=== PATIENT | female | born 1995 | race Caucasian/White ===

== ENCOUNTER 2019-11-29 23:48 | Observation (INO) | payer OTHER, SELFPAY ==
--- NOTE | 2019-11-29 23:48 | OBADM ---
This patient, Sierra Cheng, admitted to the OB room Labor/Delivery/Recovery 105 for observation. Patient/family oriented to hospital policies and general routines including ID bracelet, bed and alarms, visiting hours, pain management, procedures, bathroom and other care routines, personal items, smoking policy, room service/diet, and visiting hours. Patient/Family are encouraged to report perceived risks to care and to ask questions if they do not understand what they are told or what they should do.
[2019-11-30 00:07] VITALS: BP 105/71; PULSE 96
[2019-11-30 00:16] VITALS: BP 101/64; PULSE 81
[2019-11-30 00:21] VITALS: BMI 25.0
[2019-11-30 00:31] VITALS: BP 96/37; PULSE 89
[2019-11-30 01:07] LABS: Add Urine Microscopic? YES; Appearance Urine Clear (Clear); Bacteria Urine Trace /hpf; Bilirubin Urine Negative (Negative); Blood Urine Negative (Negative); Color Urine Yellow (Yellow); Glucose Urine UA Negative (Negative); Ketones Urine 1+ mg/dL (Negative); Leukocyte Esterase Ur Negative LEU/UL (Negative); Mucus Urine Moderate /lpf; Nitrate Urine Negative (Negative); Protein Urine Negative (Negative); RBC Urine 0-2 /hpf (0-2); Specific Grav Ur 1.014 (1.001-1.035); Squamous Epithelial Cell Urine Occasional /hpf (Few); Urobilinogen Urine Negative mg/dL (<2.0); WBC Urine 0-3 /hpf
--- NOTE | 2019-11-30 02:29 | PC.NURSE ---
Updated Dr. Gonsalez of unchanged SVE after 2 hours of monitoring. ROM plus results were negative for SROM. VSS. UA results given. Discharge orders received.
--- NOTE | 2019-11-30 02:45 | PC.NURSE ---
Discharge instructions reviewed with patient. Labor precautions reviewed. Patient states understanding of labor precautions and feels comfortable going home. Patient denies questions at present time.
--- NOTE | 2019-11-30 02:54 | PC.NURSE ---
Patient left ambulating from OB unit.
--- NOTE | 2019-12-16 08:30 | P.PNOB_ITS ---
OB - Triage/Final Diagnosis Evaluation Laboratory results: Laboratory Tests 11/30/19 00:55 Urine Color Yellow Urine Appearance Clear Urine pH 6.0 Ur Specific [place] 1.014 Urine Protein Negative Urine Glucose (UA) Negative Urine Ketones 1+ H Ur Blood (Man) Negative Urine Nitrate Negative Urine Bilirubin Negative Urine Urobilinogen Negative Leukocyte Esterase Rfl Negative Urine RBC 0-2 Urine WBC 0-3 Ur Squamous Epith Cells Occasional Urine Bacteria Trace Urine Mucus Moderate H Final Diagnosis (1) False labor: Code(s): O47.9 - False labor, unspecified Status: Acute
== END 2019-11-30 02:54 | disposition home or self-care (01) ==
PROVIDERS: Admitting Provider Obstetrics & Gynecology; Visit Provider Obstetrics & Gynecology
DX: O47.9 False labor, unspecified (principal); Z3A.00 Weeks of gestation of pregnancy not specified
CPT/HCPCS: 81001; G0378; G0379

== ENCOUNTER 2024-05-11 14:17 | Observation (INO) | payer SELFPAY ==
[2024-05-11 13:45] VITALS: BP 109/68; PULSE 82
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
[2024-05-11 14:00] VITALS: BP 110/71; PULSE 67
[2024-05-11 14:15] VITALS: BP 106/66; PULSE 64
[2024-05-11 14:30] VITALS: BP 107/73; PULSE 92
[2024-05-11] MEDS: FAMOTIDINE 20 MG/2 ML VIAL IV PUSH (15:51)
[2024-05-11] MEDS: ONDANSETRON INJ 4 MG/2 ML VIAL IV PUSH (15:51)
[2024-05-11] MEDS: LACTATED RINGERS 1,000 ML 125 ML IV CONT (15:53)
[2024-05-11 16:02] LABS: Basophils Percent Auto 0.5 % (0.2-1.2); Eosinophils Absolute Auto 0.1 K/mm3 (0-0.3); Eosinophils Percent Auto 0.9 % (0-4.4); Hematocrit 30.8 % (37.0-47.0); Hemoglobin 10.3 g/dL (12.0-15.0); Immature Granulocyte Percent A 1.1 % (0-0.5); Lymphocytes Absolute Auto 2.01 K/mm3 (0.9-3.2); Lymphocytes Percent Auto 22.8 % (18.3-44.2); Mean Corpuscular HGB Conc 33.4 g/dl (32-36); Mean Corpuscular Hemoglobin 30.7 pg (26-34); Mean Corpuscular Volume 91.7 fl (80-100); Mean Platelet Volume 10.7 fl (7.4-10.4); Monocytes Absolute Auto 0.5 K/mm3 (0.1-0.6); Monocytes Percent Auto 5.3 % (2.6-8.5); Neutrophils Absolute Auto 6.1 K/mm3 (1.3-6.7); Neutrophils Percent Auto 69.4 % (45.5-73.1); Platelet Count Result 259 k/mm3 (150-375); Red Blood Count 3.36 M/mm3 (4.2-5.4); White Blood Count 8.8 K/mm3 (4.5-10.0)
[2024-05-11 16:13] LABS: Alanine Aminotransferase 13 U/L (6-35); Albumin Level 3.4 g/dL (3.5-5.1); Alkaline Phosphatase 158 U/L (38-126); Anion Gap 2 mmol/L (4-12); Aspartate Amino Transferase 19 U/L (14-36); Bilirubin,Total 0.4 mg/dL (0.2-1.3); Blood Urea Nitrogen 4 mg/dL (7-17); Calcium 8.2 mg/dL (8.4-10.2); Carbon Dioxide 23 mmol/L (22-30); Chloride 107 mmol/L (98-107); Estimated Glomerular Filt Rate > 60; Glucose 79 mg/dL (65-110); Potassium 3.3 mmol/L (3.4-5.0); Sodium 132 mmol/L (137-145)
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
[2024-05-11 19:27] LABS: OBXCEM ROM Plus Negative (Negative)
--- NOTE | 2024-05-11 19:50 | PM.OBTRLD ---
OB - Triage/Final Diagnosis Visit Information Comments/Additional reasons for admission: I have assessed the risk for this patient, Sierra Cheng, and determined that she would benefit from observation care. Evaluation Laboratory results: Laboratory Tests 05/11/24 05/11/24 14:00 15:56 WBC 8.8 RBC 3.36 L Hgb 10.3 L Hct 30.8 L MCV 91.7 MCH 30.7 MCHC 33.4 RDW 13.0 Plt Count 259 MPV 10.7 H Immature Gran % (Auto) 1.1 H Neut % (Auto) 69.4 Lymph % (Auto) 22.8 [place] % (Auto) 5.3 Eos % (Auto) 0.9 Baso % (Auto) 0.5 Lymph # (Auto) 2.01 [place] # (Auto) 0.5 Eos # (Auto) 0.1 Baso # (Auto) 0.0 Abs Immat Gran (auto) 0.10 H Absolute Neuts (auto) 6.1 Absolute Nucleated RBC 0.000 Nucleated RBC % 0.0 Sodium 132 L Potassium 3.3 L Chloride 107 Carbon Dioxide 23 Anion Gap 2 L BUN 4 L Creatinine 0.40 L Estim Creat Clear Calc Not Reportable Estimated GFR > 60 Glucose 79 Calcium 8.2 L Total Bilirubin 0.4 AST 19 ALT 13 Alkaline Phosphatase 158 H Total Protein 7.0 Albumin 3.4 L Membranes Rupture Rom plus negative Vital signs: Vital Signs - 24 hr 05/11/24 13:45 05/11/24 14:00 05/11/24 14:15 Pulse Rate 82 67 64 Blood Pressure 109/68 110/71 106/66 05/11/24 14:30 Pulse Rate 92 Blood Pressure 107/73 Final Diagnosis (1) Abdominal pain affecting : Code(s): O26.899 - Other specified related conditions, unspecified trimester; R10.9 - Unspecified abdominal pain Status: Acute (2) Heartburn during : Code(s): O26.899 - Other specified related conditions, unspecified trimester; R12 - Heartburn Status: Acute
== END 2024-05-11 18:45 | disposition home or self-care (01) ==
PROVIDERS: Admitting Provider Obstetrics & Gynecology; Visit Provider Obstetrics & Gynecology
DX: O26.893 Other specified pregnancy related conditions, third trimester (principal); R10.9 Unspecified abdominal pain; R12 Heartburn; Z3A.32 32 weeks gestation of pregnancy
CPT/HCPCS: 36415; 80053; 84112; 85025; 96374; 96375; G0378; G0379; J2405; J7120

== ENCOUNTER 2024-05-16 12:55 | Observation (INO) | payer OTHER, SELFPAY ==
[2024-05-16 13:46] VITALS: BP 110/62; PULSE 78
--- NOTE | 2024-05-16 14:19 | OBADM ---
This patient, Sierra Cheng, admitted to the OB room OB Post 117 for observation. Patient/family oriented to hospital policies and general routines including ID bracelet, bed and alarms, visiting hours, pain management, procedures, bathroom and other care routines, personal items, smoking policy, room service/diet, and visiting hours. Patient/Family are encouraged to report perceived risks to care and to ask questions if they do not understand what they are told or what they should do.
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
[2024-05-16 14:34] LABS: Add Urine Microscopic? YES; Appearance Urine Turbid (Clear); Bacteria Urine 3+ /hpf; Bilirubin Urine Negative (Negative); Blood Urine Negative (Negative); Color Urine Yellow (Yellow); Glucose Urine UA Negative (Negative); Ketones Urine Trace mg/dL (Negative); Leukocyte Esterase Ur 3+ LEU/UL (Negative); Need Manual Microscopic Reviewed; Nitrate Urine Negative (Negative); Protein Urine Trace mg/dL (Negative); RBC Urine 0-2 /hpf (0-2); Specific Grav Ur 1.013 (1.001-1.035); Squamous Epithelial Cell Urine Many /hpf (Few); Urobilinogen Urine 0.2 mg/dL (<2.0); WBC Urine 21-50 /hpf (0-3); pH Urine 8.5 (5.0-9.0)
[2024-05-16 14:38] LABS: Amorphous Sediment Urine Few
[2024-05-16] MEDS: SODIUM CHLORIDE 0.9% IV 1,000 ML 999 ML IV CONT ×2 (15:28→17:02)
[2024-05-16] MEDS: ONDANSETRON INJ 4 MG/2 ML VIAL IV PUSH (15:28)
[2024-05-16] MEDS: cefTRIAXone 2 GM/NS 100 ML 2 GM/100 ML BAG IVPB (15:29)
[2024-05-16] MEDS: PANTOPRAZOLE 40 MG TABLET PO (15:29)
[2024-05-16 15:52] LABS: Amphetamine Screen Urine Negative (Negative); Barbiturate Screen Urine Negative (Negative); Benzodiazepines Screen Urine Negative (Negative); Cannabinoid Screen Urine Positive (Negative); Cocaine Screen Urine Positive (Negative); Methadone Screen Urine Negative (Negative); Opiate Screen Urine Negative (Negative); Phencyclidine Screen Urine Negative (Negative)
[2024-05-16] MEDS: BISACODYL 10 MG SUPPOSITORY RECTAL (16:03)
[2024-05-16 16:09] LABS: Basophils Percent Auto 0.2 % (0.2-1.2); Eosinophils Absolute Auto 0.1 K/mm3 (0-0.3); Hematocrit 27.9 % (37.0-47.0); Hemoglobin 9.4 g/dL (12.0-15.0); Immature Granulocyte Absolute 0.03 K/mm3 (0.00-0.031); Immature Granulocyte Percent A 0.5 % (0-0.5); Lymphocytes Absolute Auto 1.56 K/mm3 (0.9-3.2); Lymphocytes Percent Auto 25.8 % (18.3-44.2); Mean Corpuscular HGB Conc 33.7 g/dl (32-36); Mean Corpuscular Hemoglobin 30.5 pg (26-34); Mean Corpuscular Volume 90.6 fl (80-100); Mean Platelet Volume 10.2 fl (7.4-10.4); Monocytes Absolute Auto 0.6 K/mm3 (0.1-0.6); Monocytes Percent Auto 9.8 % (2.6-8.5); Neutrophils Absolute Auto 3.8 K/mm3 (1.3-6.7); Neutrophils Percent Auto 62.7 % (45.5-73.1); Platelet Count Result 203 k/mm3 (150-375); Red Blood Count 3.08 M/mm3 (4.2-5.4); Red Cell Distribution Width 12.6 % (11.5-14.5)
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
[2024-05-16 16:19] LABS: Alanine Aminotransferase 12 U/L (6-35); Alkaline Phosphatase 132 U/L (38-126); Anion Gap -5 mmol/L (4-12); Aspartate Amino Transferase 20 U/L (14-36); Bilirubin,Total 0.3 mg/dL (0.2-1.3); Blood Urea Nitrogen 3 mg/dL (7-17); Calcium 8.7 mg/dL (8.4-10.2); Carbon Dioxide 28 mmol/L (22-30); Chloride 104 mmol/L (98-107); Estimated Glomerular Filt Rate > 60; Glucose 84 mg/dL (65-110); Lipase 29 U/L (23-300); Potassium 3.1 mmol/L (3.4-5.0); Sodium 127 mmol/L (137-145)
--- NOTE | 2024-05-16 16:44 | PC.NURSE ---
DCFS notified of pt living situation and positive UDS. Intake number [id number] Yokasta Lopez
[2024-05-16 16:46] LABS: OBXCEM ROM Plus Negative (Negative)
--- NOTE | 2024-05-19 08:49 | P.PNOB_ITS ---
OB - Triage/Final Diagnosis Visit Information Date of evaluation: 05/16/24 Reason for evaluation: other (abdominal pain) Comments/Additional reasons for admission: I have assessed the risk for this patient, Sierra Cheng, and determined that she would benefit from observation care. Evaluation Laboratory results: Laboratory Tests 05/16/24 05/16/24 05/16/24 13:44 14:10 16:04 WBC 6.0 RBC 3.08 L Hgb 9.4 L Hct 27.9 L MCV 90.6 MCH 30.5 MCHC 33.7 RDW 12.6 Plt Count 203 MPV 10.2 Immature Gran % (Auto) 0.5 Neut % (Auto) 62.7 Lymph % (Auto) 25.8 [place] % (Auto) 9.8 H Eos % (Auto) 1.0 Baso % (Auto) 0.2 Lymph # (Auto) 1.56 [place] # (Auto) 0.6 Eos # (Auto) 0.1 Baso # (Auto) 0.0 Abs Immat Gran (auto) 0.03 Absolute Neuts (auto) 3.8 Absolute Nucleated RBC 0.000 Nucleated RBC % 0.0 Sodium 127 L Potassium 3.1 L Chloride 104 Carbon Dioxide 28 Anion Gap -5 L BUN 3 L Creatinine 0.50 L Estim Creat Clear Calc Not Reportable Estimated GFR > 60 Glucose 84 Calcium 8.7 Total Bilirubin 0.3 AST 20 ALT 12 Alkaline Phosphatase 132 H Total Protein 6.0 L Albumin 3.0 L Lipase 29 Urine Color Yellow Urine Appearance Turbid H Urine pH 8.5 Ur Specific [place] 1.013 Urine Protein Trace Urine Glucose (UA) Negative Urine Ketones Trace H Ur Blood (Man) Negative Urine Nitrate Negative Urine Bilirubin Negative Urine Urobilinogen 0.2 Add Ur Microanalysis Reviewed Leukocyte Esterase Rfl 3+ H Urine RBC 0-2 Urine WBC 21-50 H Ur Squamous Epith Cells Many H Amorphous Sediment Few H Urine Bacteria 3+ H Urine Casts 3-5 Membranes Rupture Rom plus negative Urine Opiates Screen Negative Urine Methadone Screen Negative Ur Barbiturates Screen Negative Ur Phencyclidine Scrn Negative Ur Amphetamine Screen Negative U Benzodiazepines Scrn Negative Urine Cocaine Screen Positive A U Cannabinoids Screen Positive A
== END 2024-05-16 18:14 | disposition home or self-care (01) ==
PROVIDERS: Admitting Provider Student in an Organized Health Care Education/Training Program; Visit Provider Student in an Organized Health Care Education/Training Program
DX: O26.893 Other specified pregnancy related conditions, third trimester (principal); R10.9 Unspecified abdominal pain; Z3A.33 33 weeks gestation of pregnancy
CPT/HCPCS: 36415; 80053; 80307; 81001; 83690; 84112; 85025; 87086; 96374; 96375; A9270; G0378; G0379; J0696; J2405; J7030

== ENCOUNTER 2024-11-18 10:21 | Emergency (ER) | payer BC, SELFPAY ==
--- NOTE | 2024-11-18 10:24 | ED_ITS ---
HPI - Dental/Oral General Chief complaint: Dental/Oral Stated complaint: Dental/Oral Time Seen by Provider: 11/18/24 10:25 Source: patient Mode of arrival: ambulatory Limitations: no limitations History of Present Illness HPI Narrative: Sierra is a 29 year old female patient presenting to the clinic today with c/o of chronic dental pain but worsened over the last 3 days. Reporting pain to the right lower jaw. States that when she had children it destroyed her teeth. Denies any fever, chills, or body aches. Is concerned about a dental abscess- had dental abscess 2 years ago. Rates pain 12/20 currently and has been taking Tylenol for pain. Related Data Home Medications ?Medication ?Instructions ?Recorded ?Confirmed ?Last Taken ?Type etonogestrel 68 mg subdermal 1 implant subdermal ONCE 11/18/24 11/18/24 Unknown History implant (Nexplanon) gabapentin 100 mg capsule 100 mg PO DAILY 11/18/24 11/18/24 Unknown History Allergies Allergy/AdvReac Type Severity Reaction Status Date / Time promethazine AdvReac Unknown HIVES/VOMIT Verified 11/18/24 10:30 ING Review of Systems Review of Systems: Pertinent positives per HPI. Patient denies any fever, chills, rash, headache, visual changes, dizziness, cough, shortness of breath, chest pain, palpitations, nausea, vomiting, diarrhea, constipation, abdominal pain, or any urinary issues. PMFSH Comments At the time of my signature, I reviewed and agree with the nursing past medical, surgical, social, and family history. There is no relevant family history pertinent to the patient complaint. Exam Narrative: General: Well-developed, well nourished, in acute pain, tearful Head: Normocephalic, atraumatic Eyes: Pupils equally round and reactive to light bilaterally, EOM intact, sclera and conjunctive clear, no discharge, lids normal Ears: TMs intact and clear, ear canals clear, no drainage, grossly hearing normal. Nose: Nares patent, no discharge, no inflammation, no sinus tenderness. Mouth: Oral pharynx without lesions or masses, poor dentition with multiple cavities and broken teeth, MMM. Dental pain to the right lower jaw with gingival swelling without palpable abscess. Neck: Supple, trachea midline, no enlargement of anterior or posterior cervical nodes, no thyroid masses or goiter palpable. Cardio: Regular rate and rhythm, s1 and s2 normal, no murmur appreciated. Resp: Clear to auscultation bilaterally, no rhonchi, rales, wheezing or rubs Course Course Emergency Course: Portions of this record may have been created with voice recognition software. Level of Care: Express Care Visit Vital Signs Vital signs: Vital Signs Temperature 36.7 C 11/18/24 10:28 Pulse Rate 91 11/18/24 10:28 Respiratory Rate 18 11/18/24 10:28 Blood Pressure 144/101 H 11/18/24 10:28 Pulse Oximetry 98 11/18/24 10:28 Oxygen Delivery Room Air 11/18/24 10:28 Temperature 36.7 C 11/18/24 10:28 Pulse Rate 91 11/18/24 10:28 Respiratory Rate 18 11/18/24 10:28 Blood Pressure 144/101 H 11/18/24 10:28 Pulse Oximetry 98 11/18/24 10:28 Oxygen Delivery Room Air 11/18/24 10:28 Vital signs reviewed MDM - Dental/Oral MDM Narrative Medical decision making narrative: At the time of visit patient is resting comfortably on the exam table. Patient appears to be nontoxic. Patient is tearful in rating pain 8/10. Has been taking Tylenol. Offered 60 mg Toradol injection and patient agrees to this. States she has to have documentation of medication she is taking and she cannot have anything show up on a drug screen as she is regularly tested. Medications: Toradol 60 mg IM given in the clinic today Plan: I suspect patient has dental infection/pain. Prescription for Augmentin and ibuprofen was sent to the pharmacy. Patient continue taking Tylenol. Recommend following up with dentist as soon as possible. Supportive measures were discussed with the patient and they voiced understanding discharge instructions and agrees to treatment plan. Return precautions reviewed Differential Diagnosis Differential diagnosis: Likely gingival abscess, dental caries, toothache, dental abscess, fracture of tooth and aphthous ulcer Discharge Plan Discharge Clinical Impression: Pain, dental, Dental infection Patient Disposition: Home Condition: Stable Instructions: Antibiotic Form, Toothache (ED) Additional Instructions: Toradol 60 mg IM given in the clinic today for pain Take medications as prescribed-Augmentin and ibuprofen Increase fluids and stay well hydrated May take Tylenol additionally as needed for pain or fever-may take 650 mg every 6 hours or you may take a 1000 mg every 8 hours. May apply Orajel to the affected area to help alleviate pain May apply warm or cool compress to the affected area to help alleviate pain Follow-up with your dentist as soon as possible Patient Language: Armenian Prescriptions: New amoxicillin-pot clavulanate 875-125 mg tablet 1 tablet PO Q12H 10 Days Qty: 20 0RF ibuprofen 800 mg tablet 800 mg PO TID 10 Days Qty: 30 0RF No Action Nexplanon 68 mg implant 1 implant subdermal ONCE Rx Instructions: as a single dose gabapentin 100 mg capsule 100 mg PO DAILY Follow-up/Referrals: PHYSICIAN,COUNSELING PROGRAM LEADER [Primary Care Provider] - Time of Disposition: 10:37 Quality NIHSS Nursing Documentation ED NIHSS nursing documentation: reviewed/agree
[2024-11-18 10:28] VITALS: BP 144/101; PULSE 91; RESP 18; TEMP 36.7; O2SAT 98
--- OUTSIDE RECORDS SUMMARY | 2024-11-18 10:30 | XMS_ITS | Data Portability ---
Author Organization [facility] JUAN FRocael [facility] Address [address] [place] [address] Care Team Providers Care Ingredient Scaler Helper Name Role Phone JULIETA JONES Appliance Service Representative Assessment Encounter Date Assessment Date Assessment LastModified by Organization Details LastModified Time 07/06/2024 07/06/2024 Presents today for first PP appointment, delivered vaginally on 06/22/24 [email or web address] Not available 07/06/2024 10:15:43 Plan of Treatment Reminders Order Date Submit Date Provider Last Modified By Organization Details Last Modified Time Details Appointments None recorde d. Lab urinaly sis, dipstic k 2024 025 In-Office Order, Internal Use Only DO Not Attach Compendium DO Not Attach Compendium, Do Not Delete/merge, [id number] 5 10:42:09 urinaly sis, dipstic k 2023 024 [email or web address] In-Office Order, Internal Use Only DO Not Attach Compendium DO Not Attach Compendium, Do Not Delete/merge, [id number] 14:24:07 vaginal pathoge ns panel, LONDON+pro be, vaginal fluid 2023 024 [facility], [address] [place] [address], [address], [place], [address], 4 08:29:18 pregnan cy test, urine 2023 024 [email or web address] In-Office Order, Internal Use Only DO Not Attach Compendium DO Not Attach Compendium, Do Not Delete/merge, [id number] 4 17:13:06 prenata l panel 2023 024 [facility], [address], [address], [place], [address], 4 10:15:00 varicel la zoster virus IgG Ab, QN, IA, serum 2023 024 [facility], [address], [address], [place], [address], 4 10:15:06 drug screen, 14 drugs (detect imed), urine 2023 024 [facility], [address], [address], [place], [address], 4 10:15:03 aneuplo idy risk and X & Y analysi s, chromos ome specifi c circula ting cell free (CCF) DNA, materna l serum 2023 024 [facility], [address], [address], [place], [address], 4 17:05:31 culture , urine 2022 023 [facility], [address], [place], [address], 3 20:09:11 drug screen, urine 2022 023 [facility], [address], [place], [address], 3 20:09:04 hemoglo bin S (hbs), presenc e, blood 2022 023 [facility], [address], [address], [place], [address], 3 20:09:08 varicel la zoster virus IgG Ab, QN, IA, serum 2022 023 [facility], [address], [address], [place], [address], 20:09:12 Hepatit is C IgG Ab, qual, serum 2022 023 [facility], [address], [address], [place], [address], 3 20:09:06 CBC w/ auto diff 2022 023 [facility], [address], [address], [place], [address], 3 03:08:47 RPR (rapid plasma reagin) , serum 2022 023 E[facility]QU[facility]EL [facility], [address], [address], [place], [address], 3 20:09:11 HBsAg (hepati tis B surface Ag), EIA, serum 2022 023 EZEQUIEL [facility], [address], [address], [place], [address], 3 20:09:10 rubella IgG Ab, quant immunoa ssay, serum or plasma 2022 023 E[facility]QU[facility]EL [facility], [address], [address], [place], [address], 3 20:09:09 cf (cystic fibrosi s) profile 2022 023 E[facility], [address], [address], [place], [address], 3 20:09:07 abo group + rh type, blood 2022 023 [facility], [address], [address], [place], [address], 3 20:09:09 antibod y screen, serum or plasma 2022 023 [facility], [address], [address], [place], [address], 3 20:09:08 HIV 1 + 2, meaning ful use set 2022 023 [facility], [address], [place], [address], 3 20:09:12 chlamyd ia trachom atis + neisser ia gonorrh oeae + trichom onas vaginal is DNA panel, LONDON+pro be, unspeci fied specime n 2022 023 [facility], [address], [place], [address], 3 20:09:07 urinaly sis, dipstic k 2022 023 [email or web address] In-Office Order, Internal Use Only DO Not Attach Compendium DO Not Attach Compendium, Do Not Delete/merge, 3 17:07:26 pregnan cy test, urine 2022 023 [email or web address] In-Office Order, Internal Use Only DO Not Attach Compendium DO Not Attach Compendium, Do Not Delete/merge, 3 17:07:26 HBsAg (hepati tis B surface Ag), EIA, serum 2021 022 [facility], [address] [place] [address], [address], [place], [address], 2 10:11:43 hepatit is C Ab, signal- to-cuto ff, serum or plasma 2021 [facility], [address], [address], [place], [address], 10:11:43 RPR (rapid plasma reagin) , serum 2021 [facility], [address] [place] [address] [address], [address], [place], [address], 10:11:44 HIV 1 + 2, meaning ful use set 2021 [facility], [address], [address], [place], [address], 10:11:44 vaginal pathoge ns panel, LONDON+pro be, vaginal fluid 2021 [facility], [address] [place] [address], [address], [place], [address], 10:11:42 pregnan cy test, urine 2021 [email or web address] In-Office Order, Internal Use Only DO Not Attach Compendium DO Not Attach Compendium, Do Not Delete/merge, [id number] 2 12:42:15 Referral pharmac ist referra l 2023 024 [email or web address] So Weinberg MD, [address] [facility] , [address], [place], [address], 4 16:40:26 Procedures None recorde d. Surgeries None recorde d. Imaging US, obstetr ic, materna l evaluat ion + anatomy - Dating/ Anatomy US, LMP September 17, 20232023 024 [facility], [address], [place], [address], 4 18:01:13 Medication Orders albuter ol sulfate HFA 90 mcg/act uation aerosol inhaler 2024 025 [facility], [address], [place], [id number], 5 16:15:40 docusat e sodium 100 mg tablet 2023 024 [facility] #94120, [address], [place], [place], [id number], 4 17:13:05 pyridox ine (vitami n B6) 25 mg tablet 2023 024 [facility] #88103, [address], [place], [place], [id number], 4 17:13:04 Unisom (doxyla mine) 25 mg tablet 2023 024 [facility] #90442, [address], [place], [place], [id number], 4 17:13:05 Prenata l 28 mg iron-80 0 mcg tablet 2023 024 [facility] #19622, [address], [place], [place], [id number], 4 17:13:04 cephale janny 500 mg capsule 2022 023 mmetias [facility] #36405, [address], [place], [place], [id number], 4 16:25:23 sulfame thoxazo le 800 mg-trim ethopri m 160 mg tablet 2021 022 [email or web address] [facility], [address] [facility] [address], [place], [place], [id number], 3 16:25:37 Depo-Pr overa 150 mg/mL intramu scular suspens ion 2021 022 [email or web address] [facility], [address] [facility] [address], [place], [place], [id number], 3 16:24:14 Patient TargetsNo targets recorded. Patient Instructions Encounter Date Encounter Id Patient Instructions Last Modified By Organization Details Last Modified Time 09/06/2022 [id number] NOB ACOG visit w/nurse for education, WOMBSS, and lab work OB Episode initiated & NOB lab work ordered per OB protocol ACOG education discussed & handouts provided as follows: Proof of About Trimesters in Weeks/Months Growth during Body Changes in Common Problems Approved Medications During Immunizations & Routine Testing During Your /When To Contact Us Bleeding During Labor Nutrition & Exercise (BMI: 26.9) & Weight Gain & Physical Activity Benefits Dental Care Dental Consent Given Traveling While Sex During STDS & Marijuana & 40 Reason to Go the Full 40 Weeks Skin to Skin after Safe Sleep/SUID Control Options for Recommended Apps WOMBSS: Care Plan WOMBSS: Screening Tools [employer]/[facility] rosa isela Navigator [place] & [facility] [employer] [place] Patient Incentive Notification Program NOB scheduled w/Provider Micah 09/13/22 @ 7:30 AM Patients questions answered and patient verbalized understanding of education provided this visit. CRYSTAL Whyte Not available 09/06/2022 17:21:58 07/06/2024 [id number] Care at Home With Your Baby: Care Instructions [email or web address] Not available 07/06/2024 10:42:09 learning about asthma [email or web address] Not available 07/06/2024 10:42:09 Attending Physician Attestation I personally saw and examined the patient with the resident. I have reviewed the documentation and agree with the history, physical findings, work-up, and medical decision making as recorded. Kelle Ledesma MD [email or web address] Not available 07/06/2024 10:45:31 Reason for Referral Pharmacist Referral for Rout ine care Referring Physician: Kelle Ledesma, Family Medicine, Encounter Date: 12/23/2023 Results Created Date Observation Date Name Description Value Unit Range Abnormal Flag Note LastModifiedBy Organization Detail LastModifiedTime 06/29/19 22 07/01/2021 CT, NG, TRICH VAG BY LONDON chlamydia by LONDON Negati ve negati ve Not Available [facility] ([facility]) [address] [place], [address], 07/01/2021 10:11:42 06/29/19 22 07/01/2021 CT, NG, TRICH VAG BY LONDON gonococcus by [place]ONDON Negati ve negati ve Not Available [facility] ([facility]) [address] [place], [address], 07/01/2021 10:11:42 06/29/19 22 07/01/2021 CT, NG, TRICH VAG BY LONDON trich vag by LONDON Negati ve negati ve Not Available [facility] ([facility]) [address] [place], [address], 07/01/2021 10:11:42 06/29/19 22 06/30/2021 HCV ANTIB LEONORA RFX TO QUANT PCR HCV Ab <0.1 s/co_ ratio 0.0-0. 9 Not Available [facility] ([facility]) [address] [place], [address], 07/01/2021 10:11:43 06/29/19 22 06/30/2021 HCV ANTIB LEONORA RFX TO QUANT PCR interpretati on: Commen t Negat yulia Not infec arun with HCV, unles s recen t infec tion is suspe cted or other evide nce exist s to indic ate HCV infec tion. Not Available [facility] ([facility]) [address], [place], [address], 07/01/2021 10:11:43 06/29/19 22 07/01/2021 HEP B SURFA CE AG HBsAg screen Confir m. indica arun negati ve Not Available [facility] ([facility]) [address] [place], [address], 07/01/2021 10:11:43 06/29/19 22 07/01/2021 HEP B SURFA CE AG HBsAg Perfor med Not Available [facility] ([facility]) [address], [place], [address], 07/01/2021 10:11:43 06/29/19 22 06/30/2021 HIV AB/P2 4 AG WITH REFLE X HIV Ab/P24 Ag screen Non Reacti ve non reacti ve HIV Negat yulia HIV-1 /HIV- 2 antib odies and HIV-1 p24 antig en were NOT detec arun. There is no labor atory evide nce of HIV infec tion. Not Available [facility] ([facility]) [address], [place], [address], 07/01/2021 10:11:44 06/29/19 22 06/30/2021 RPR RPR Non Reacti ve non reacti ve Not Available [facility] ([facility]) [address] [place], [address], 07/01/2021 10:11:44 06/29/19 22 06/29/2021 pregn angel test, urine HCG negati ve Not Available In-Office Order Internal Use Only DO Not Attach Compendium DO Not Attach Compendium, Do Not Delete/merge, [id number] 06/29/2021 12:31:12 08/11/19 23 08/11/2022 HCG,B ETA SUBUN IT, QNT HCG,beta subunit,qnt, serum 47276 mIU/m L Femal e (Non- pregn ant) 0 - 5 (Post menop ausal ) 0 - 8 Femal e (Preg nant) Weeks of Gesta tion 3 6 - 71 4 10 - 750 5 951 - 6444 6 737 - 29032 7 4276 -1684 63 8 40911 -9976 71 9 00302 -5492 10 10 78946 -3573 77 12 10963 -3279 12 14 94401 - 02821 15 73769 - 17160 16 4822 - 60455 17 8639 - 87767 18 6853 - 29253 Resul ts confi rmed on dilut ion. Alphonso ECLIA metho dolog y Not Available [facility] ([facility]) [address], [place], [address], 08/11/2022 09:37:42 09/07/1909/06/2022 CBC WITH DIFFE RENTI AL/PL ATELE T WBC 9.0 K/uL 3.4-10 .8 Not Available [facility] [address] [place], [address], 09/07/2022 03:08:47 09/07/1909/06/2022 CBC WITH DIFFE RENTI AL/PL ATELE T RBC 4.0 M/uL 4.2-5. 4 below low normal Not Available [facility] [address] [place], [address], 09/07/2022 03:08:47 09/07/19 23 09/06/2022 CBC WITH DIFFE RENTI AL/PL ATELE T hemoglobin 12.0 g/dL 11.5-1 5.5 Not Available [facility] [address] [place], [address], 09/07/2022 03:08:47 09/07/1909/06/2022 CBC WITH DIFFE RENTI AL/PL ATELE T hematocrit 35.7 % 36.0-4 8.0 below low normal Not Available [facility] [address] [place], [address], 09/07/2022 03:08:47 09/07/19 23 09/06/2022 CBC WITH DIFFE RENTI AL/PL ATELE T MCV 90 fL 80-95 Not Available [facility] [address] [place], [address], 09/07/2022 03:08:47 09/07/19 23 09/06/2022 CBC WITH DIFFE RENTI AL/PL ATELE T MCH 30 pg 27-32 Not Available [facility] [address] [place], [address], 09/07/2022 03:08:47 09/07/19 23 09/06/2022 CBC WITH DIFFE RENTI AL/PL ATELE T MCHC 34 g/dL 32-36 Not Available [facility] [address] [place], [address], 09/07/2022 03:08:47 09/07/19 23 09/06/2022 CBC WITH DIFFE RENTI AL/PL ATELE T RDW 11.9 % 11.5-1 4.5 Not Available [facility] [address] [place], [address], 09/07/2022 03:08:47 09/07/1909/06/2022 CBC WITH DIFFE RENTI AL/PL ATELE T platelets 282 K/uL 155-37 9 MPV 10.5 FL 8.9-1 2.7 N Not Available [facility] [address] [place], [address], 09/07/2022 03:08:47 09/07/19 23 09/06/2022 CBC WITH DIFFE RENTI AL/PL ATELE T neutrophils 61.7 % 40.0-7 4.0 Not Available [facility] [address] [place], [address], 09/07/2022 03:08:47 09/07/19 23 09/06/2022 CBC WITH DIFFE RENTI AL/PL ATELE T lymphs 25.3 % 14.0-4 6.0 Not Available [facility] [address] [place], [address], 09/07/2022 03:08:47 09/07/19 23 09/06/2022 CBC WITH DIFFE RENTI AL/PL ATELE T monocytes 7.2 % 4.0-12 .0 Not Available [facility] [address] [place], [address], 09/07/2022 03:08:47 09/07/19 23 09/06/2022 CBC WITH DIFFE RENTI AL/PL ATELE T eos 4 % 0-5 Not Available [facility] [address] [place], [address], 09/07/2022 03:08:47 09/07/19 23 09/06/2022 CBC WITH DIFFE RENTI AL/PL ATELE T basos 0.6 % 0.0-1. 0 Not Available [facility] [address] [place], [address], 09/07/2022 03:08:47 09/07/19 23 09/06/2022 CBC WITH DIFFE RENTI AL/PL ATELE T neutrophils (absolute) 5.5 K/uL 1.4-7. 0 Not Available [facility] [address] [place], [address], 09/07/2022 03:08:47 09/07/19 23 09/06/2022 CBC WITH DIFFE RENTI AL/PL ATELE T lymphs (absolute) 2.3 K/uL 0.7-3. 1 Not Available [facility] [address] [place], [address], 09/07/2022 03:08:47 09/07/19 23 09/06/2022 CBC WITH DIFFE RENTI AL/PL ATELE T monocytes(ab solute) 0.6 K/uL 0.1-0. 9 Not Available [facility] [address] [place], [address], 09/07/2022 03:08:47 09/07/19 23 09/06/2022 CBC WITH DIFFE RENTI AL/PL ATELE T eos (absolute) 0.3 K/uL 0.0-0. 4 Not Available [facility] [address] [place], [address], 09/07/2022 03:08:47 09/07/19 23 09/06/2022 CBC WITH DIFFE RENTI AL/PL ATELE T baso (absolute) 0.1 K/uL 0.0-0. 3 Not Available [facility] [address] [place], [address], 09/07/2022 03:08:47 09/07/19 23 09/06/2022 CBC WITH DIFFE RENTI AL/PL ATELE T immature granulocytes 1.7 % Not Available [facility] Department [address] [place], [address], 09/07/2022 03:08:47 09/07/19 23 09/06/2022 CBC WITH DIFFE RENTI AL/PL ATELE T immature grans (abs) 0.2 K/uL Not Available [facility] [address] [place], [address], 09/07/2022 03:08:47 09/07/19 23 09/06/2022 CBC WITH DIFFE RENTI AL/PL ATELE T NRBC 0 % Not Available [facility] [address] [place], [address], 09/07/2022 03:08:47 09/07/19 23 09/13/2022 TOXAS SURE SELEC T 13 (MW) summary report (summary) FINAL ===== ===== ===== ===== ===== ===== ===== ===== ===== ===== ===== ===== ===== === TOXAS SURE SELEC T 13 (MW) ===== ===== ===== ===== ===== ===== ===== ===== ===== ===== ===== ===== ===== === Test Resul t Flag Units Drug Prese nt Benzo ylecg onine 33 ng/mg creat Benzo ylecg onine is a metab olite of cocai ne; its prese nce indic ates use of this drug. Sourc e is most commo nly illic it, but cocai ne is prese nt in some topic al anest hetic solut ions. Carbo xy-TH C >282 ng/mg creat Carbo xy-TH C is a metab olite of tetra hydro canna binol (THC) . Sourc e of THC is most commo nly herba l marij uana or marij uana- based produ cts, but THC is also prese nt in a sched uled presc ripti on medic ation . Trace amoun ts of THC can be prese nt in hemp and canna bidio l (CBD) produ cts. This test is not inten ded to disti nguis h betwe en delta -9-te trahy droca nnabi nol, the predo minan t form of THC in most herba l or marij uana- based produ cts, and delta -8-te trahy droca nnabi nol. Victoria codon e 693 ng/mg creat Victoria morph one 78 ng/mg creat Dihyd rocod eine 61 ng/mg creat Norhy droco done >1408 ng/mg creat Sourc es of hydro codon e inclu de sched uled presc ripti on medic ation s. Victoria morph one, dihyd rocod eine and norhy droco done are expec arun metab olite s of hydro codon e. Victoria morph one and dihyd rocod eine are also avail able as sched uled presc ripti on medic ation s. ===== ===== ===== ===== ===== ===== ===== ===== ===== ===== ===== ===== ===== === Test Resul t Flag Units Ref Range Creat inine 355 mg/dL >=20 ===== ===== ===== ===== ===== ===== ===== ===== ===== ===== ===== ===== ===== === Decla red Medic ation s: Medic ation list was not provi ded. ===== ===== ===== ===== ===== ===== ===== ===== ===== ===== ===== ===== ===== === For clini francis consu ltati on, pleas e call [phone]. ===== ===== ===== ===== ===== ===== ===== ===== ===== ===== ===== ===== ===== === Not Available [facility] ([facility]) [address] [place], [address], 09/13/2022 20:09:04 09/07/19 23 09/13/2022 TOXAS SURE SELEC T 13 (MW) pdf . Not Available [facility] ([facility]) [address] [place], [address], 09/13/2022 20:09:04 09/07/19 23 09/07/2022 HCV ANTIB LEONORA RFX TO QUANT PCR HCV Ab Non Reacti ve nonrea ctive Not Available [facility] ([facility]) [address] [place], [address], 09/13/2022 20:09:06 09/07/19 23 09/08/2022 CT, NG, TRICH VAG BY LONDON chlamydia by LONDON Negati ve negati ve Not Available [facility] ([facility]) [address] [place], [address], 09/13/2022 20:09:07 09/07/19 23 09/08/2022 CT, NG, TRICH VAG BY LONDON gonococcus by LONDON Negati ve negati ve Not Available [facility] ([facility]) [address], [place], [address], 09/13/2022 20:09:07 09/07/19 23 09/08/2022 CT, NG, TRICH VAG BY LONDON trich vag by LONDON Negati ve negati ve Not Available [facility] ([facility]) [address] [place], [address], 09/13/2022 20:09:07 09/07/19 23 09/06/2022 CYSTI C FIBRO SIS PROFI LE comment: Commen t The assay provi tiki infor matio n inten ded to be used for mary er scree deonna in adult s of repro ducti ve age, as an aid in [facility] scree deonna, and as a confi rmato ry test for anoth er medic ally estab lishe d diagn osis in [facility] and child catherine. The test is not indic ated for use in diagn ostic testi ng, pre-i mplan tatio n scree deonna, or for any stand -ton e diagn ostic purpo ses witho ut confi rmati on by ano er medic ally estab lishe d diagn ostic produ ct or proce dure. Not Available [facility] ([facility]) [address] [place], [address], 09/13/2022 20:09:07 09/07/19 23 09/13/2022 CYSTI C FIBRO SIS PROFI LE CF, screen Commen t: RESUL TS: Negat yulia for 32 mutat ions yousuf zed INTER PRETA TION: This indiv idual is negat yulia for the mutat ions yousuf zed. This negat yulia resul t may need furth er inter preta tion depen ding on the clini francis indic ation . This resul t reduc es but does not elimi rui the risk to be a CF mary er. COMME NTS: The detec tion rate varie s with [place] and is liste d below . The prese nce of an undet ected mutat ion in the CF gene canno t be ruled out. In the absen ce of famil y histo ry, the remai deonna risk that a perso n with a negat yulia resul t could have at least one CF mutat ion is liste d in the table . If there is a famil y histo ry of CF, these risk figur es do not apply . As detai led infor cheryl morales reghoang morel this indiv idual 's famil y histo ry would permi t a more accur ate asses sment of this indiv idual 's risk to be a mary er of cysti c fibro sis, pleas e conta ct [facility] [place] [facility] Servi susan at for a andreas ed repor t. Mutat ion Detec tion Detec tion rates are based on mutat ion Rates among Ethni c frequ encie s in patie nts affec arun with Group s cysti c fibro sis. Among indiv idual s with an atypi francis or mild prese ntati on (e.g. conge nital absen ce of the vas defer ens, pancr eatit is) detec tion rates may vary from those provi ded here: Mary er risk reduc tion when no famil y histo ry Detec tion [place]ni city Rate Ashke nazi 06/07 to 97% Jewis h Cauca alejandro 06/06 to 90% (non- [place]) Afric an-Am jovan n to 69% [place] to 73% to 55% This inter preta tion is based on the clini francis and famil y relat ionsh ip infor cheryl n provi ded and the curre nt under stand ing of the molec ulhoang casper ics of this condi tion. MUTAT IONS YOUSUF ZED: G85E V520F W1282 X 2183A A to G R117H G542X N1303 K 2184d Amos R334W S549N 394de lTT 2789+ 5G to A R347H S549R 621+1 G to T 3120+ 1G to A R347P G551D 711+1 G to T 3659d elC A455E R553X 1078d elT 3849+ 10kbC to T Delta I507 R560T 1717- 1G to A 3876d Amos Delta F508 R1162 X 1898+ 1G to A 3905i nsT METHO DS/LI MITAT IONS: DNA is isola arun from the sampl e and teste d for the 32 CF mutat ions on the [employer] orm (Saima nex). Regio ns of the CFTR gene are ampli fied enzym atica lly and subje cted to a solut ion-p hase multi plex allel e-spe cific prime r exten pravin with subse quent hybri dizat ion to a bead array and fluor escen ce detec tion. Polym orphi sms F508C , I506V and I507V are inclu ded in this panel to rule out false posit yulia delta F508 homoz ygote s. Refle x testi ng of 5T is inclu ded in the panel for R117H inter preta tion. False posit yulia or negat yulia resul ts may occur for reaso ns that inclu de casper ic varia nts, blood trans fusio ns, bone marro w trans plant ation , antonino eous repre senta tion of famil y relat ionsh ips or conta minat ion of a sampl e with mater nal cells . REFER ENCES : 1. Updat es on Mary er Scree deonna for Cysti c Fibro sis. (2011 ) Am J Ob Gynec ol 117(4 ):102 8-103 1 2. Willie n, et al. (2004 ) [facility] [facility] 6:387 -91 3. Adriana hillman, et al. (2002 ) [facility] [facility] 4:379 -391 4. Preco ncept ion and prena gary mary er scree deonna for cysti c fibro sis: (2000 )ACOG .ACMG publi catio n Resul ts Relea sed By: Raleigh darby, PhD, FAC Repor t Relea sed By: Dr.Bi fiordaliza Joya h,PhD ,FAC G Not Available [facility] ([facility]) [address] [place], [address], 09/13/2022 20:09:07 09/07/19 23 09/13/2022 CYSTI C FIBRO SIS PROFI LE pdf . Not Available [facility] ([facility]) [address] [place], [address], 09/13/2022 20:09:07 09/07/19 23 09/07/2022 HB SOLU + RFLX FRAC hemoglobin (HGB) solubility Negati ve negati ve Not Available [facility] ([facility]) [address] [place], [address], 09/13/2022 20:09:08 09/07/19 23 09/07/2022 ANTIB LEONORA SCREE N antibody screen Negati ve negati ve Not Available [facility] ([facility]) [address] [place], [address], 09/13/2022 20:09:08 09/07/19 23 09/07/2022 ABO GROUP ING AND RHO(D ) TYPIN G ABO grouping O Not Available [facility] ([facility]) [address] [place], [address], 09/13/2022 20:09:09 09/07/19 23 09/07/2022 ABO GROUP ING AND RHO(D ) TYPIN G Rh factor Positi ve Pleas e note: Prior recor ds for this patie nt's ABO / Rh type are not avail able for addit ional verif icati on. Not Available [facility] ([facility]) [address] [place], [address], 09/13/2022 20:09:09 09/07/19 23 09/07/2022 RUBEL LA ANTIB ODIES , IGG rubella antibodies, IgG 1.62 index immune >0.99 Non-i mmune <0.90 Equiv ocal 0.90 - 0.99 Immun e >0.99 Not Available [facility] ([facility]) [address], [place], [address], 09/13/2022 20:09:09 09/07/19 23 09/07/2022 HBSAG SCREE N HBsAg screen Negati ve negati ve Not Available [facility] ([facility]) [address] [place], [address], 09/13/2022 20:09:10 09/07/19 23 09/08/2022 URINE CULTU RE, ROUTI NE urine culture, routine Final report Not Available [facility] ([facility]) [address], [place], [address], 09/13/2022 20:09:11 09/07/19 23 09/08/2022 URINE CULTU RE, ROUTI NE result 1 No growth Not Available [facility] ([facility]) [address], [place], [address], 09/13/2022 20:09:11 09/07/19 23 09/07/2022 RPR, RFX QN RPR/C ONFIR M TP RPR Non Reacti ve nonrea ctive Not Available [facility] ([facility]) [address] [place], [address], 09/13/2022 20:09:11 09/07/19 23 09/07/2022 HIV AB/P2 4 AG WITH REFLE X HIV Ab/P24 Ag screen Non Reacti ve nonrea ctive HIV Negat yulia HIV-1 /HIV- 2 antib odies and HIV-1 p24 antig en were NOT detec arun. There is no labor atory evide nce of HIV infec tion. Not Available [facility] ([facility]) [address], [place], [address], 09/13/2022 20:09:12 09/07/19 23 09/07/2022 VARIC MIROSLAVA- ZOSTE R V AB, IGG varicella zoster IgG <135 index immune >165 below low normal Negat yulia <135 Equiv ocal 135 - 165 Posit yulia >165 A posit yulia resul t gener ally indic ates expos ure to the patho gen or admin istra tion of speci fic immun oglob ulins , but it is not indic ation of activ e infec tion or stage of disea se. Not Available [facility] ([facility]) [address], [place], [address], 09/13/2022 20:09:12 09/07/19 23 09/06/2022 pregn angel test, urine HCG positi ve Not Available In-Office Order Internal Use Only DO Not Attach Compendium DO Not Attach Compendium, Do Not Delete/merge, 09/06/2022 16:44:04 09/07/19 23 09/06/2022 urina lysis , dipst ick Leukocytes Small Not Available In-Offi ce Order Internal Use Only DO Not Attach Compendium DO Not Attach Compendium, Do Not Delete/merge, 09/06/2022 16:43:58 09/07/19 23 09/06/2022 urina lysis , dipst ick Nitrite negati ve Not Available In-Office Order Internal Use Only DO Not Attach Compendium DO Not Attach Compendium, Do Not Delete/merge, 09/06/2022 16:43:58 09/07/19 23 09/06/2022 urina lysis , dipst ick Urobilinogen 1 Not Available In-Of fice Order Internal Use Only DO Not Attach Compendium DO Not Attach Compendium, Do Not Delete/merge, [id number] 09/06/2022 16:43:58 09/07/19 23 09/06/2022 urina lysis , dipst ick Protein 100 Not Available In-Office Order Internal Use Only DO Not Attach Compendium DO Not Attach Compendium, Do Not Delete/merge, 09/06/2022 16:43:58 09/07/19 23 09/06/2022 urina lysis , dipst ick pH 7.0 Not Available In-Office Order Internal Use Only DO Not Attach Compendium DO Not Attach Compendium, Do Not Delete/merge, 09/06/2022 16:43:58 09/07/19 23 09/06/2022 urina lysis , dipst ick Blood Modera te Not Available In-Office Order Internal Use Only DO Not Attach Compendium DO Not Attach Compendium, Do Not Delete/merge, 09/06/2022 16:43:58 09/07/19 23 09/06/2022 urina lysis , dipst ick Specific Oriska 1.020 Not Available In-Off ice Order Internal Use Only DO Not Attach Compendium DO Not Attach Compendium, Do Not Delete/merge, 09/06/2022 16:43:58 09/07/1909/06/2022 urina lysis , dipst ick Ketone Large (80) Not Available In-Office Order Internal Use Only DO Not Attach Compendium DO Not Attach Compendium, Do Not Delete/merge, 09/06/2022 16:43:58 09/07/19 23 09/06/2022 urina lysis , dipst ick Bilirubin Small Not Available In-Offic e Order Internal Use Only DO Not Attach Compendium DO Not Attach Compendium, Do Not Delete/merge, 09/06/2022 16:43:58 09/07/19 23 09/06/2022 urina lysis , dipst ick Glucose Negati ve Not Available In-Office Order Internal Use Only DO Not Attach Compendium DO Not Attach Compendium, Do Not Delete/merge, 09/06/2022 16:43:58 09/07/19 23 09/06/2022 urina lysis , dipst ick Appearance Turbid Not Available In-Offi ce Order Internal Use Only DO Not Attach Compendium DO Not Attach Compendium, Do Not Delete/merge, 09/06/2022 16:43:58 09/07/19 23 09/06/2022 urina lysis , dipst ick Color Helm Not Available In-Office Order Internal Use Only DO Not Attach Compendium DO Not Attach Compendium, Do Not Delete/merge, [id number] 09/06/2022 16:43:58 09/07/19 23 09/07/2022 INTER PRETA TION: interpretati on: Commen t Not infec arun with HCV unles s early or acute infec tion is suspe cted (whic h may be delay ed in an immun ocomp romis ed indiv idual ), or other evide nce exist s to indic ate HCV infec tion. Not Available [facility] ([facility]) [address], [place], [address], 09/13/2022 20:09:06 12/23/19 24 12/25/2023 NUSWA B VAGIN ITIS PLUS (VG+) atopobium vaginae LOW - 0 score Not Available [facility] ([facility]) [address], [place], [address], 12/25/2023 08:29:18 12/23/19 24 12/25/2023 NUSWA B VAGIN ITIS PLUS (VG+) bvab 2 LOW - 0 score Not Available [facility] ([facility]) [address], [place], [address], 12/25/2023 08:29:18 12/23/19 24 12/25/2023 NUSWA B VAGIN ITIS PLUS (VG+) megasphaera 1 LOW - 0 score Calcu late total score by sagrario ontiveros the 3 indiv idual bacte rial vagin osis (BV) marke r score s toget her. Total score is inter prete d as follo ws: Total score 0-1: Indic ates the absen ce of BV. Total score 2: Indet ermin ate for BV. Addit ional clini francis data shoul d be evalu ated to estab azalia a diagn osis. Total score 3-6: Indic ates the prese nce of BV. Not Available [facility] ([facility]) [address], [place], [address], 12/25/2023 08:29:18 12/23/19 24 12/25/2023 NUA B VAGIN ITIS PLUS (VG+) chanell albicans, [place] NEGATI VE negati ve Not Available [facility] ([facility]) [address], [place], [address], 12/25/2023 08:29:18 12/23/19 24 12/25/2023 NUA B VAGIN ITIS PLUS (VG+) chanell glabrata, [place] NEGATI VE negati ve Not Available [facility] ([facility]) [address], [place], [address], 12/25/2023 08:29:18 12/23/19 24 12/25/2023 NUA B VAGIN ITIS PLUS (VG+) trich vag by [place] NEGATI VE negati ve Not Available [facility] ([facility]) [address], [place], [address], 12/25/2023 08:29:18 12/23/19 24 12/25/2023 NUA B VAGIN ITIS PLUS (VG+) chlamydia trachomatis, [place] NEGATI VE negati ve Not Available [facility] ([facility]) [address], [place], [address], 12/25/2023 08:29:18 12/23/19 24 12/25/2023 NUA B VAGIN ITIS PLUS (VG+) neisseria gonorrhoeae, [place] NEGATI VE negati ve Not Available [facility] ([facility]) [address], [place], [address], 12/25/2023 08:29:18 12/23/19 24 12/23/2023 pregn angel test, urine HCG positi ve Not Available In-Office Order Internal Use Only DO Not Attach Compendium DO Not Attach Compendium, Do Not Delete/merge, [id number] 12/23/2023 16:24:14 02/20/2002/21/2024 INTER PRETA TION: interpretati on: Commen t Not infec arun with HCV unles s early or acute infec tion is suspe cted (whic h may be delay ed in an immun ocomp romis ed indiv idual ), or other evide nce exist s to indic ate HCV infec tion. Not Available [facility] ([facility]) [address], [place], [address], 02/26/2024 10:14:59 02/20/2002/21/2024 PREGN ANGEL, INITI AL SCREE N HBsAg screen NEGATI VE negati ve Not Available [facility] ([facility]) [address], [place], [address], 02/26/2024 10:14:59 02/20/2002/21/2024 PREGN ANGEL, INITI AL SCREE N HCV Ab NON REACTI VE nonrea ctive Not Available [facility] ([facility]) [address], [place], [address], 02/26/2024 10:14:59 02/20/2002/21/2024 PREGN ANGEL, INITI AL SCREE N RPR NON REACTI VE nonrea ctive Not Available [facility] ([facility]) [address] [place], [address], 02/26/2024 10:14:59 02/20/2002/21/2024 PREGN ANGEL, INITI AL SCREE N rubella antibodies, IgG 1.49 index immune >0.99 Non-i mmune <0.90 Equiv ocal 0.90 - 0.99 Immun e >0.99 Not Available [facility] ([facility]) [address], [place], [address], 02/26/2024 10:14:59 02/20/2002/21/2024 PREGN ANGEL, INITI AL SCREE N ABO grouping O Not Available [facility] ([facility]) [address], [place], [address], 02/26/2024 10:14:59 02/20/2002/21/2024 PREGN ANGEL, INITI AL SCREE N Rh factor POSITI VE Pleas e note: Prior recor ds for this patie nt's ABO / Rh type are not avail able for addit ional verif icati on. Not Available [facility] ([facility]) [address] [place], [address], 02/26/2024 10:14:59 02/20/2002/21/2024 PREGN ANGEL, INITI AL SCREE N antibody screen NEGATI VE negati ve Not Available [facility] ([facility]) [address], [place], [address], 02/26/2024 10:14:59 02/20/2002/21/2024 PREGN ANGEL, INITI AL SCREE N HIV Ab/P24 Ag screen NON REACTI VE nonrea ctive HIV-1 /HIV- 2 antib odies and HIV-1 p24 antig en were NOT detec arun. There is no labor atory evide nce of HIV infec tion. HIV Negat yulia Not Available [facility] ([facility]) [address], [place], [address], 02/26/2024 10:14:59 02/20/2002/21/2024 PREGN ANGEL, INITI AL SCREE N WBC 9.6 x10e3 /uL 3.4-10 .8 Not Available [facility] ([facility]) [address] [place], [address], 02/26/2024 10:14:59 02/20/2002/21/2024 PREGN ANGEL, INITI AL SCREE N RBC 3.34 x10e6 /uL 3.77-5 .28 below low normal Not Available [facility] ([facility]) [address] [place], [address], 02/26/2024 10:14:59 02/20/2002/21/2024 PREGN ANGEL, INITI AL SCREE N hemoglobin 10.2 g/dL 11.1-1 5.9 below low normal Not Available [facility] ([facility]) [address] [place], [address], 02/26/2024 10:14:59 02/20/2002/21/2024 PREGN ANGEL, INITI AL SCREE N hematocrit 31.2 % 34.0-4 6.6 below low normal Not Available [facility] ([facility]) [address] [place], [address], 02/26/2024 10:14:59 02/20/2002/21/2024 PREGN ANGEL, INITI AL SCREE N MCV 93 fL 79-97 Not Available [facility] ([facility]) [address] [place], [address], 02/26/2024 10:14:59 02/20/2002/21/2024 PREGN ANGEL, INITI AL SCREE N MCH 30.5 pg 26.6-3 3.0 Not Available [facility] ([facility]) [address] [place], [address], 02/26/2024 10:14:59 02/20/2002/21/2024 PREGN ANGEL, INITI AL SCREE N MCHC 32.7 g/dL 31.5-3 5.7 Not Available [facility] ([facility]) [address] [place], [address], 02/26/2024 10:14:59 02/20/2002/21/2024 PREGN ANGEL, INITI AL SCREE N RDW 12.5 % 11.7-1 5.4 Not Available [facility] ([facility]) [address] [place], [address], 02/26/2024 10:14:59 02/20/2002/21/2024 PREGN ANGEL, INITI AL SCREE N platelets 207 x10e3 /uL 150-45 0 Not Available [facility] ([facility]) [address], [place], [address], 02/26/2024 10:14:59 02/20/2002/21/2024 PREGN ANGEL, INITI AL SCREE N neutrophils 72 % notest ab. Not Available [facility] ([facility]) [address], [place], [address], 02/26/2024 10:14:59 02/20/2002/21/2024 PREGN ANGEL, INITI AL SCREE N lymphs 21 % notest ab. Not Available [facility] ([facility]) [address], [place], [address], 02/26/2024 10:14:59 02/20/2002/21/2024 PREGN ANGEL, INITI AL SCREE N monocytes 4 % notest ab. Not Available [facility] ([facility]) [address], [place], [address], 02/26/2024 10:14:59 02/20/2002/21/2024 PREGN ANGEL, INITI AL SCREE N eos 2 % notest ab. Not Available [facility] ([facility]) [address], [place], [address], 02/26/2024 10:14:59 02/20/2002/21/2024 PREGN ANGEL, INITI AL SCREE N basos 0 % notest ab. Not Available [facility] ([facility]) [address], [place], [address], 02/26/2024 10:14:59 02/20/20 24 02/21/2024 PREGN ANGEL, INITI AL SCREE N neutrophils (absolute) 7.0 x10e3 /uL 1.4-7. 0 Not Available [facility] ([facility]) [address] [place], [address], 02/26/2024 10:14:59 02/20/2002/21/2024 PREGN ANGEL, INITI AL SCREE N lymphs (absolute) 2.0 x10e3 /uL 0.7-3. 1 Not Available [facility] ([facility]) [address], [place], [address], 02/26/2024 10:14:59 02/20/2002/21/2024 PREGN ANGEL, INITI AL SCREE N monocytes(ab solute) 0.4 x10e3 /uL 0.1-0. 9 Not Available [facility] ([facility]) [address], [place], [address], 02/26/2024 10:14:59 02/20/2002/21/2024 PREGN AGNEL, INITI AL SCREE N eos (absolute) 0.2 x10e3 /uL 0.0-0. 4 Not Available [facility] ([facility]) [address] [place], [address], 02/26/2024 10:14:59 02/20/2002/21/2024 PREGN ANGEL, INITI AL SCREE N baso (absolute) 0.0 x10e3 /uL 0.0-0. 2 Not Available [facility] ([facility]) [address] [place], [address], 02/26/2024 10:14:59 02/20/2002/21/2024 PREGN ANGEL, INITI AL SCREE N immature granulocytes 1 % notest ab. Not Available [facility] ([facility]) [address] [place], [address], 02/26/2024 10:14:59 02/20/2002/21/2024 PREGN ANGEL, INITI AL SCREE N immature grans (abs) 0.1 x10e3 /uL 0.0-0. 1 Not Available [facility] ([facility]) [address], [place], [address], 02/26/2024 10:14:59 02/20/2002/21/2024 PREGN ANGEL, INITI AL SCREE N specific gravity 1.010 1.005- 1.030 Not Available [facility] ([facility]) [address], [place], [address], 02/26/2024 10:14:59 02/20/2002/21/2024 PREGN ANGEL, INITI AL SCREE N pH 8.0 5.0-7. 5 above high normal Not Available [facility] ([facility]) [address], [place], [address], 02/26/2024 10:14:59 02/20/2002/21/2024 PREGN ANGEL, INITI AL SCREE N urine-color YELLOW yellow Not Available [facility] ([facility]) [address], [place], [address], 02/26/2024 10:14:59 02/20/2002/21/2024 PREGN ANGEL, INITI AL SCREE N appearance CLEAR clear Not Available [facility] ([facility]) [address], [place], [address], 02/26/2024 10:14:59 02/20/2002/21/2024 PREGN ANGEL, INITI AL SCREE N WBC esterase NEGATI VE negati ve Not Available [facility] ([facility]) [address] [place], [address], 02/26/2024 10:14:59 02/20/2002/21/2024 PREGN ANGEL, INITI AL SCREE N protein NEGATI VE negati ve/tra ce Not Available [facility] ([facility]) [address] [place], [address], 02/26/2024 10:14:59 02/20/2002/21/2024 PREGN ANGEL, INITI AL SCREE N glucose NEGATI VE negati ve Not Available [facility] ([facility]) [address] [place], [address], 02/26/2024 10:14:59 02/20/2002/21/2024 PREGN ANGEL, INITI AL SCREE N ketones NEGATI VE negati ve Not Available [facility] ([facility]) [address] [place], [address], 02/26/2024 10:14:59 02/20/2002/21/2024 PREGN ANGEL, INITI AL SCREE N occult blood NEGATI VE negati ve Not Available [facility] ([facility]) [address] [place] [address], [address], 02/26/2024 10:14:59 02/20/2002/21/2024 PREGN ANGEL, INITI AL SCREE N bilirubin NEGATI VE negati ve Not Available [facility] ([facility]) [address] [place], [address], 02/26/2024 10:14:59 02/20/2002/21/2024 PREGN ANGEL, INITI AL SCREE N urobilinogen ,semi-qn 0.2 mg/dL 0.2-1. 0 Not Available [facility] ([facility]) [address] [place], [address], 02/26/2024 10:14:59 02/20/2002/21/2024 PREGN ANGEL, INITI AL SCREE N nitrite, urine NEGATI VE negati ve Not Available [facility] ([facility]) [address] [place], [address], 02/26/2024 10:14:59 02/20/2002/21/2024 PREGN ANGEL, INITI AL SCREE N microscopic examination COMMEN T Micro scopi c follo ws if indic ated. Not Available [facility] ([facility]) [address], [place], [address], 02/26/2024 10:14:59 02/20/2002/21/2024 PREGN ANGEL, INITI AL SCREE N microscopic examination SEE BELOW: Micro scopi c was indic ated and was perfo rmed. Not Available [facility] ([facility]) [address], [place], [address], 02/26/2024 10:14:59 02/20/2002/22/2024 PREGN ANGEL, INITI AL SCREE N urine culture,pren atal, w/gbs FINAL REPORT Not Available [facility] ([facility]) [address], [place], [address], 02/26/2024 10:14:59 02/20/2002/23/2024 PREGN ANGEL, INITI AL SCREE N chlamydia trachomatis, [place] NEGATI VE negati ve Not Available [facility] ([facility]) [address], [place], [address], 02/26/2024 10:14:59 02/20/2002/23/2024 PREGN ANGEL, INITI AL SCREE N neisseria gonorrhoeae, [place] NEGATI VE negati ve Not Available [facility] ([facility]) [address], [place], [address], 02/26/2024 10:14:59 02/20/2002/21/2024 MICRO SCOPI C EXAMI NATIO N WBC None seen /hpf 0-5 Not Available [facility] ([facility]) [address] [place], [address], 02/26/2024 10:15:02 02/20/2002/21/2024 MICRO SCOPI C EXAMI NATIO N RBC None seen /hpf 0-2 Not Available [facility] ([facility]) [address], [place], [address], 02/26/2024 10:15:02 02/20/2002/21/2024 MICRO SCOPI C EXAMI NATIO N epithelial cells (non renal) 0-10 /hpf 0-10 Not Available [facility] ([facility]) [address], [place], [address], 02/26/2024 10:15:02 02/20/2002/21/2024 MICRO SCOPI C EXAMI NATIO N casts None seen /lpf nonese en Not Available [facility] ([facility]) [address], [place], [address], 02/26/2024 10:15:02 02/20/2002/21/2024 MICRO SCOPI C EXAMI NATIO N bacteria None seen nonese en/few Not Available [facility] ([facility]) [address], [place], [address], 02/26/2024 10:15:02 02/20/2002/26/2024 DRUG SCREE N 17 W/CON F, UR creatinine 57 mg/dL REFER ENCE RANGE : Ref Range >=20 Not Available [facility] ([facility]) [address], [place], [address], 02/26/2024 10:15:03 02/20/2002/26/2024 DRUG SCREE N 17 W/CON F, UR ethanol biomarkers ia NEGATI VE NG/mL cutoff :500 Not Available [facility] ([facility]) [address], [place], [address], 02/26/2024 10:15:03 02/20/2002/26/2024 DRUG SCREE N 17 W/CON F, UR amphetamines ia NEGATI VE NG/mL cutoff :300 Not Available [facility] ([facility]) [address] [place], [address], 02/26/2024 10:15:03 02/20/2002/26/2024 DRUG SCREE N 17 W/CON F, UR barbiturates ia NEGATI VE NG/mL cutoff :200 Not Available [facility] ([facility]) [address] [place], [address], 02/26/2024 10:15:03 02/20/2002/26/2024 DRUG SCREE N 17 W/CON F, UR benzodiazepi [place] ia NEGATI VE NG/mL cutoff :50 Not Available [facility] ([facility]) [address] [place], [address], 02/26/2024 10:15:03 02/20/2002/26/2024 DRUG SCREE N 17 W/CON F, UR cocaine metabolite ia NEGATI VE NG/mL cutoff :150 Not Available [facility] ([facility]) [address] [place], [address], 02/26/2024 10:15:03 02/20/2002/26/2024 DRUG SCREE N 17 W/CON F, UR phencyclidin e ia NEGATI VE NG/mL cutoff :25 Not Available [facility] ([facility]) [address] [place], [address], 02/26/2024 10:15:03 02/20/2002/26/2024 DRUG SCREE N 17 W/CON F, UR cannabinoids ia COMMEN T NG/mL cutoff :20 Furth er testi ng indic ated Not Available [facility] ([facility]) [address] [place], [address], 02/26/2024 10:15:03 02/20/2002/26/2024 DRUG SCREE N 17 W/CON F, UR 6-acetylmorp emelia ia NEGATI VE NG/mL cutoff :10 Not Available [facility] ([facility]) [address] [place], [address], 02/26/2024 10:15:03 02/20/20 24 02/26/2024 DRUG SCREE N 17 W/CON F, UR opiate class ia NEGATI VE NG/mL cutoff :100 Not Available [facility] ([facility]) [address] [place], [address], 02/26/2024 10:15:03 02/20/2002/26/2024 DRUG SCREE N 17 W/CON F, UR oxycodone class ia NEGATI VE NG/mL cutoff :100 Not Available [facility] ([facility]) [address] [place], [address], 02/26/2024 10:15:03 02/20/2002/26/2024 DRUG SCREE N 17 W/CON F, UR methadone ia NEGATI VE NG/mL cutoff :100 Not Available [facility] ([facility]) [address] [place], [address], 02/26/2024 10:15:03 02/20/2002/26/2024 DRUG SCREE N 17 W/CON F, UR fentanyl ia NEGATI VE NG/mL cutoff :2.0 Not Available [facility] ([facility]) [address] [place], [address], 02/26/2024 10:15:03 02/20/2002/26/2024 DRUG SCREE N 17 W/CON F, UR buprenorphin e ia NEGATI VE NG/mL cutoff :5.0 Not Available [facility] ([facility]) [address] [place], [address], 02/26/2024 10:15:03 02/20/2002/26/2024 DRUG SCREE N 17 W/CON F, UR tramadol ia NEGATI VE NG/mL cutoff :200 Not Available [facility] ([facility]) [address] [place], [address], 02/26/2024 10:15:03 02/20/2002/26/2024 DRUG SCREE N 17 W/CON F, UR propoxyphene ia NEGATI VE NG/mL cutoff :300 Not Available [facility] ([facility]) [address] [place], [address], 02/26/2024 10:15:03 02/20/2002/26/2024 DRUG SCREE N 17 W/CON F, UR tapentadol ia NEGATI VE NG/mL cutoff :200 Not Available [facility] ([facility]) [address] [place], [address], 02/26/2024 10:15:03 02/20/2002/26/2024 DRUG SCREE N 17 W/CON F, UR nicotine metabolite ++POSI TIVE++ abnormal Not Available [facility] ([facility]) [address] [place], [address], 02/26/2024 10:15:03 02/20/2002/26/2024 DRUG SCREE N 17 W/CON F, UR cotinine >200 NG/mL Not Available [facility] ([facility]) [address] [place], [address], 02/26/2024 10:15:03 02/20/2002/26/2024 BRITTANY MURILLO DS, MS, UR RFX cannabinoids ++POSI TIVE++ abnormal Not Available [facility] ([facility]) [address] [place], [address], 02/26/2024 10:15:04 02/20/2002/26/2024 BRITTANY MURILLO DS, MS, UR RFX carboxy-THC 418 NG/mg _crea t This test is not inten ded to disti nguis h betwe en the metab olite s of delta -9-te trahy droca nnabi nol, the predo minan t form of THC in most herba l or marij uana- based produ cts, and delta -8-te trahy droca nnabi nol, a psych oacti ve compo und gener ally synth esize d from other canna binoi ds. Not Available [facility] ([facility]) [address], [place], [address], 02/26/2024 10:15:04 02/20/20 24 02/22/2024 RESUL T result 1 Commen t Mixed uroge nital shagufta 10,00 0-25, 000 colon y formi ng units per mL Not Available [facility] ([facility]) [address], [place], [address], 02/26/2024 10:15:05 02/20/2002/21/2024 VARIC MIROSLAVA- ZOSTE R V AB, IGG varicella zoster IgG NON REACTI VE nonrea ctive Ple ase note refer ence inter shante montiel e A React yulia resul t is consi dered evide nce of immun ity to VZV. React yulia indic ates that VZV IgG was detec arun consi stent with previ ous infec tion and/o r vacci natio n. A Non React yulia resul t indic ates that VZV IgG was not detec arun sugge sting that immun ity has not been acqui red. Not Available [facility] ([facility]) [address], [place], [address], 02/26/2024 10:15:06 02/20/2002/26/2024 MATER NIT21 PLUS CORE gestation SINGLE TON Not Available [facility] ([facility]) [address], [place], [address], 02/26/2024 17:10:33 02/20/2002/26/2024 MATER NIT21 PLUS CORE fraction 20% Not Available [facility] ([facility]) [address], [place], [address], 02/26/2024 17:10:33 02/20/2002/26/2024 MATER NIT21 PLUS CORE gestational age > or = 9W: YES Not Available [facility] ([facility]) [address] [place], [address], 02/26/2024 17:10:33 02/20/20 24 02/26/2024 MATER NIT21 PLUS CORE test result NEGATI VE Not Available [facility] ([facility]) [address] [place], [address], 02/26/2024 17:10:33 02/20/20 24 02/26/2024 MATER NIT21 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 Clini francis corre latio n is buster cueto. Not Available [facility] ([facility]) [address] [place], [address], 02/26/2024 17:10:33 02/20/20 24 02/26/2024 MATER NIT21 PLUS CORE approved by FEI ocampo MD, PhD, [facility] tor, [place] [facility] Labor atori es Not Available [facility] ([facility]) [address] [place], [address], 02/26/2024 17:10:33 02/20/20 24 02/26/2024 MATER NIT21 PLUS CORE trisomy 21 (down syndrome) NEGATI VE Not Available [facility] ([facility]) [address] [place], [address], 02/26/2024 17:10:33 02/20/20 24 02/26/2024 MATER NIT21 PLUS CORE trisomy 18 (calderon syndrome) NEGATI VE Not Available [facility] ([facility]) [address] [place], [address], 02/26/2024 17:10:33 02/20/20 24 02/26/2024 MATER NIT21 PLUS CORE trisomy 13 (patau syndrome) NEGATI VE Not Available [facility] ([facility]) [address], [place], [address], 02/26/2024 17:10:33 02/20/20 24 02/26/2024 MATER NIT21 PLUS CORE sex COMMEN T Consi stent with Male Not Available [facility] ([facility]) [address], [place], [address], 02/26/2024 17:10:33 02/20/20 24 02/26/2024 MATER NIT21 PLUS CORE negative predictive value NOTE The Negat yulia Predi ctive Value (NPV) for triso my 21, 18, and 13 is great er than 99%. The NPV for SCA and ESS canno t be calcu lated as SCA and ESS are only repor arun when an abnor malit y is detec arun. Not Available [facility] ([facility]) [address], [place], [address], 02/26/2024 17:10:33 02/20/20 24 02/26/2024 MATER NIT21 PLUS CORE positive predictive value N/A Not Available [facility] ([facility]) [address], [place], [address], 02/26/2024 17:10:33 02/20/20 24 02/26/2024 MATER NIT21 PLUS CORE about the test COMMEN T The Mater niT(R ) 21 PLUS labor atory -deve loped test (LDT) yousuf zes circu latin g cell- free DNA from a mater nal blood sampl e. This test is used for scree deonna purpo ses and not diagn ostic . Clini francis corre latio n is recom laisha d. Valid ation data on twin pregn ancie s is limit ed and the abili ty of this test to detec t aneup loidy in highe r multi ple gesta tions has not yet been valid ated. Not Available [facility] ([facility]) [address], [place], [address], 02/26/2024 17:10:33 02/20/20 24 02/26/2024 MATER NIT21 PLUS CORE test method COMMEN T See Notes Circu latin g cell- free DNA was purif ied from the plasm a compo nent of mater nal blood . The extra cted DNA was then conve rted into a genom ic DNA birgit ry for aneup loidy yousuf sis of chrom osome s 21, 18, and 13 via next gener ation seque ncing .[1] Optio nal findi ngs based on the test order inclu de sex chrom osome aneup loidy (SCA) [2], and enhan diogenes seque ncing serie s (ESS) [3], which will only be repor arun on as an addit ional findi ng when an abnor malit y is detec arun. SCA testi ng inclu tiki infor matio n on X and Y repre senta tion, while ESS testi ng inclu tiki delet ions in selec arun regio ns (22q, 15q, 11q, 8q, 5p, 4p, 1p) and triso my of chrom osome s 16 and 22. Not Available [facility] ([facility]) [address], [place], [address], 02/26/2024 17:10:33 02/20/20 24 02/26/2024 MATER NIT21 PLUS CORE performance COMMEN T The perfo rmanc e tru cteri stics of the Mater niT(R ) 21 PLUS labor atory -deve loped test (LDT) have been deter mined in a clini francis valid ation study with pregn ant women at incre ased risk for chrom osoma l aneup loidy .[1-4 ] Not Available [facility] ([facility]) [address], [place], [address], 02/26/2024 17:10:33 02/20/20 24 02/26/2024 MATER NIT21 PLUS CORE performance characterist ics NOTE ----- ----- ----- ----- ----- ----- ----- ----- ----- ----- ----- ---- ! Sex ! Marcin chambers: 99.4% ! !---- ----- ----- ----- ----- ----- ----- ----- ----- ----- ----- ---! ! Monica n (jolene washington syndr ome) ! Est. Sens# ! Est. Spec ! !---- ----- ----- ----- ----- ----- ----- ----- ----- ----- ----- ---! ! Julissa my 21 (Down Syndr ome) ! 99.1% ! 99.9% ! !---- ----- ----- ----- ----- ----- ----- ----- ----- ----- ----- ---! ! Julissa my 18 (Jeffrey hillman Syndr ome) ! >99.9 % ! 99.6% ! !---- ----- ----- ----- ----- ----- ----- ----- ----- ----- ----- ---! ! Julissa my 13 (Patmikal u Syndr ome) ! 91.7% ! 99.7% ! !---- ----- ----- ----- ----- ----- ----- ----- ----- ----- ----- ---! ! Sex Chrom jerod stafford es## ! 96.2% ! 99.7% ! !---- ----- ----- ----- ----- ----- ----- ----- ----- ----- ----- ---! * As repor arun in ISCA datab ase nstd3 7 [http [email or web address] rola.nc [email or web address] .gov/ dbvar /stud ies/n std37 / ] # Estim ated Sensi tivit y. Sensi tivit y estim ated acros s the obser yusuf size distr ibuti on of each syndr ome [per ISCA datab ase nstd3 7] and acros s the range of fract ions obser yusuf in routi ne clini francis NIPT. Actua l sensi tivit y can also be influ enced by other facto rs such as the size of the event , total seque nce count s, ampli ficat ion bias, or seque nce bias. ## Singl eton gesta tion only. Not Available [facility] ([facility]) [address], [place], [address], 02/26/2024 17:10:33 02/20/20 24 02/26/2024 MATER NIT21 PLUS CORE limitations of the test COMMEN T While the resul ts of these tests are highl y relia ble, disco rdant resul ts, inclu ding inacc urate sex predi ction , may occur due to place ntal, mater nal, or mosai cism or neopl asm; vanis rufino twin; prior mater nal organ trans plant ; or other cause s. These tests are scree deonna tests and not diagn ostic ; they do not repla ce the accur acy and preci pravin of prena gary diagn osis with [facility] or amnio cente sis. A patie nt with a posit yulia test resul t shoul d be refer red for [facility] coun[facility] eling and offer ed invas yulia prena gary diagn osis for confi rmati on of test resul ts.[5 ] The resul ts of this testi ng, inclu ding the benef its and limit ation s, shoul d be discu ssed with a quali fied healt hcare provi dina. Pregn angel manag ement decis ions, inclu ding termi natio n of the pregn angel, shoul d not be based on the resul ts of these tests alone . The healt hcare provi dina is respo nsibl e for the use of this infor matio n in the manag ement of their patie nt. Sex chrom osoma l aneup loidi es are not repor table for known multi ple gesta tions . A negat yulia resul t does not ensur e an unaff ected pregn angel nor does it exclu de the possi bilit y of other chrom osoma l abnor malit ies or defec ts which are not a part of these tests . An uninf ormat yulia resul t may be repor arun, the cause s of which may inclu de, but are not limit ed to, insuf ficie nt seque ncing cover age, noise or artif acts in the regio n, ampli ficat ion or seque ncing bias, or insuf ficie nt fract ion. These tests are not inten ded to ident puja pregn ancie s at risk for neura l tube defec ts or ventr al wall defec ts. Testi ng for whole chrom osome abnor malit ies (incl uding sex chrom osome s) and for subch romos omal abnor malit ies could lead to the poten tial disco very of both and mater nal genom ic abnor malit ies that could have major , minor , or no, clini francis signi fican ce. Evalu ating the signi fican ce of a posit yulia or a non-r eport able resul t may invol ve both invas yulia testi ng and addit ional studi es on the mothe r. Such inves tigat ions may lead to a diagn osis of mater nal chrom osoma l or subch romos omal abnor malit ies, which on occas ion may be assoc iated with benig n or malig nant mater nal neopl asms. These tests may not accur ately ident puja tripl oidy, alfa diogenes rearr angem ents, or the preci se locat ion of subch romos omal dupli catio ns or delet ions; these may be detec arun by prena gary diagn osis with [facility] or amnio cente sis. The abili ty to repor t resul ts may be impac arun by mater nal BMI, mater nal weigh t, mater nal syste martin lupus eryth emato linda (SLE) and/o r by certa in pharm aceut ical agent s such as low molec ular weigh t hepar in (for examp le: Loven ox(R) , Xapar in(R) , Clexa ne(R) and Fragm in(R) ). Not Available [facility] ([facility]) [address], [place], [address], 02/26/2024 17:10:33 02/20/2002/26/2024 MATER NIT21 PLUS CORE note COMMEN T See Notes [employer] is a subsi diary of Labor atory Corpo ratio n of Judith mott [employer] n[employer], using the brand [employer]. This test was devel oped and its perfo rmanc e tru cteri stics deter mined by [employer]. It has not been clear ed or appro yusuf by the Food and Drug Admin istra tion. This labor atory is certi fied under the Clini francis Labor atory Impro vemen t Amend ments (CLIA ) as quali fied to perfo rm high compl exity clini francis labor atory testi ng and accre dited by the Chemo yanes of Ameri can Patho logis ts (CAP) . If there is futur e clini francis need for addin g Mater niT GENOM E testi ng, this speci men will be avail able until term. [facility] sampl es will not be retai tarsha beyon d 60 days. [facility] patie nts will have to send a new sampl e for re-se quenc ing ([facility] Test Code: 73841 4). Not Available [facility] ([facility]) [address], [place], [address], 02/26/2024 17:10:33 02/20/2002/26/2024 MATER NIT21 PLUS CORE references COMMEN T 1. Crystal YANES, et al. [facility]. 2012; 14(3) :296- 305. 2. Sarah GAGE, et al. Prena t Diag. 2013; 33(6) :591- 597. 3. Camacho C, et al. Clin Chem. 2015 Apr;6 1(4): 608-6 16. 4. Crystal YANES, et al. [facility]. 2011; 13(11 ):913 -920. 5. ACOG/ SMFM Pract ice Bulle tin No. 226, Feb 2020. Not Available [facility] ([facility]) [address], [place], [address], 02/26/2024 17:10:33 02/20/20 24 02/26/2024 MATER NIT21 PLUS CORE pdf . Not Available [facility] ([facility]) [address], [place], [address], 02/26/2024 17:10:33 03/11/20 24 03/11/2024 urina lysis , dipst ick Leukocytes Small Not Available In-Offi ce Order Internal Use Only DO Not Attach Compendium DO Not Attach Compendium, Do Not Delete/merge, 03/11/2024 14:58:52 03/11/2003/11/2024 urina lysis , dipst ick Nitrite negati ve Not Available In-Office Order Internal Use Only DO Not Attach Compendium DO Not Attach Compendium, Do Not Delete/merge, 03/11/2024 14:58:52 03/11/2003/11/2024 urina lysis , dipst ick Urobilinogen .2 Not Available In-Of fice Order Internal Use Only DO Not Attach Compendium DO Not Attach Compendium, Do Not Delete/merge, 03/11/2024 14:58:52 03/11/2003/11/2024 urina lysis , dipst ick Protein 30 Not Available In-Office Order Internal Use Only DO Not Attach Compendium DO Not Attach Compendium, Do Not Delete/merge, 03/11/2024 14:58:52 03/11/2003/11/2024 urina lysis , dipst ick pH 6.5 Not Available In-Office Order Internal Use Only DO Not Attach Compendium DO Not Attach Compendium, Do Not Delete/merge, 03/11/2024 14:58:52 03/11/2003/11/2024 urina lysis , dipst ick Blood Non-He molyze d: Trace Not Available In-Office Order Internal Use Only DO Not Attach Compendium DO Not Attach Compendium, Do Not Delete/merge, 03/11/2024 14:58:52 03/11/2003/11/2024 urina lysis , dipst ick Specific Oriska 1.025 Not Available In-Off ice Order Internal Use Only DO Not Attach Compendium DO Not Attach Compendium, Do Not Delete/merge, 03/11/2024 14:58:52 03/11/2003/11/2024 urina lysis , dipst ick Ketone Trace Not Available In-Office Order Internal Use Only DO Not Attach Compendium DO Not Attach Compendium, Do Not Delete/merge, 03/11/2024 14:58:52 03/11/2003/11/2024 urina lysis , dipst ick Bilirubin Negati ve Not Available In-Office Order Internal Use Only DO Not Attach Compendium DO Not Attach Compendium, Do Not Delete/merge, 03/11/2024 14:58:52 03/11/2003/11/2024 urina lysis , dipst ick Glucose Negati ve Not Available In-Office Order Internal Use Only DO Not Attach Compendium DO Not Attach Compendium, Do Not Delete/merge, 03/11/2024 14:58:52 03/11/2003/11/2024 urina lysis , dipst ick Appearance Slight ly Cloudy Not Available In-Office Order Internal Use Only DO Not Attach Compendium DO Not Attach Compendium, Do Not Delete/merge, 03/11/2024 14:58:52 03/11/2003/11/2024 urina lysis , dipst ick Color Dark Yellow Not Available In-Office Order Internal Use Only DO Not Attach Compendium DO Not Attach Compendium, Do Not Delete/merge, 03/11/2024 14:58:52 05/04/20 24 05/04/2024 cultu re, urine urine culture negati ve Less than 100,0 00 colon ies/m L (clin icall y insig nific ant growt h based on curre nt clini francis [facility]) Not Available [address] [place], [address], 05/06/2024 08:52:45 05/04/20 24 05/04/2024 cultu re, urine RPR non-re active normal Not Available [address] [place], [address], 05/06/2024 08:52:45 05/04/20 24 05/04/2024 RPR (rapi d plasm a reagi n), quant itati ve, serum urine culture negati ve Less than 100,0 00 colon ies/m L (clin icall y insig nific ant growt h based on curre nt clini francis [facility]) Not Available [address] [place], [address], 05/07/2024 17:02:50 05/04/20 24 05/04/2024 RPR (rapi d plasm a reagi n), quant itati ve, serum RPR non-re active normal Not Available [address] [place], [address], 05/07/2024 17:02:50 06/22/19 25 06/22/2024 patho logy, place nta placenta pathology see commen t - Place ntal weigh t appro priat e for gesta jaimie l age (~5th perce ntile ) - 3VC, negat yulia for funis itis - membr anes negat yulia for chori oamni oniti s - 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 Not Available [address] [place], [address], 06/25/2024 14:46:41 07/06/19 25 07/06/2024 urina lysis , dipst ick Leukocytes Negati ve Not Available In-Office Order Internal Use Only DO Not Attach Compendium DO Not Attach Compendium, Do Not Delete/merge, [facility] 07/06/2024 10:08:01 07/06/19 25 07/06/2024 urina lysis , dipst ick Nitrite negati ve Not Available In-Office Order Internal Use Only DO Not Attach Compendium DO Not Attach Compendium, Do Not Delete/merge, [facility] 07/06/2024 10:08:01 07/06/19 25 07/06/2024 urina lysis , dipst ick Urobilinogen .2 Not Available In-Of fice Order Internal Use Only DO Not Attach Compendium DO Not Attach Compendium, Do Not Delete/merge, [facility] 07/06/2024 10:08:01 07/06/19 25 07/06/2024 urina lysis , dipst ick Protein Negati ve Not Available In-Office Order Internal Use Only DO Not Attach Compendium DO Not Attach Compendium, Do Not Delete/merge, [facility], [facility] 07/06/2024 10:08:01 07/06/19 25 07/06/2024 urina lysis , dipst ick pH 7.0 Not Available In-Office Order Internal Use Only DO Not Attach Compendium DO Not Attach Compendium, Do Not Delete/merge, [facility] 07/06/2024 10:08:01 07/06/19 25 07/06/2024 urina lysis , dipst ick Blood Modera te Not Available In-Office Order Internal Use Only DO Not Attach Compendium DO Not Attach Compendium, Do Not Delete/merge, [facility] 07/06/2024 10:08:01 07/06/19 25 07/06/2024 urina lysis , dipst ick Specific Oriska 1.020 Not Available In-Off ice Order Internal Use Only DO Not Attach Compendium DO Not Attach Compendium, Do Not Delete/merge, [facility] 07/06/2024 10:08:01 07/06/19 25 07/06/2024 urina lysis , dipst ick Ketone Negati ve Not Available In-Office Order Internal Use Only DO Not Attach Compendium DO Not Attach Compendium, Do Not Delete/merge, [id number] 07/06/2024 10:08:01 07/06/19 25 07/06/2024 urina lysis , dipst ick Bilirubin Negati ve Not Available In-Office Order Internal Use Only DO Not Attach Compendium DO Not Attach Compendium, Do Not Delete/merge, [id number] 07/06/2024 10:08:01 07/06/19 25 07/06/2024 urina lysis , dipst ick Glucose Negati ve Not Available In-Office Order Internal Use Only DO Not Attach Compendium DO Not Attach Compendium, Do Not Delete/merge, [id number] 07/06/2024 10:08:01 01/21/20 24 01/21/2024 US, obste tric, mater nal evalu ation + anato my No observ [facility]ion [facility] ed. [facility] [address], [place], [address], 05/07/2024 17:14:19 05/04/20 24 05/04/2024 US, obste tric, mater nal evalu ation + anato my No observ ation record ed. [facility] [address] [place], [address], 05/07/2024 17:15:27 Result Notes None recorded. Problems Name Problem SNOMED Code Status Onset Date Resolution Date Notes Provider Name and Address Organization Details Recorded Time Bipolar disorder 93403631 Active 2020 KELLE LEDESMA MD Attn: Accounting ,[address] [place], [address] , [place] [facility] 1 21:06:09 Infectio n of tooth 337324371 Active 2022 Romi Cazares LPN [place], [place] [facility] 3 16:26:08 Pregnanc y 93117404 Completed 202204/30/2023 Heike Vega [place], [place] [facility] 5 10:05:25 Substanc e abuse 15242999 Completed 2022 [place] Nida ite [place] [facility] 3 13:14:16 Substanc e abuse 28594333 Active 2022 Juana Hebbgretchenhwa ite [place] [facility] 3 13:14:17 Varicell a non-immu ne 924056076 Active 2023 will need PP Varicell a vaccine KELLE LEDESMA MD Attn: Accounting ,[address] [facility], [place], [address] , [place] - [facility] 4 18:18:35 Varicell a non-immu ne 419206855 Completed 2022 Juana Hetrentonwa ite [place] [facility] 13:14:16 Pregnanc y 19604402 Completed 202307/06/2024 Heike Vega [place] [facility] 10:05:25 Late entry into care 036834787 Completed 2023 KELLE LEDESMA MD Attn: Accounting ,[address] [facility], [place], [address] , [place] [facility] 4 16:42:17 Harmful pattern of use of cannabis 79303425 Completed 2023 Recommen ded quitting KELLE LEDESMA MD Attn: Accounting ,[address] [facility], [place], [address] , [place] [facility] 4 18:19:36 Harmful pattern of use of cannabis 96015168 Active 2023 Recommen ded quitting KELLE LEDESMA MD Attn: Accounting ,[address] [facility], [place], [address] , [place] [facility] 4 18:19:36 Nausea and vomiting in pregnanc y Completed 2023 Recommen ded B6 and Doxylami ne KELLE LEDESMA MD Attn: Accounting ,[address] [facility], [place], [address] , [place] [facility] 4 16:43:08 Tobacco smoking in mother complica ting pregnanc y 39549571639 4109 Completed 2023 KELLE LEDESMA MD Attn: Accounting ,[address] [place], [place], [address] [place] [address] , [place] [facility] 4 18:18:13 Tobacco smoking in mother complica ting pregnanc y 26914128218 4109 Active 2023 KELLE LEDESMA MD Attn: Accounting ,[address] [facility], [place], [place], [address] [place] [address] , [place] [facility] 4 18:18:13 Varicell a non-immu ne 636863750 Completed 2023 will need PP Varicell a vaccine KELLE LEDESMA MD Attn: Accounting ,[address] [facility], [place], [place], [address] [place] [address] , [place] [facility] 4 18:18:35 Anemia of pregnanc y 29195313 Completed 2023 Hgb 10.2, normocyt ic FeS recommen ded. KELLE LEDESMA MD Attn: Accounting ,[address] [place], [place], [address] [place] [address] , [place] [facility] 4 18:19:03 Asthma 428172362 Active 2024 LEROY MACHADO MD Attn: Accounting ,[address] [place], [place], [address] [place] [address] , [place] [facility] 5 10:31:25 Postpart um care Active 2024 LEROY MACHADO MD Attn: Accounting ,[address] [place], [address] , [place] [facility] 5 10:40:22 Problem Notes None recorded. Medical Equipment None Reported. Allergies Allergen ID Allergen Name Allergen Category Reaction Reaction Severity Criticality Documentation Date Start Date Code Code System Note Provider Name and Address Organization Details Recorded Time 521351 Phenergan medicatio n hives Not available Not available 03/16/2021 30862 8 RxNorm heada analy Fried MA null, [place] [facility] 12:46:15 Medications Name Sig Start Date Stop Date Status Note LastModified by Organization Details LastModified Time amoxicillin 500 mg capsule 09/06 completed Not Available Not Available Not Available Vitamin B-6 25 mg tablet TAKE 1 TABLET BY MOUTH DAILY IN THE MORNING FOR NAUSEA/VO MITING IN . active Not Available Not Available No t Available clindamycin HCl 300 mg capsule 12/22 completed Not Available Not Available Not Available cetirizine 10 mg tablet TAKE 1 TABLET BY MOUTH ONCE DAILY 12/22 completed Not Available Not Available Not Available hydrocodone 5 mg-acetamin ophen 325 mg tablet 12/22 completed Not Available Not Available Not Available prednisone 20 mg tablet 05/23 completed Not Available Not Available Not Available sulfamethox azole 800 mg-trimetho prim 160 mg tablet Take 1 tablet every 12 hours by oral route for 7 days. 09/06 completed Not Available Not Available Not Available famotidine 20 mg tablet TAKE 1 TABLET BY MOUTH ONCE DAILY 01/06 completed Not Available Not Available Not Available metoclopram donald 5 mg tablet 09/06 completed Not Available Not Available Not Available cephalexin 500 mg capsule Take 1 capsule every 6 hours by oral route as directed for 7 days. 12/22 completed Not Available Not Available Not Available ferrous sulfate 325 mg (65 mg iron) tablet Take 1 tablet every day by oral route for 30 days, for Anemia. 2023 active Not Available Not Available Not Avai lable buspirone 10 mg tablet Take 1 tablet twice a day by oral route for 30 days. 09/06 completed Not Available Not Available Not Available gabapentin 300 mg capsule Take 1 capsule every day by oral route at bedtime for 30 days. 2024 active Not Available Not Available Not Avai lable hydroxyzine HCl 25 mg tablet Take 1 tablet by mouth three times daily as needed 09/06 completed Not Available Not Available Not Available ibuprofen 600 mg tablet 09/06 completed Not Available Not Available Not Available albuterol sulfate HFA 90 mcg/actuati on aerosol inhaler Inhale 2 puffs every 4 hours by inhalatio n route as directed for 30 days, for asthma. 2024 active Not Available Not Available Not Avai lable ondansetron 4 mg disintegrat ing tablet 01/06 completed Not Available Not Available Not Available sertraline 50 mg tablet Take 1 tablet by mouth once daily 09/06 completed Not Available Not Available Not Available Unisom (doxylamine ) 25 mg tablet Take 1 tablet every day by oral route at bedtime for 30 days, for Nausea and vomiting in . 2023 active Not Available Not Available Not Avai lable medroxyprog esterone 150 mg/mL intramuscul ar suspension Inject 1 mL every 3 months by intramusc ular route for 90 days. 09/06 completed Not Available Not Available Not Available docusate sodium 100 mg tablet Take 1 tablet twice a day by oral route for 30 days, for Constipat ion. 2023 active Not Available Not Available Not Avai lable metoclopram donald 10 mg tablet 01/06 completed Not Available Not Available Not Available amoxicillin 875 mg-potassiu m clavulanate 125 mg tablet 05/23 completed Not Available Not Available Not Available Sprintec (28) 0.25 mg-0.035 mg tablet Take 1 tablet by mouth once daily 09/06 completed Not Available Not Available Not Available aripiprazol e 10 mg tablet Take 1 tablet every day by oral route for 30 days. 2024 active Not Available Not Available Not Avai lable aripiprazol e 5 mg tablet Take 1 tablet by mouth once daily 09/06 completed Not Available Not Available Not Available 28 mg iron-800 mcg tablet Take 1 tablet every day by oral route for 90 days, for . 2023 active Not Available Not Available Not Avai lable OneTouch Verio test strips USE 1 STRIP TO CHECK GLUCOSE ONCE DAILY 09/06 completed Not Available Not Available Not Available Classic 28 mg iron-800 mcg tablet TAKE 1 TABLET BY MOUTH DAILY. active Not Available Not Available No t Available OneTouch Verio Flex Meter 09/06 completed Not Available Not Available Not Available OneTouch Delica Plus Lancet 30 gauge 09/06 completed Not Available Not Available Not Available Vitals Date Recorded Body height Body mass index (BMI) Body weight Body temperature Respiratory rate Oxygen saturation Oxygen saturation in Arterial blood by Pulse oximetry Heart rate Systolic And Diastolic Provider Name and Address Organization Details Last Updated DateTime 2 157.48 cm 27 kg/m2 86097.2 7 g 98.2 [degF] 16 /min 99 % 99 % 90 /min 122/90 mm[Hg] Yokasta Fried MA [facility] 2 11:44:57 Date Recorded Body height Body mass index (BMI) Body weight Heart rate Oxygen saturation Oxygen saturation in Arterial blood by Pulse oximetry Systolic And Diastolic Provider Name and Address Organization Details Last Updated DateTime 5 157.48 cm 23.6 kg/m2 13829.4 2 g 88 /min 97 % 97 % 118/64 mm[Hg] Heike Vega MA [facility] 5 10:10:15 Date Recorded Body height Body mass index (BMI) Body weight Body temperature Respiratory rate Oxygen saturation Oxygen saturation in Arterial blood by Pulse oximetry Heart rate Systolic And Diastolic Provider Name and Address Organization Details Last Updated DateTime 3 157.48 cm 26.9 kg/m2 95806.6 33461 g 98.1 [degF] 18 /min 97 % 97 % 84 /min 110/70 mm[Hg] Romi Cazares LPN [facility] 3 16:22:13 Date Recorded Body mass index (BMI) Body height Provider Name and Address Organization Details Last Updated DateTime 12/23/2023 26.2 kg/m2 157.48 cm KELLE LEDESMA MD Attn: [facility],[address] [place], [address], [place] - [facility] 01/07/2024 16:41:59 Date Recorded Body weight Respiratory rate Heart rate Body temperature Systolic And Diastolic Provider Name and Address Organization Details Last Updated DateTime 4 41226.1 6 g 20 /min 102 /min 98.5 [degF] 112/72 mm[Hg] Julia Knott MA [facility] 4 16:17:38 Date Recorded Body height Body mass index (BMI) Body weight Provider Name and Address Organization Details Last Updated DateTime 03/11/2024 157.48 cm 26.6 kg/m2 47577.29 g Patricia rFost [facility] 03/11/2024 14:58:13 Social History Question Answer Notes LastModified by Organizat ion Details LastModified Time Tobacco Smoking Status Current Every Day Smoker DAHLIA [place], [place] - [facility] 03/16/2021 12:49:13 Do You Have An Advance Directive? No sebyrma Information not available 05/23/2021 Are You Blind Or Do You Have Difficulty Seeing? No Information not available 03/16/2021 What Is Your Level Of Caffeine Consumption? Heavy Information not available 03/16/2021 In The 14 Days Before Symptom Onset, Have You Had Close Contact With A Laboratory-confir med COVID-19 While That Case Was Ill? No Information not available 03/16/2021 In The 14 Days Before Symptom Onset, Have You Had Close Contact With A Person Who Is Under Investigation For COVID-19 While That Person Was Ill? No Information not available 03/16/2021 Have You Been To An Area Known To Be High Risk For COVID-19? No Information not available 03/16/2021 Are You Deaf Or Do You Have Serious Difficulty Hearing? No Information not available 03/16/2021 What Type Of Diet Are You Following? REGULAR Information not available 03/16/2021 What Was The Date Of Your Most Recent Tobacco Screening? 07/06/2024 Information not available 07/06/2024 How Many Children Do You Have? 2 Information not available 03/16/2021 What Is Your Current Pack Years? 10-19packyea rs Information not available 03/16/2021 What Is Your Relationship Status? Domestic Partner Engaged To FOB But Still Not Information not available 09/06/2022 Are You Sexually Active? Yes Information not available 09/06/2022 Do You Have Smoke And Carbon Monoxide Detectors In Your Home? Yes Information not available 09/06/2022 At What Age Did You Start Smoking Tobacco? 13 Information not available 03/16/2021 Are You Passively Exposed To Smoke? Yes Information no t available 09/06/2022 How Much Tobacco Do You Smoke? 1 PPD Information not available 03/16/2021 Has Tobacco Cessation Counseling Been Provided? Yes Information not available 09/06/2022 On What Date Was Tobacco Cessation Counseling Provided? 07/06/2024 Information not available 07/06/2024 How Many Years Have You Smoked Tobacco? 14 Information not available 09/06/2022 How Many Years Have You Used E-cigarettes Or Vape? 6 Information not available 09/06/2022 Sex: Female Functional Status Question Answer Note LastModified by Organizat ion Details LastModified Time Do you use any illicit or recreational drugs? Yes MJ apiercema Information not available 12/23/2023 Do you or have you ever used any other forms of tobacco or nicotine? Yes Information not available 09/06/2022 What is your level of alcohol consumption? None Information not available 03/16/2021 Do you or have you ever used smokeless tobacco? Never used smokeless tobacco Information not available 09/06/2022 Are you currently employed? No Information not available 03/16/2021 Are you able to care for yourself? Yes Information not available 03/16/2021 Do you or have you ever used e-cigarettes or vape? Former user of electronic cigarettes Information not available 07/06/2024 Mental Status None recorded. Family History Nothing Reported Notes:no connection to famil y Medical History Condition Response Coronary Artery Disease N Other N High Blood Pressure Y Atrial Fibrillation N Thyroid Problems N Kidney or Bladder Problems N GI Problems N Depression Y COPD N Blood Clots N Skin Problems N Eating Disorder N Anemia N Heart Attack ([place]) N Anxiety Disorder Y Diabetes N Muscle, Joint, or Bone Problems N Seizures/Epilepsy N Acid Reflux (GERD) Y Cancer N Stroke N Asthma N Allergies N ADHD Y Substance Abuse N High Cholesterol N Hepatitis N Liver Disease N Schizophrenia N Headaches N Heart Failure N Osteoporosis N Gynecological History Statement/Question Response Date of LMP 09/16/2022 On BCP's at Conception? N Menses Monthly N STIs/STDs Y Age at Menarche 11 Current Control Method None Age at First Child 21 LMP Definite Obstetrics History GPAL:G 6 P 4 0 2 4 Type Value Multiple Births 0 Full Term 4 Induced 0 Spontaneous 2 Premature 0 Living 4 Ectopics 0 Total 6 Immunizations Vaccine Type Date Status Note Provider Xavier ford and Address Organization Details Recorded Time COVID-19, mRNA, LNP-S, PF, 30 mcg/0.3 mL dose 2 completed KELLE LEDESMA MD Attn: [facility],[address] [place], [place], [address] [place] [address], [place] - [facility] 01/07/2024 17:08:27 COVID-19, mRNA, LNP-S, PF, 30 mcg/0.3 mL dose, phillip-sucrose 2 completed KELLE LEDESMA MD Attn: [facility] [place], [place], [address] [place] [address], [facility] - [facility] 01/07/2024 17:08:27 pneumococcal polysaccharide PPV23 0 completed KELLE LEDESMA MD Attn: [facility] [place], [place], [address] [place] [address], [place] - [facility] 01/07/2024 17:08:27 Tdap 0 completed KELLE LEDESMA MD Attn: [facility] [place], [place], [address] [place] [address], [place] - [facility] 01/07/2024 17:08:27 Past Encounters Encounter ID Performer Location Encounter Start Date Encounter Closed Date Diagnosis/Indication Diagnosis SNOMED-CT Code Diagnosis ICD10 Code Diagnosis Note [id number] MD Luis Miguel MALONYE [address] [facility] [address] [place] [address] 03/16/2021 11:57:58 03/17/2021 10:15:37 History of anemia 610918668 Z86.2 denies symptoms currently but was on iron in the past Bipolar disorder 4974753 4 F31.9 03/16/21 - PHQ9 20, GAD7 21, denies SI/HIHisto ry of bipolar disorder, will start Abilify 5mg and Zoloft 50mg, with PRN hydroxyzin e 25mg TID PRN for anxiety, worked on her beforenot interested in counsellin g at this timeRTC in 2-4 weeks for follow up Seasonal a llergic rhinitis 834102222 J30.2 Uses oral contraception 6007138 Z30.41 discussed control options, patient would like to start with OCP and transtion to [facility] ring in the future. [id number] MD Luis Miguel MALONEY [address] [facility] [place] [address] 03/30/2021 11:14:19 03/30/2021 22:40:01 Bipolar disorder 04112120 F31.9 03/16/21 - PHQ9 20, GAD7 21, denies SI/HIHisto ry of bipolar disorder,- will increase Abilify to 10mg, continue zoloft 50mg daily- stop hydroxyzin e, start buspar 10mg BID- Referral to psychiatry for assistance in med management , not interested in conselling at this time- RTC in 2-4 weeks for a phone visit. [id number] MD Luis Miguel MALONEY [address] [facility] [place] [address] 05/23/2021 11:38:41 06/01/2021 22:51:28 Syncope 204346658 R55 DDx includes vagal episode vs hypoglycem ia vs orthostati c hypotensio n vs other- in office orthostati c BP wnl- Will obtain some blood work- Provided education on warning signs to monitor- Low suspicion for seizure- Advised patient to continue to monitor and note some precipitat ing effects, consider tilt-table test in the future [id number] MD Luis Miguel MALONEY [address] [facility] [place] [address] 06/29/2021 11:18:51 06/30/2021 12:23:49 Cellulitis of skin 693470618 L03.90 induration on back concerning for cellulitis will treat with bactrim DS BID x7 daysDiscus sed return precaution s and warning signs to present to the ED, patient voiced understand ing Elevated blood-pressure reading without diagnosis of hypertension 065958629 R03.0 DBP 90, from pain, [facility] 350763553 Z30.9 Risks of hormonal control reviewed, menstrual bleeding or no bleeding, weight changes, and mood changes. Risks of bone loss with Depo Provera also reviewed. All questions answered. Pt understand s & accepts risks. Instructio ns/warning signs given. Safe sex counseling done.- in office UPT negative- Patient conselled on considerin g Nexplanon, will think about it and follow up Venereal d isease screening 423654468 Z11.3 STI testing done per patient's request [id number] RACHEL RON (CHEMICAL PLANT OPERATOR) [address] [place] [address] 09/06/2022 15:29:51 09/07/2022 15:38:10 Routine care 659310558 Z34.91 Acute urin anita tract infection 177179050 N39.0 [id number] MD Luis Miguel MALONEY [address] [place] [address] Dr Ar[address]elles [address] [place] [address] 12/23/2023 15:48:36 01/08/2024 09:19:02 Urine test positive 770329990 Z32.01 in office UPT positive Routine an tenatal care 156954373 Z34.81 -FH measuring large -FHR reassuring - vitals wnl - urine dip abnormal for proteinuri a, blood, and leuks - anticipato ry guidance provided - initiate PNV - follow-up pending results or in 4 weeks- Initial labs and dating US ordered today Vaginal discharge 864161 006 N89.8 obtain nuswab as patient is complainin g of DC on exam Nausea and vomiting in 1761589121 O21.9 Constipati on during 9642014374 2200401 K59.00 Late entry into care 421877216 O09.32 [id number] MD Luis Miguel Willis 14 OB [address] [facility] [address] [place] [address] 03/11/2024 14:41:05 03/13/2024 09:28:50 Routine care 646930672 Z34.82 [id number] MD Rohit MALONEY (CHEMICAL PLANT OPERATOR) [address] [place] [address] 07/06/2024 09:29:04 07/21/2024 13:25:12 care 639772740 Z39.2 - Bonding: Hard to haley due to baby living with foster mom, sees him once a week- Breast: No tenderness - Belly: Occasional cramping- Bowels: No concerns- Bladder: No concerns- Bleeding: Still having some vaginal bleeding but it is letting up- Boinking 'sex': Has had vaginal sex, instructed not to engage in vaginal sex for 6 weeks - Blues (EDPS): Started back at [facility], tearful in room due to baby not living at home with her, lives at home with zohra, has good support system, does not want to see a therapist/ counselor, has 4y/o boy with autism, has two kids from previous marriage and current fiance has 2 kids- Control: Nexplanon Plan:-Foll ow up in 4 weeks Asthma 773737217 J45.90 9 -Reports SOB daily, worse with movement/e xertion-Valero s diagnosis of asthma, has previously used an albuterol inhaler, requests inhaler to help with symptoms-P E negative for decreased air movement or wheezing Health Concerns Section Related Observation LastModified by Organization Detai ls LastModified Time None Recorded Concern Status LastModified by Organization Details LastModified Time None Recorded Advance Directives Directive N: Payers Insurance Date Sequence Insurance Name Policy Number Policy Person Covered Member ID Person Member ID Guarantor Name 02/26/2024 1 [facility] ON OR AFTER 11/10/20 (MEDICAID REPLACEMENT - HMO) Sierra Cheng [id number] Sierra Cheng 02/26/2024 1 [facility] ON OR AFTER 11/10/20 (MEDICAID REPLACEMENT - HMO) Sierra Cheng [id number] Sierra Cheng 12/20/2023 1 *SELF PAY* Carol Cheng 07/06/2024 SLIDING FEE SCHEDULE - DISCOUNT Sierra Cheng 12/23/2023 2 *SELF PAY* Carol Chneg Notes Date Note Type Note Provider Name and Address Organization Details Recorded Time 06/29/2021 text/html 25 yo F with PMh x of bipolar disorder, here to discuss erythma on back and changing control. Got bitten by something yesterday on her back, was viewing houses and concerned something may have crawled on herfelt nauseous and warm, but denies fevers/chillsNo chest pain, SOB, or throat swellingDenies bleeding, or discharge but endorses induration, itching, and pain Contraception carecurrently on sprintec, wants to go to depo,LMP 2/, currently on her period, likely last dayHas been on depo before many years ago, and tolerated it wellFeels sprintec is too many pills and is worried she may forget itCurrently occasionally sexually active, no condom usewould like STI testing Yokasta Fried MA null, [place] - [facility] 06/29/2021 14:12:08 12/23/2023 text/html OB plan: 28 y/o ; MICHAEL 06/23/2024 based on LMPonly, unconfirmed Pre- Weight: 143 lbs, BMI: within normal limits Pre-Eclampsia Risk: Risk Level: Continuity Resident: Problem List:late entry to care, cannabis use in previous preg, Bipolar disorder (not on meds currently) Anticipate [facility] Delivery INITIAL LABS Date:Ordered on 12/23/2023 Blood Type: Rh Type: Antibody Screen: CBC: Hgb Hct WBC Plts VDRL/RPR: Hep B: HepC: HIV: Vaginal Cultures: GC:; Chlamydia:;Trich: Pap: Rubella: Varicella: CF: SS: consistent with Urine Dip Culture: UDS: HozvatkS85:; consistent with Dating US: LMP: GA MICHAEL: Patient is of dating. DUS: Date AUA: MICHAEL: Discrepancy MICHAEL: Based on Anatomy Scan: 26 weeks: Date GTT: ; 3HR GTT CBC: Hgb Hct WBC Plts HIV: RPR Tdap: COVID: Flu RSV Rhogam: Date: 36 weeks: Date: Vaginal Cultures: GC:; Chlamydia:;Trich: GBS Limited US: Situational Awareness: Patient living with boyfriend, at his parent's home in [place], would like to stay at [facility] Patient did not have time to complete OB packets today. Support Person/Partner/Othe r Parent(s): Siblings: Possible Baby Name(s): Willing to participate in group visits: Home visits ok: Established Dentist: Dental Visit in the last year: Regular Exercise Routine: Taking vitamin prior to : Open to vaccination: Tdap: COVID: Flu: RSV: Consent for urine drug screen: [address]: PHQ9: GAD7: ACES: Resilience: Trauma/PTSD screen SDOH: Planning to breastfeed: Circumcision Epidural Post- contraception KELLE LEDESMA MD Attn: [facility] [place], [address], [facility] 01/07/2024 17:05:48 07/06/2024 text/html 28y/o F presenti ng for PP visit -Delivered on 06/22/24 at 38.2 via vaginal delivery of a full term SGA male- complicated by inadequate care, tobacco use in 3rd trimester, cocaine abuse in 1st trimester, MJ use during , BRUCE, and BP disorder-No epidural, progressed to complete without complications-PostH gb of 10.5-No Rhogam given-APGARs 7/9- weight: 4lb 14.1oz (2.214kg) (<1%-ile), no resuscitation needed-Discharge meds: Abilify and Gabapentin- control: Nexplanon (received prior to hospital discharge)-Extra: [place] under custody of [employer], [facility] of with [employer] - Bonding: Hard to haley due to baby living with foster mom, sees him once a week- Breast: No tenderness- Belly: Occasional cramping- Bowels: No concerns- Bladder: No concerns- Bleeding: Still having some vaginal bleeding but it is letting up- Boinking 'sex': Has had vaginal sex- Blues (EDPS): Started back at [facility], tearful in room due to baby not living at home with her, lives at home with fiduy, has good support system, does not want to see a therapist/counselor , has 4y/o boy with autism, has two kids from previous marriage and current fiance has 2 kids- Control: Nexplanon KELLE LEDESMA MD Attn: [facility] [place], [address], [facility] 07/16/2024 15:55:21 OBGyn Episode Ob Episode Information Episode Created Date Number of Fetuses Patient Bloodtype Patient rh Status Prepregnancy Weight lbs Domestic Partner Domestic Partner Phone Father Name Woodworking Machine Feeder Status 12/23/19 24 1 O Positive CLOSED Fetus Data First Name Last Name Admitted to NICU Weight (g) Sex Living Outcome Pediatric Complications Fetus ID Race Codes Race Delivery Type quinton Nieves tt false 2214.11 [id number] M true Full Term 70108 2106-3 White Vaginal Problems Problem Notes Problem Name Start Date End Date Resolution Snomed Code Not e Anemia of 02/20/2024 30278478 Hgb 10.2, normocyticFeS recommended. Tobacco smoking in mother complicating 12/23/2023 [id number] Late entry into care 12/23/2023 983258740 Varicella non-immune 02/20/2024 222344146 will need PP Varicella vaccine Harmful pattern of use of cannabis 12/23/2023 84282172 Recommended quitting Nausea and vomiting in 12/23/2023 6202997272 Recommended B6 and Doxylamine Michael Calculation Initial Michael Date Initial Exam Date Initial Exam Provider Initial Ultrasound Date Last Menstrual Period Date Ultra Sound Weeks Gestation 07/04/2024 12/23/2023 mmetias 01/21/2024 09/17/2023 16 Eighteen To Twenty Week Michael Update Ultra Sound Date Fundal Height At Umbil Quickening Date Ultra Sound Latest Weeks Gestation Final Michael Confirmed By Final Michael Confirmed Date Final Michael Date Ultra Sound Latest Days Gestation 0 mmetias 02/26/2024 07/04/19 25 0 Pre- Flowsheet Flowsheet Date 12/23/2023 Marcum Score Blood Edema Fundus Height Fundus Units Glucose Ketones Leukocytes Nitrite Labor Signs Protein Cervic Dilation Cervic Effacement Cervic Station 2+ none none large none 2+ Type Weight in lbs Pre/Post Dialysis Refused With clothes 143.469112857307 BP Diastolic BP Location Tested BP Systolic BP Type 72 R arm 112 sitting Fetus Heart Rate Present A 155 Present Fetus Movement A Yes Comments 28 yo @ 13.6wks by L MP only (09/17/2023, unsure) here for New OB. (MICHAEL 06/23/2024, unconfirmed). Preg complicated by late entry to care, cannabis use in previous preg, Bipolar disorder (not on meds currently). unplanned, but keeping it. Currently living with boyfriend at his parents, with her 3 children. Complaining of nausea and vomiting. not taking PNV. Also has pain with penetration. Endorses occasional FM, and some thicker than normal vaginal DC. Denies VB, no LOF, no contractions. Also quite constipatedOn exam, patient measuring at umbilicus, much larger than EGA by LMP, suspect closer 20 wks. Will obtain initial labs, and order Dating US. PNV and B6 25mg + Doxylamine 25mg daily prescribed for nausea. Check Nuswab for vaginal DC. Docusate-senna for Constipation. Anticipatory guidance provided. RTC in 3-4 weeks for SAPNA. Flowsheet Date 03/11/2024 Marcum Score Blood Edema Fundus Height Fundus Units Glucose Ketones Leukocytes Nitrite Labor Signs Protein Cervic Dilation Cervic Effacement Cervic Station none 22 cm none none Type Weight in lbs Pre/Post Dialysis Refused With clothes 145.00303121272 BP Diastolic BP Location Tested BP Systolic BP Type Fetus Heart Rate Present A 150 Fetus Movement A Yes Comments Pt doing well. Missed this m gregorying appt w/ Tres due to being on the bus for over 4 hours. Pt teary due to long morning, not eating and having 1 yo son with her. Pt fed at this office, money given to her for expenses and ride given by this provider after this visit to take her and son home. Regarding - pt doing well. starting to feel movement. feeling overwhelmed with living arrangements and issues with 4 yo autistic son. Will get pt set up with [facility] here at [facility] and have our health insurance adjuster get in touch. Pt given [facility] Legal help info to help pt obtain a divorce from the father of first two children who is now in detention. Pt to follow up in 2 weeks with T[facility], sooner if needed. This provider will keep in touch to make sure pt is able to get to appts. Pt v/u. Flowsheet Date 07/06/2024 Marcum Score Blood Edema Fundus Height Fundus Units Glucose Ketones Leukocytes Nitrite Labor Signs Protein Cervic Dilation Cervic Effacement Cervic Station Type Weight in lbs Pre/Post Dialysis Refused With clothes 129.48691314178 BP Diastolic BP Location Tested BP Systolic BP Type 64 R arm 118 sitting Fetus Heart Rate Present Fetus Movement Comments Menstrual History Last Menstrual Date Menses Monthly On Bcp Conception Prior Menses Frequency Hcg Plus Date Menarche Onset Age 0509/17/2023 true false 28 4 Delivery Information Delivery Date Delivery Type Labor Anesthesia Weeks Gestation Incision Type Labor Labor Length Hrs Delivered By Post Complications Tubal Sterilization Discharge Date Comments 5 Sponta neous None 38.2 false 6 false 06/25/2024 Discharge Information Feeding Method Contraceptive Method Maternal HG B and HCT Levels Bottle nexplanon placed in hospital Ob Episode Information Episode Created Date Number of Fetuses Patient Bloodtype Patient rh Status Prepregnancy Weight lbs Domestic Partner Domestic Partner Phone Father Name Woodworking Machine Feeder Status 09/07/19 23 1 CLOSED Fetus Data First Name Last Name Admitted to NICU Weight (g) Sex Living Outcome Pediatric Complications Fetus ID Race Codes Race Delivery Type 2778.25 1 F Full Term [id number] Vaginal Michael Calculation Initial Michael Date Initial Exam Date Initial Exam Provider Initial Ultrasound Date Last Menstrual Period Date Ultra Sound Weeks Gestation 0 Eighteen To Twenty Week Michael Update Ultra Sound Date Fundal Height At Umbil Quickening Date Ultra Sound Latest Weeks Gestation Final Michael Confirmed By Final Michael Confirmed Date Final Michael Date Ultra Sound Latest Days Gestation 0 0 Menstrual History Last Menstrual Date Menses Monthly On Bcp Conception Prior Menses Frequency Hcg Plus Date Menarche Onset Age Delivery Information Delivery Date Delivery Type Labor Anesthesia Weeks Gestation Incision Type Labor Labor Length Hrs Delivered By Post Complications Tubal Sterilization Discharge Date Comments [address] Discharge Information Feeding Method Contraceptive Method Maternal HG B and HCT Levels Ob Episode Information Episode Created Date Number of Fetuses Patient Bloodtype Patient rh Status Prepregnancy Weight lbs Domestic Partner Domestic Partner Phone Father Name Woodworking Machine Feeder Status 09/07/19 23 1 O Positive CLOSED Fetus Data First Name Last Name Admitted to NICU Weight (g) Sex Living Outcome Pediatric Complications Fetus ID Race Codes Race Delivery Type [id number] Problems Problem Notes 09/06/22: Hospital: Undecided Breast Feed: Yes Circumcision: Yes PPBC: Undecided Woodworking Machine Feeder: Undecided Problem Name Start Date End Date Resolution Snomed Code Not e Varicella non-immune 09/14/2022 [id number] Substance abuse 09/14/2022 [id number] Michael Calculation Initial Michael Date Initial Exam Date Initial Exam Provider Initial Ultrasound Date Last Menstrual Period Date Ultra Sound Weeks Gestation 03/25/2023 09/06/2022 [email or web address] 06/18/2022 0 Eighteen To Twenty Week Michael Update Ultra Sound Date Fundal Height At Umbil Quickening Date Ultra Sound Latest Weeks Gestation Final Michael Confirmed By Final Michael Confirmed Date Final Michael Date Ultra Sound Latest Days Gestation 0 03/25/20 23 0 Pre- Flowsheet Flowsheet Date 09/06/2022 Marcum Score Blood Edema Fundus Height Fundus Units Glucose Ketones Leukocytes Nitrite Labor Signs Protein Cervic Dilation Cervic Effacement Cervic Station 2+ none none large 1+ Type Weight in lbs Pre/Post Dialysis Refused With clothes [id number] BP Diastolic BP Location Tested BP Systolic BP Type 70 110 sitting Fetus Heart Rate Present Fetus Movement Comments 09/06/22: NOB ACOG visit w/nu rse for education, WOMBSS, and lab work OB Episode initiated & NOB lab work ordered per Provider Micah's OB protocol. Patient IS NOT interested in WOMBSS group sessions, Pharmacist Referral or home visit by provider Menstrual History Last Menstrual Date Menses Monthly On Bcp Conception Prior Menses Frequency Hcg Plus Date Menarche Onset Age 0206/18/2022 true false 30 9 Genetic Screening And Infection History Question Response Note Patient's Age Will Be 35 Yea rs Or Older At Estimated Date of Delivery false Thalassemia (Serbian, Japanese, Mediterranean, Or Background): MCV < 80 false Neural Tube Defect (Meningomyelocele, Spina Bifida, Or Anencephaly) false Congenital Heart Defect false Down Syndrome false Kvng-Sachs (eg, Anabaptist, Cajun , Ukrainian-Coats) false Freddie Disease false Sickle Cell Disease Or Trait () false Hemophilia Or Other Blood Disorders false Muscular Dystrophy false Cystic Fibrosis false [place]'s Chorea false Mental Retardation/Autism false If Yes, Was Person Tested Fo r Fragile X? false Other Inherited Genetic Or Chromosomal Disorder false Maternal Metabolic Disorder (eg, Type 1 Diabetes, PKU) false Patient Or Baby's Father Had A Child With Defects Not Listed Above false Recurrent Loss, Or A Stillbirth false Medications (including Suppl ements, Vitamins, Herbs, OTC Drugs), Illicit/Recreational Drugs, Alcohol true Albuterol InhalerC lindamycin (Tooth Abscess)FamotidineNorco 5/325 (Tooth Abscess)Reglan, THC If Yes, Agent(s) And Strength/Dosage true Any Other Genetic History false Live With Someone With TB Or Exposed To TB false Patient Or Partner Has Histo ry Of Genital Herpes false Rash Or Viral Illness Since Last Menstrual Period false History Of STD, Gonorrhea, Chlamydia, HPV, Syphilis true CT 2016 Other Infection History false History of HIV false History of Hepatitis false Prior GBS-infected child false Plans and Education First Trimester Discussed Date Discussion Item Discussion Note Discuss ed By 09/06/2022 Anticipated course o f care 09/06/22: Care Plan Discussed: pantera ferreira 09/06/2022 Alcohol 09/06/22: ACOG Ed ucation: pantera ferreira 09/06/2022 Intimate partner violence 3: ACOG Education: pantera ferreira 09/06/2022 Environmental/work hazards : ACOG Education: pantera ferreira 09/06/2022 Screening for aneuploidy 09/06/22 : ACOG Education: pantera ferreira 09/06/2022 Nutrition counseling ; special diet; dietary precautions (mercury, listeriosis) 09/06/22: ACOG Education: pantera ferreira 09/06/2022 Childbirth classes/h ospital facilities 09/06/22: ACOG Education: pantera ferreira 09/06/2022 HIV and other routin e tests 09/06/22: ACOG Education: pantera ferreira 09/06/2022 Risk factors identif ied by history 09/06/22: ACOG Education: pantera ferreira 09/06/2022 Weight gain counseling 09/06/22: ACOG Education: pantera ferreira 09/06/2022 Exercise 09/06/22: ACOG Ed ucation: pantera ferreira 09/06/2022 Teratogens 09/06/22: ACOG Ed ucation: pantera ferreira 09/06/2022 Use of any medicatio ns (including supplements, vitamins, herbs, or OTC drugs) 09/06/22: ACOG Education: pantera ferreira 09/06/2022 09/06/22: ACOG Ed ucation: pantera ferreira 09/06/2022 Sexual activity 09/06/22: ACOG Ed ucation: pantera ferreira 09/06/2022 Tobacco/smoking cess ation counseling (ask, advise, assess, assist, and arrange) 09/06/22: ACOG Education: pantera orellanalpandrew 09/06/2022 Illicit/recreational drugs : ACOG Education: pantera ferreira 09/06/2022 Dental care 09/06/22: ACOG Ed ucation: pantera [email or web address] 09/06/2022 Travel 09/06/22: ACOG Ed ucation: pantera nashauercrystal 09/06/2022 Seat belt use 09/06/22: ACOG Ed ucation: pantera [email or web address] 09/06/2022 Indications for ultrasonography 09/06/22: ACOG Education: pantera nashauercrystal 09/06/2022 Avoidance of saunas or hot tubs 09/06/22: ACOG Education: pantera ferreira 09/06/2022 Toxoplasmosis precau tions (cats/raw meat) 09/06/22: ACOG Education: pantera ferreira Second Trimester Discussed Date Discussion Item Discussion Note Discuss ed By Third Trimester Discussed Date Discussion Item Discussion Note Discuss ed By Delivery Information Delivery Date Delivery Type Labor Anesthesia Weeks Gestation Incision Type Labor Labor Length Hrs Delivered By Post Complications Tubal Sterilization Discharge Date Comments Discharge Information Feeding Method Contraceptive Method Maternal HG B and HCT Levels Ob Episode Information Episode Created Date Number of Fetuses Patient Bloodtype Patient rh Status Prepregnancy Weight lbs Domestic Partner Domestic Partner Phone Father Name Woodworking Machine Feeder Status 09/07/19 1 CLOSED Fetus Data First Name Last Name Admitted to NICU Weight (g) Sex Living Outcome Pediatric Complications Fetus ID Race Codes Race Delivery Type , [place] [id number] Michael Calculation Initial Michael Date Initial Exam Date Initial Exam Provider Initial Ultrasound Date Last Menstrual Period Date Ultra Sound Weeks Gestation 0 Eighteen To Twenty Week Michael Update Ultra Sound Date Fundal Height At Umbil Quickening Date Ultra Sound Latest Weeks Gestation Final Michael Confirmed By Final Michael Confirmed Date Final Michael Date Ultra Sound Latest Days Gestation 0 0 Menstrual History Last Menstrual Date Menses Monthly On Bcp Conception Prior Menses Frequency Hcg Plus Date Menarche Onset Age Delivery Information Delivery Date Delivery Type Labor Anesthesia Weeks Gestation Incision Type Labor Labor Length Hrs Delivered By Post Complications Tubal Sterilization Discharge Date Comments 5 8 Miscarri e d POC at home Discharge Information Feeding Method Contraceptive Method Maternal HG B and HCT Levels Ob Episode Information Episode Created Date Number of Fetuses Patient Bloodtype Patient rh Status Prepregnancy Weight lbs Domestic Partner Domestic Partner Phone Father Name Woodworking Machine Feeder Status 09/07/19 23 1 CLOSED Fetus Data First Name Last Name Admitted to NICU Weight (g) Sex Living Outcome Pediatric Complications Fetus ID Race Codes Race Delivery Type 2579.57 [id number] M Full Term [id number] Vaginal Michael Calculation Initial Michael Date Initial Exam Date Initial Exam Provider Initial Ultrasound Date Last Menstrual Period Date Ultra Sound Weeks Gestation 0 Eighteen To Twenty Week Michael Update Ultra Sound Date Fundal Height At Umbil Quickening Date Ultra Sound Latest Weeks Gestation Final Michael Confirmed By Final Michael Confirmed Date Final Michael Date Ultra Sound Latest Days Gestation 0 0 Menstrual History Last Menstrual Date Menses Monthly On Bcp Conception Prior Menses Frequency Hcg Plus Date Menarche Onset Age Delivery Information Delivery Date Delivery Type Labor Anesthesia Weeks Gestation Incision Type Labor Labor Length Hrs Delivered By Post Complications Tubal Sterilization Discharge Date Comments 0 [facility]- in[facility] 40 Discharge Information Feeding Method Contraceptive Method Maternal HG B and HCT Levels Ob Episode Information Episode Created Date Number of Fetuses Patient Bloodtype Patient rh Status Prepregnancy Weight lbs Domestic Partner Domestic Partner Phone Father Name Woodworking Machine Feeder Status 09/07/19 23 1 CLOSED Fetus Data First Name Last Name Admitted to NICU Weight (g) Sex Living Outcome Pediatric Complications Fetus ID Race Codes Race Delivery Type , [place] [id number] Michael Calculation Initial Michael Date Initial Exam Date Initial Exam Provider Initial Ultrasound Date Last Menstrual Period Date Ultra Sound Weeks Gestation 0 Eighteen To Twenty Week Michael Update Ultra Sound Date Fundal Height At Umbil Quickening Date Ultra Sound Latest Weeks Gestation Final Michael Confirmed By Final Michael Confirmed Date Final Michael Date Ultra Sound Latest Days Gestation 0 0 Menstrual History Last Menstrual Date Menses Monthly On Bcp Conception Prior Menses Frequency Hcg Plus Date Menarche Onset Age Delivery Information Delivery Date Delivery Type Labor Anesthesia Weeks Gestation Incision Type Labor Labor Length Hrs Delivered By Post Complications Tubal Sterilization Discharge Date Comments 9 Delivere d POC w/sac and fetus at home Discharge Information Feeding Method Contraceptive Method Maternal HG B and HCT Levels Ob Episode Information Episode Created Date Number of Fetuses Patient Bloodtype Patient rh Status Prepregnancy Weight lbs Domestic Partner Domestic Partner Phone Father Name Woodworking Machine Feeder Status 03/16/20 21 1 DELETED Michael Calculation Initial Michael Date Initial Exam Date Initial Exam Provider Initial Ultrasound Date Last Menstrual Period Date Ultra Sound Weeks Gestation 0 Eighteen To Twenty Week Michael Update Ultra Sound Date Fundal Height At Umbil Quickening Date Ultra Sound Latest Weeks Gestation Final Michael Confirmed By Final Michael Confirmed Date Final Michael Date Ultra Sound Latest Days Gestation 0 0 Menstrual History Last Menstrual Date Menses Monthly On Bcp Conception Prior Menses Frequency Hcg Plus Date Menarche Onset Age Delivery Information Delivery Date Delivery Type Labor Anesthesia Weeks Gestation Incision Type Labor Labor Length Hrs Delivered By Post Complications Tubal Sterilization Discharge Date Comments 0 false Discharge Information Feeding Method Contraceptive Method Maternal HG B and HCT Levels Ob Episode Information Episode Created Date Number of Fetuses Patient Bloodtype Patient rh Status Prepregnancy Weight lbs Domestic Partner Domestic Partner Phone Father Name Woodworking Machine Feeder Status 03/16/20 21 1 DELETED Michael Calculation Initial Michael Date Initial Exam Date Initial Exam Provider Initial Ultrasound Date Last Menstrual Period Date Ultra Sound Weeks Gestation 0 Eighteen To Twenty Week Michael Update Ultra Sound Date Fundal Height At Umbil Quickening Date Ultra Sound Latest Weeks Gestation Final Michael Confirmed By Final Michael Confirmed Date Final Michael Date Ultra Sound Latest Days Gestation 0 0 Menstrual History Last Menstrual Date Menses Monthly On Bcp Conception Prior Menses Frequency Hcg Plus Date Menarche Onset Age Delivery Information Delivery Date Delivery Type Labor Anesthesia Weeks Gestation Incision Type Labor Labor Length Hrs Delivered By Post Complications Tubal Sterilization Discharge Date Comments 7 true Discharge Information Feeding Method Contraceptive Method Maternal HG B and HCT Levels
--- OUTSIDE RECORDS SUMMARY | 2024-11-18 10:31 | XMS_ITS | Clinical Summary ---
Author Organization [facility] Address [address] [place] [address] Phone Care Team Providers Care Engineering Mathematician Name Role Phone Unavailable Primary Care Provider Unavailabl e Allergies Active Allergy Reactions Criticality Noted Date Comments Onion Swelling Low 04/23/2018 Phenergan Dm Hives High 04/22/2018 Medications mirtazapine (REMERON) 15 mg tabletIndicatio ns:depression Take 1 Tablet (15 mg) by mouth daily at bedtime. 30 Tablet 04/25/2018 Active hydrOXYzine HCl (ATARAX) 50 mg tablet Take 1 Tablet (50 mg) by mouth every 4 hours as needed for Anxiety. 30 Tablet 04/25/2018 Active traZODone (DESYREL) 100 mg tablet Take 1 Tablet (100 mg) by mouth nightly as needed for Insomnia. 30 Tablet 04/25/2018 Active Active Problems Problem Noted Date Diagnosed Date Severe episode of recurrent major depressive disorder, without psychotic features 04/23/2018 Nicotine abuse Routine general medical examination at [facility] facility Family History Relation Name Status Comments Father Alive Mother Alive Social History Tobacco Use Types Packs/Day Years Used Date Smoking Tobacco: Every Day Cigarettes Smokeless Tobacco: Never Alcohol Use Standard Drinks/Week Comments Yes 0 (1 standard drink = 0.6 oz pur e alcohol) tequila nightly Comments No Sex and Gender Information Value Date Recorded Sex Assigned at Not on file 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 Gender Identity Not on file Sexual Orientation Not on file Last Filed Vital Signs Vital Sign Reading Time Taken Comments Blood Pressure 116/70 04/25/2018 8:49 AM BICYCLE I ASSEMBLER Pulse 76 04/25/2018 8:49 AM BICYCLE I ASSEMBLER Temperature 36.1 C (97 F) 04/25/2018 8:49 AM BICYCLE I ASSEMBLER Respiratory Rate 18 04/25/2018 8:49 AM BICYCLE I ASSEMBLER Oxygen Saturation 97% 04/25/2018 8:49 AM BICYCLE I ASSEMBLER Inhaled Oxygen Concentration - - Weight 48.1 kg (106 lb) 04/23/2018 11:33 AM BICYCLE I ASSEMBLER Height 157.5 cm (5' 2) 04/23/2018 11:33 AM BICYCLE I ASSEMBLER Body Mass Index 19.39 04/23/2018 11:33 AM BICYCLE I ASSEMBLER Plan of Treatment Health Maintenance Due Date Last Done Comments DTAP/TDAP/TD VACCINES (1 - Tdap) 2016 HEPATITIS B VACCINES (1 of 3 - 19+ 3-dose series) 2016 CERVICAL CANCER SCREENING 2018 HPV/Cotest (21-29) 2018 PAP SMEAR 2018 INFLUENZA VACCINE (#1) 2024 HPV VACCINES Aged Out No longer eligi ble based on patient's age to complete this topic Advance Directives For more information, please contact: [phone] * Full Code (Latest Code Status on File) Date Activated Date Inactivated Comments 04/23/2018 12:49 PM 04/25/2018 2:47 PM
[2024-11-18] MEDS: KETOROLAC (*BKC) 60 MG/2 ML VIAL IM (10:44)
[2024-11-18 10:53] VITALS: BP 134/98
== END 2024-11-18 10:53 | disposition home or self-care (01) ==
PROVIDERS: Emergency Provider Nurse Practitioner Family
DX: K08.89 Other specified disorders of teeth and supporting structures (principal); K04.7 Periapical abscess without sinus
CPT/HCPCS: 96372; 99213; G0463; J1885

== ENCOUNTER 2025-01-18 10:50 | Emergency (ER) | payer BC, SELFPAY ==
--- OUTSIDE RECORDS SUMMARY | 2025-01-15 07:51 | XMS_ITS | Encounter Summary ---
Author Organization [facility] Address [address] [place] [address] Care Team Providers Care Customer Retention Representative Name Role Phone No, Physician Primary Care Provider [phone] Salome Urena MD Unavailable [phone] Encounter Details Date Type Department Care Team (Late st Contact Info) Description 01/15/2025 7:51 AM CDT Hospital Encounter [facility] Social History Tobacco Use Types Packs/Day Years Used Date Smoking Tobacco: Every Day Cigarettes 0.5 16.7 Started: 2008 Passive Smoke Exposure: Current Smokeless Tobacco: Never Comments:10 cigarettes per d ay Alcohol Use Standard Drinks/Week Comments Not Currently 0 (1 standard drink = 0.6 oz pur e alcohol) [facility] Utilities Answer Date Recorded In the past 12 months has e [place], gas, oil, or water [employer] threatened to shut off services in your home? Yes 06/22/2024 Humiliation, Afraid, Rape, and Kick questionnair e Answer Date Recorded Within the last year, have y ou been afraid of your partner or ex-partner? No 06/22/2024 Within the last year, have y ou been humiliated or emotionally abused in other ways by your partner or ex-partner? No Within the last year, have y ou been kicked, hit, slapped, or otherwise physically hurt by your partner or ex-partner? No 06/22/2024 Within the last year, have y ou been raped or forced to have any kind of sexual activity by your partner or ex-partner? No 06/22/2024 Social Connection and Isolation Panel Answer Date Recorded In a typical week, how many times do you talk on the phone with family, friends, or neighbors? More than three times a week 06/22/2024 How often do you get togethe r with friends or relatives? Once a week 06/22/2024 How often do you attend chur ch or gnosticist services? Never 06/22/2024 Do you belong to any clubs o r organizations such as rastafarian groups, unions, fraternal or athletic groups, or school groups? No 06/22/2024 How often do you attend meet ings of the clubs or organizations you belong to? Never 06/22/2024 Are you , , di vorced, , never , or living with a partner? Living with partner 06/22/2024 AUDIT-C Answer Date Recorded Q1: How often do you have a drink containing alc ohol? Monthly or less 06/22/2024 Q2: How many drinks containi ng alcohol do you have on a typical day when you are drinking? 1 or 2 06/22/2024 Q3: How often do you have si x or more drinks on one occasion? Never 06/22/2024 Overall Financial Resource Strain (CARDIA) Answe r Date Recorded How hard is it for you to pa y for the very basics like food, housing, medical care, and heating? Hard 06/22/2024 PHQ-2 Answer Date Recorded PHQ-2 Total Score 0 06/22/2024 [facility] - Occupational Stress Questionnaire Answer Date Recorded Do you feel stress - tense, restless, nervous, or anxious, or unable to sleep at night because your mind is troubled all the time - these days? Rather much 06/22/2024 Exercise Vital Sign Answer Date Recorde d On average, how many days pe r week do you engage in moderate to strenuous exercise (like a brisk walk)? 7 days 06/22/2024 On average, how many minutes do you engage in exercise at this level? 30 min 06/22/2024 Hunger Vital Sign Answer Date Recorded Within the past 12 months, y ou worried that your food would run out before you got the money to buy more. Never true 06/22/19 25 Within the past 12 months, t he food you bought just didn't last and you didn't have money to get more. Never true 06/22/2024 PRAPARE - Transportation Answer Date Re corded In the past 12 months, has l ack of transportation kept you from medical appointments or from getting medications? Yes 06/13 In the past 12 months, has l ack of transportation kept you from meetings, work, or from getting things needed for daily living? Yes 06/22/2024 Housing Stability Vital Sign Answer Alfredo e Recorded In the last 12 months, was t here a time when you were not able to pay the mortgage or rent on time? No 03/25/2023 In the last 12 months, how many places have you lived? 1 03/25/2023 In the last 12 months, was t here a time when you did not have a steady place to sleep or slept in a skilled nursing (including now)? No 03/25/2023 [place] Depression Scale Answer Date Recorded [place] Depression Scale Total 3 06/22/2024 The thought of harming myself has occurred to me . Never 06/22/2024 PHQ-9 Answer Date Recorded PHQ-9 Total Score 12 05/04/2024 Housing Stability Vital Sign Answer Alfredo e Recorded In the last 12 months, was t here a time when you were not able to pay the mortgage or rent on time? Yes 06/22/2024 In the past 12 months, how m any times have you moved where you were living? 1 06/22/2024 At any time in the past 12 m [facility], were you homeless or living in a skilled nursing (including now)? Yes 06/22/2024 Personal Safety Answer Date Recorded Have you ever been in or are you currently in a harmful physical or emotional relationship or is someone making you feel afraid or unsafe? 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
--- NOTE | ~2025-01-18 | CT_ITS ---
EXAMINATION: CT abdomen pelvis w con DATE: 01/18/2025 11:59 INDICATION: Abdominal pain TECHNIQUE: Computed tomography (CT) of the abdomen and pelvis was performed with 100 mL Omnipaque-350 intravenous contrast. Automated exposure control and iterative reconstruction technique were employed. The dose-length product was 299.70 mGy-cm. COMPARISON: None FINDINGS: Lung bases are clear. Heart size is normal. No pericardial or pleural effusion. Small sliding-type hiatal hernia. 4 mm low-attenuation cyst in the right hepatic lobe. Gallbladder, spleen, pancreas, bilateral adrenal glands and kidneys are normal. Bowels including the appendix are normal. Bilateral adnexal cysts/follicles the largest on the right measuring 3.4 cm. Decompressed bladder and anteverted uterus are unremarkable. No free intraperitoneal gas or fluid. No pathologically enlarged abdominal or pelvic lymphadenopathy. Mild to moderate lower thoracic spondylosis. Unilateral chronic left sacroiliitis with a few small erosions and subarticular sclerosis. No suggestion of associated joint effusion or inflammatory changes to suggest an acute infectious sacroiliitis. IMPRESSION: 1. Bilateral ovarian cysts/follicles the largest on the right measuring 3.4 cm. No acute intra-abdominal/pelvic process. 2. Small sliding-type hiatal hernia. 3. Chronic appearing mild unilateral left sacroiliitis which could be related to osteoarthritis, gout, reactive or psoriatic arthritis or sequela of chronic infection. Reviewed, dictated and finalized at location A.
[2025-01-18 10:54] VITALS: BP 160/91; PULSE 66; RESP 26; TEMP 36.6; O2SAT 99
--- NOTE | 2025-01-18 10:59 | ED_ITS ---
HPI - General Adult General Chief complaint: Abdominal Pain Stated complaint: abd pain x 1 wk History of Present Illness HPI narrative: 29-year-old female presents to the emergency department for evaluation for cyclic nausea and vomiting and worsening abdominal pain. Patient states her current symptoms have been bothering her for the last week. [place] she had worsening symptoms. Patient arrived to the emergency department by EMS. Patient was hyperventilating and complaining of abdominal pain. Patient does admit to daily THC use and patient has been told previously that she has cannabinoid hyperemesis syndrome but patient does not feel this is an accurate diagnosis. Related Data Home Medications ?Medication ?Instructions ?Recorded ?Confirmed ?Last Taken ?Type etonogestrel 68 mg subdermal 1 implant subdermal ONCE 11/18/24 11/18/24 Unknown History implant (Nexplanon) gabapentin 100 mg capsule 100 mg PO DAILY 11/18/2402/04 Unknown History Allergies Allergy/AdvReac Type Severity Reaction Status Date / Time promethazine AdvReac Unknown HIVES/VOMIT Verified 11/18/24 10:30 ING Review of Systems 2 Review of Systems: All systems reviewed & are unremarkable except as noted in HPI and below Exam 2 Narrative: APPEARANCE: Uncomfortable appearing HEAD: normocephalic, atraumatic. EYES: PERRLA/EOMI, conjunctivae clear. NOSE: Normal no drainage EARS:TMS clear with good light reflex. THROAT: Pharynx clear, no exudate. NECK: Supple. No adenopathy, no masses. RESPIRATORY: Airway patent, respirations nonlabored. Clear to auscultation bilaterally, no rales, rhonchi, wheezing. CARDIOVASCULAR: Regular rate and rhythm without murmurs rubs or gallops. ABDOMINAL: Soft, nontender, nondistended, normal bowel sounds MUSCULOSKELETAL: Moves all extremities. Strength/ROM intact, No edema, No calf tenderness. NEURO: Alert. Cranial nerves II through XII intact. SKIN: Warm, dry. Normal Color Course Vital Signs Vital signs: Vital Signs Temperature 97.8 F 01/18/25 10:54 Pulse Rate 66 01/18/25 10:54 Respiratory Rate 26 H 01/18/25 10:54 Blood Pressure 160/91 H 01/18/25 10:54 Pulse Oximetry 99 01/18/25 10:54 Oxygen Delivery Room Air 01/18/25 10:54 Temperature 97.8 F 01/18/25 10:54 Pulse Rate 77 01/18/25 13:50 Respiratory Rate 13 01/18/25 13:50 Blood Pressure 108/61 01/18/25 13:50 Pulse Oximetry 99 01/18/25 13:50 Oxygen Delivery Room Air 01/18/25 10:54 Medical Decision Making MDM Narrative Medical decision making narrative: 29-year-old female present to the emergency department for evaluation for persistent nausea and vomiting. Patient is afebrile but does have a leukocytosis 11.5 hemoglobin 13.9. Patient has an INR 1.0, patient has no significant abnormalities on her CMP. Patient did have a lactic acid of 2.1. UA is was positive for ketones and many squamous cells low concern for UTI and patient does not have any urinary symptoms. CT scan showed no acute intra- abdominal findings. Patient was treated with IV fluids Reglan and GI cocktail and IV Protonix and IM Haldol. On re-evaluation patient does feel significantly improved. I had a lengthy discussion with the patient about cannabinoid hyperemesis syndrome. Patient will make some lifestyle changes and patient will have close follow-up with GI. Differential Diagnosis Differential Diagnosis: Cannabinoid hyperemesis syndrome, appendicitis, gastritis, bowel perforation, gastroparesis, cyclic nausea and vomiting Vital Signs Vital Signs: Vital Signs Temperature 97.8 F 01/18/25 10:54 Pulse Rate 66 01/18/25 10:54 Respiratory Rate 26 H 01/18/25 10:54 Blood Pressure 160/91 H 01/18/25 10:54 Pulse Oximetry 99 01/18/25 10:54 Oxygen Delivery Room Air 01/18/25 10:54 Temperature 97.8 F 01/18/25 10:54 Pulse Rate 77 01/18/25 13:50 Respiratory Rate 13 01/18/25 13:50 Blood Pressure 108/61 01/18/25 13:50 Pulse Oximetry 99 01/18/25 13:50 Oxygen Delivery Room Air 01/18/25 10:54 Lab Data Lab results reviewed: Yes I reviewed the patient's lab results. 01/18/25 11:06 01/18/25 11:06 Labs: Lab Results 01/18/25 01/18/25 01/18/25 Range/Units 11:06 11:12 11:22 WBC 11.8 H (4.5-10.0) K/mm3 RBC 4.84 (4.2-5.4) M/mm3 Hgb 13.9 D (12.0-15.0) g/dL Hct 42.2 (37.0-47.0) % MCV 87.2 (80-100) fl MCH 28.7 (26-34) pg MCHC 32.9 (32-36) g/dl RDW 15.8 H (11.5-14.5) % Plt Count 288 (150-375) k/mm3 MPV 10.0 (7.4-10.4) fl Immature Gran % (Auto) 0.6 H (0-0.5) % Neut % (Auto) 74.8 H (45.5-73.1) % Lymph % (Auto) 17.1 L (18.3-44.2) % [place] % (Auto) 6.1 (2.6-8.5) % Eos % (Auto) 0.9 (0-4.4) % Baso % (Auto) 0.5 (0.2-1.2) % Lymph # (Auto) 2.03 (0.9-3.2) K/mm3 [place] # (Auto) 0.7 H (0.1-0.6) K/mm3 Eos # (Auto) 0.1 (0-0.3) K/mm3 Baso # (Auto) 0.1 (0.0-0.1) K/mm3 Abs Immat Gran (auto) 0.07 H (0.00-0.031) K/mm3 Absolute Neuts (auto) 8.9 H (1.3-6.7) K/mm3 Absolute Nucleated RBC 0.000 (0.0-0.012) K/mm3 Nucleated RBC % 0.0 (0.0-0.2) % PT 13.3 (11.1-14.7) Seconds INR 1.0 APTT 28.4 (22.3-36.8) Seconds Sodium 139 (137-145) mmol/L Potassium 3.8 (3.4-5.0) mmol/L Chloride 104 (98-107) mmol/L Carbon Dioxide 21 L (22-30) mmol/L Anion Gap 14 H (4-12) mmol/L BUN 8 D (7-17) mg/dL Creatinine 0.83 (0.7-1.0) mg/dL Estim Creat Clear Calc 83 ml/min Estimated GFR > 60 (59 - ) Glucose 110 (65-110) mg/dL Lactic Acid 2.1 H (0.7-2.0) mmol/L Calcium 9.9 (8.4-10.2) mg/dL Total Bilirubin 0.9 (0.2-1.3) mg/dL AST 32 (14-36) U/L ALT 18 (6-35) U/L Alkaline Phosphatase 79 (38-126) U/L Total Protein 8.9 H (6.3-8.2) g/dL Albumin 5.1 (3.5-5.1) g/dL Lipase 176 (23-300) U/L Urine Color Yellow (Yellow) Urine Appearance Clear (Clear) Urine pH 7.5 (5.0-9.0) Ur Specific [place] 1.020 (1.001-1.035) Urine Protein 2+ H (Negative) mg/dL Urine Glucose (UA) Negative (Negative) mg/dL Urine Ketones 4+ H (Negative) mg/dL Ur Blood (Man) Trace-intact H (Negative) Urine Nitrate Negative (Negative) Urine Bilirubin 1+ H (Negative) Urine Urobilinogen 0.2 (<2.0) mg/dL Leukocyte Esterase Rfl Negative (Negative) DORA/UL Urine RBC 3-5 H (0-2) /hpf Urine WBC 6-10 H (0-3) /hpf Ur Squamous Epith Cells Many H (Few) /hpf Urine Bacteria Rare /hpf Urine Casts 0-2 POC Urine HCG, Qual Negative (Negative) 01/18/25 Range/Units 13:38 WBC (4.5-10.0) K/mm3 RBC (4.2-5.4) M/mm3 Hgb (12.0-15.0) g/dL Hct (37.0-47.0) % MCV (80-100) fl MCH (26-34) pg MCHC (32-36) g/dl RDW (11.5-14.5) % Plt Count (150-375) k/mm3 MPV (7.4-10.4) fl Immature Gran % (Auto) (0-0.5) % Neut % (Auto) (45.5-73.1) % Lymph % (Auto) (18.3-44.2) % [place] % (Auto) (2.6-8.5) % Eos % (Auto) (0-4.4) % Baso % (Auto) (0.2-1.2) % Lymph # (Auto) (0.9-3.2) K/mm3 [place] # (Auto) (0.1-0.6) K/mm3 Eos # (Auto) (0-0.3) K/mm3 Baso # (Auto) (0.0-0.1) K/mm3 Abs Immat Gran (auto) (0.00-0.031) K/mm3 Absolute Neuts (auto) (1.3-6.7) K/mm3 Absolute Nucleated RBC (0.0-0.012) K/mm3 Nucleated RBC % (0.0-0.2) % PT (11.1-14.7) Seconds INR APTT (22.3-36.8) Seconds Sodium (137-145) mmol/L Potassium (3.4-5.0) mmol/L Chloride (98-107) mmol/L Carbon Dioxide (22-30) mmol/L Anion Gap (4-12) mmol/L BUN (7-17) mg/dL Creatinine (0.7-1.0) mg/dL Estim Creat Clear Calc ml/min Estimated GFR (59 - ) Glucose (65-110) mg/dL Lactic Acid 0.6 L (0.7-2.0) mmol/L Calcium (8.4-10.2) mg/dL Total Bilirubin (0.2-1.3) mg/dL AST (14-36) U/L ALT (6-35) U/L Alkaline Phosphatase (38-126) U/L Total Protein (6.3-8.2) g/dL Albumin (3.5-5.1) g/dL Lipase (23-300) U/L Urine Color (Yellow) Urine Appearance (Clear) Urine pH (5.0-9.0) Ur Specific [place] (1.001-1.035) Urine Protein (Negative) mg/dL Urine Glucose (UA) (Negative) mg/dL Urine Ketones (Negative) mg/dL Ur Blood (Man) (Negative) Urine Nitrate (Negative) Urine Bilirubin (Negative) Urine Urobilinogen (<2.0) mg/dL Leukocyte Esterase Rfl (Negative) DORA/UL Urine RBC (0-2) /hpf Urine WBC (0-3) /hpf Ur Squamous Epith Cells (Few) /hpf Urine Bacteria /hpf Urine Casts POC Urine HCG, Qual (Negative) Imaging Data Radiologist's impression: FINDINGS: Lung bases are clear. Heart size is normal. No pericardial or pleural effusion. Small sliding-type hiatal hernia. 4 mm low-attenuation cyst in the right hepatic lobe. Gallbladder, spleen, pancreas, bilateral adrenal glands and kidneys are normal. Bowels including the appendix are normal. Bilateral adnexal cysts/follicles the largest on the right measuring 3.4 cm. Decompressed bladder and anteverted uterus are unremarkable. No free intraperitoneal gas or fluid. No pathologically enlarged abdominal or pelvic lymphadenopathy. Mild to moderate lower thoracic spondylosis. Unilateral chronic left sacroiliitis with a few small erosions and subarticular sclerosis. No suggestion of associated joint effusion or inflammatory changes to suggest an acute infectious sacroiliitis. IMPRESSION: 1. Bilateral ovarian cysts/follicles the largest on the right measuring 3.4 cm. No acute intra-abdominal/pelvic process. 2. Small sliding-type hiatal hernia. 3. Chronic appearing mild unilateral left sacroiliitis which could be related to osteoarthritis, gout, reactive or psoriatic arthritis or sequela of chronic infection. Discharge Plan Discharge Clinical Impression: Cannabinoid hyperemesis syndrome, Gastritis Patient Disposition: Home Condition: Stable Instructions: Antibiotic Form, Gastritis (DC), Diet for Stomach Ulcers and Gastritis (ED) Additional Instructions: Zofran for nausea control, Reglan as needed for additional nausea control. Omeprazole as directed to decrease your stomach acid for the next 14 days. Follow a bland diet for the next few days. Avoid alcohol and avoid NSAIDs. Have close follow-up with GI. Continue to educate yourself on cannabinoid hyperemesis syndrome. Patient Language: Jamaican Prescriptions: New omeprazole 20 mg capsule,delayed release(DR/EC) 20 mg PO DAILY 14 Days Qty: 14 0RF ondansetron 4 mg tablet,disintegrating 4 mg PO Q8H PRN (Reason: nausea and vomiting) Qty: 14 0RF metoclopramide HCl [Reglan] 10 mg tablet 10 mg PO Q6H PRN (Reason: nausea and vomiting) Qty: 14 0RF No Action Nexplanon 68 mg implant 1 implant subdermal ONCE Rx Instructions: as a single dose gabapentin 100 mg capsule 100 mg PO DAILY amoxicillin-pot clavulanate 875-125 mg tablet 1 tablet PO Q12H 10 Days Qty: 20 0RF ibuprofen 800 mg tablet 800 mg PO TID 10 Days Qty: 30 0RF Follow-up/Referrals: Edin Lee MD [Physician, Gastroenterology] UNKNOWN,DOCTOR [Primary Care Provider]
[2025-01-18] MEDS: LACTATED RINGERS 1,000 ML 999 ML IV CONT (11:02)
[2025-01-18] MEDS: BELLADONNA ALK/PHENOB ELIX 10 ML, MAG HYDROX/ALUMINUM HYD/SIMETH 30 ML, LIDOCAINE 2% VI... PO (11:03)
[2025-01-18] MEDS: HALOPERIDOL LACTATE 5 MG/ML VIAL IM (11:04)
[2025-01-18] MEDS: PANTOPRAZOLE SODIUM IV 40 MG VIAL IV PUSH (11:04)
[2025-01-18 11:15] LABS: Hematocrit 42.2 % (37.0-47.0); Hemoglobin 13.9 g/dL (12.0-15.0); Immature Granulocyte Percent A 0.6 % (0-0.5); Lymphocytes Absolute Auto 2.03 K/mm3 (0.9-3.2); Mean Corpuscular HGB Conc 32.9 g/dl (32-36); Mean Corpuscular Hemoglobin 28.7 pg (26-34); Mean Corpuscular Volume 87.2 fl (80-100); Nucleated Red Blood Cells Absolute Auto 0.000 K/mm3 (0.0-0.012); Nucleated Red Blood Cells Perc 0.0 % (0.0-0.2); Platelet Count Result 288 k/mm3 (150-375); Red Blood Count 4.84 M/mm3 (4.2-5.4); White Blood Count 11.8 K/mm3 (4.5-10.0)
[2025-01-18 11:24] LABS: BEDSIDEPREGUCG Negative (Negative)
--- OUTSIDE RECORDS SUMMARY | 2025-01-18 11:26 | XMS_ITS | Clinical Summary ---
Author Organization [facility] Address [address] [place] [address] Care Team Providers Care Valve Repairer Reclamation Name Role Phone Patricia Nicolas LCSW Unavailable Unavailabl e None, Physician Primary Care Provider Unavailabl e Source Comments [facility],non-owned Affiliates and Associated Physician Practices is amultiple site organization consisting of ambulatory clinics and hospital sitesin [place], [place], [place]. This disclosure is being madepursuant to the Care Everywhere program and may not contain all information available regarding this patient. Last updated 18.[facility] Allergies Active Allergy Reactions Criticality Noted Date Comments Latex Itching 09/19/2022 Promethazine Skin Reactions 10/11/2018 Medications * This document contains information received from the source organization and may not represent a complete record from that organization. * Be aware that medications may not be up to date on this document. Alwaysverify current medications with the patient. metoclopramide (Reglan) 10 MG tablet 3 Active albuterol HFA (Proventil; Ventolin; Proair) 108 (90 Base) MCG/ACT inhaler Take 2 (two) puffs by mouth every 4 hours 2 Active albuterol HFA (Proventil HFA) 108 (90 Base) MCG/ACT inhaler Inhale 2 (two) puffs by mouth every 4 hours as needed 6.7 g 3 Active cetirizine (ZyrTEC) 10 MG tablet Take 1 (one) tablet by mouth once daily 30 tablet 3 3 Active pyridoxine (Vitamin B-6) 25 MG tablet Take 2 (two) tablets by mouth once daily 90 tablet 3 3 Active doxylamine (Unisom) 25 MG tablet Take 1 (one) tablet by mouth nightly as needed for Insomnia 90 tablet 3 3 Active famotidine (Pepcid) 20 MG tablet Take 1 (one) tablet by mouth every 12 hours 60 tablet 3 3 Active fluticasone-wilner meterol (Advair/Wixela) 100-50 MCG/ACT inhaler Inhale 1 (one) puff by mouth 2 times daily 60 Each 3 3 Active ondansetron (Zofran) 4 MG tabletIndicatio ns:Nausea and/or Vomiting in Take 1 (one) tablet by mouth every 6 hours as needed for Nausea/Vomitin g Reasons: Nausea and Vomiting in 30 tablet 3 Active Active Problems Problem Noted Date Diagnosed Date Tobacco use in 11/01/2022 Asthma 11/01/2022 Nausea and vomiting during 11/01/2022 Supervision of high-risk of ramana manzano igravirona 09/18/2022 Overview (09/19/2022): Dating: PNL: O+/I/-/ RPR NR, HIV NR Pap: declined on 09/19/22 GC/CT: neg/neg. Trich: neg Urine cx: 09/06/22 neg. [facility] records UDS: 09/06/22 +cocaine, THC, opiates H/H/P: 12.0/35.7/282 HgbE: negative, lab colin record 08/2022 Genetics: CF neg. NIPT-declined on 09/19/22 Anatomy US: Flu shot: LFT's: HCV: NR Third trimester: GCT: H/H/P: RPR: HIV: Tdap: GBS: History of hemorrhage, currently preg nant 09/18/2022 Overview (09/18/2022): G2 Anxiety and depression 10/13/2018 Resolved Problems Problem Noted Date Diagnosed Date Resolved Date Leakage of amniotic fluid 02/17/2023 History of hyperemesis gravidarum 09/18/2022 09/19/2022 Scabies 10/12/2018 11/09/2018 Immunizations Immunization Administration Dates Next Due Covid Pfizer primary Monovalent 12+ yr 0.3ml Covid Pfizer primary monovalent 12+ yr 0.3mL Pur ple cap 05/22/2021 PNEUMOCOCCAL PPV VACCINE 12/18/2019 TDAP, HISTORIC VACCINE 12/18/2019 Family History Medical History Relation Name Comments Drug Abuse Father Schizophrenia Father Bipolar Disorder Mother Drug Abuse Mother Relation Name Status Comments Father Alive Mother Alive Social History Tobacco Use Types Packs/Day Years Used Date Smoking Tobacco: Every Day Cigarettes 0.5 14 Smokeless Tobacco: Never Tobacco Cessation:Ready to Q uit: Not Asked; Counseling Given: Not Answered Alcohol Use Standard Drinks/Week Comments Not Currently 0 (1 standard drink = 0.6 oz pur e alcohol) Overall Financial Resource Strain (CARDIA) Answe r Date Recorded How hard is it for you to pa y for the very basics like food, housing, medical care, and heating? Somewhat hard 02/17/2023 [facility] [place] of Occupat ional Health - Occupational Stress Questionnaire Answer Date Recorded Do you feel stress - tense, restless, nervous, or anxious, or unable to sleep at night because your mind is troubled all the time - these days? To some extent 02/17/2023 Hunger Vital Sign Answer Date Recorded Within the past 12 months, y ou worried that your food would run out before you got the money to buy more. Often true Within the past 12 months, t he food you bought just didn't last and you didn't have money to get more. Sometimes true 12/2022 PRAPARE - Transportation Answer Date Re corded In the past 12 months, has l ack of transportation kept you from medical appointments or from getting medications? Yes 12/2022 In the past 12 months, has l ack of transportation kept you from meetings, work, or from getting things needed for daily living? Yes 02/17/2023 Housing Stability Vital Sign Answer Alfredo e Recorded In the last 12 months, was t here a time when you were not able to pay the mortgage or rent on time? No 02/17/2023 In the last 12 months, how many places have you lived? 1 02/17/2023 In the last 12 months, was t here a time when you did not have a steady place to sleep or slept in a [place] (including now)? No 02/17/2023 [place] Depression Scale Answer Date Recorded [place] Depression Scale Total 5 09/19/2022 The thought of harming myself has occurred to me . Never 09/19/2022 Comments No Sex and Gender Information Value Date Recorded Sex Assigned at Not on file Legal Sex Female 10:59 PM CDT Gender Identity Not on file Sexual Orientation Not on file Last Filed Vital Signs Vital Sign Reading Time Taken Comments Blood Pressure 126/69 02/17/2023 10:11 PM CDT Pulse 58 02/17/2023 4:55 PM CDT Temperature 36.9 C (98.4 F) 02/17/2023 4:55 PM CDT Respiratory Rate 18 02/17/2023 9:08 PM CDT Oxygen Saturation 100% 02/17/2023 7:12 PM CDT Inhaled Oxygen Concentration - - Weight 62.9 kg (138 lb 9.6 oz) 11/01/2022 10:32 AM CDT Height 157.5 cm (5' 2) 02/17/2023 5:00 PM CDT Body Mass Index 25.35 09/19/2022 10:26 AM CDT Plan of Treatment Health Maintenance Due Date Last Done Comments HEPATITIS B VACCINE (1 of 3 - 19+ 3-dose series) 2016 PAP SMEAR 2018 PNEUMOCOCCAL VACCINE (2 of 2 - PCV) 12/17/2020 12/18/2019 COVID-19 VACCINE (3 - 2023-2 5 season) 2024 07/06/2021, 05/22/2021 DEPRESSION SCREENING 05/13/2024 HPV VACCINE (1 - 3-dose SCDM series) 2024 INFLUENZA VACCINE (#1) 2025 DTAP/TDAP/TD VACCINES (2 - T d or Tdap) 12/17/2029 12/18/2019 ZOSTER VACCINE (1 of 2) 08/24/2047 HIV SCREENING Completed 11/05/2019, 06/17/2019 HEPATITIS C SCREENING Completed 03/24/2023 , 12/16/2019 HIB VACCINE Aged Out No longer eligi ble based on patient's age to complete this topic MENINGOCOCCAL (Group B) VACCINE SHARED DECISION-MAKING Aged Out No longer eligible based on patient's age to complete this topic MENINGOCOCCAL GROUPS A/C/Y/W VACCINE Aged Out No longer eligible b ased on patient's age to complete this topic Insurance [id number] [place] [address] [id number] Advance Directives * Full Code (Latest Code Status on File) Date Activated Date Inactivated Comments 10/13/2018 4:37 PM 10/17/2018 1:57 PM * Full Code Date Activated Date Inactivated Comments 10/12/2018 8:22 AM 10/13/2018 4:37 PM * Full Code Date Activated Date Inactivated Comments 10/12/2018 8:22 AM 10/12/2018 8:22 AM Care Teams Valve Repairer Reclamation Relationship Specialty Start Date End Date None, Physician [address] [place] [address] PCP - General 02/17/23 Patricia Nicolas LCSW Outpatient Tamale Maker 12/25/22
--- OUTSIDE RECORDS SUMMARY | 2025-01-18 11:26 | XMS_ITS | Clinical Summary ---
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 Gender Identity Not on file Sexual Orientation Not on file Last Filed Vital Signs Vital Sign Reading Time Taken Comments Blood Pressure 116/70 04/25/2018 8:49 AM BENCH LOOM WEAVER Pulse 76 04/25/2018 8:49 AM BENCH LOOM WEAVER Temperature 36.1 C (97 F) 04/25/2018 8:49 AM BENCH LOOM WEAVER Respiratory Rate 18 04/25/2018 8:49 AM BENCH LOOM WEAVER Oxygen Saturation 97% 04/25/2018 8:49 AM BENCH LOOM WEAVER Inhaled Oxygen Concentration - - Weight 48.1 kg (106 lb) 04/23/2018 11:33 AM BENCH LOOM WEAVER Height 157.5 cm (5' 2) 04/23/2018 11:33 AM BENCH LOOM WEAVER Body Mass Index 19.39 04/23/2018 11:33 AM BENCH LOOM WEAVER Plan of Treatment Health Maintenance Due Date Last Done Comments DTAP/TDAP/TD VACCINES (1 - Tdap) 2016 HEPATITIS B VACCINES (1 of 3 - 19+ 3-dose series) 08/11 CERVICAL CANCER SCREENING 2018 HPV/Cotest (21-29) 2018 PAP SMEAR 2018 HPV VACCINES (1 - 3-dose SCDM series) 2024 INFLUENZA VACCINE (#1) 2024 Advance Directives For more information, please contact: [phone] * Full Code (Latest Code Status on File) Date Activated Date Inactivated Comments 04/23/2018 12:49 PM 04/25/2018 2:47 PM
--- OUTSIDE RECORDS SUMMARY | 2025-01-18 11:26 | XMS_ITS | Clinical Summary ---
Author Organization [facility] [address] Address [address] [place] [address] Phone Care Team Providers Care Information Writer Name Role Phone No, Physician Primary Care Provider [phone] Salome Urena MD Unavailable [phone] Allergies Active Allergy Reactions Criticality Noted Date Comments Promethazine Hives Medium 04/26/2021 Medications albuterol HFA (PROVENTIL HFA,VENTOLIN HFA,PROAIR HFA) 90 mcg/actuation inhaler Inhale 2 puffs every 4 (four) hours as needed for wheezing or shortness of breath 09/20/19 23 Active ferrous sulfate 325 mg (65 mg of elemental iron) tablet Take 1 tablet (325 mg total) by mouth daily with breakfast 02/26/20 24 Active ARIPiprazole (ABILIFY) 10 mg tabletIndications :Bipolar Disorder Take 1 tablet (10 mg total) by mouth daily 30 tablet 06/24/19 25 Active docusate sodium (COLACE) 100 mg capsuleIndication s:constipation,St ool Softener Take 1 capsule (100 mg total) by mouth 2 (two) times a day 30 capsule 06/24/19 25 Active gabapentin (NEURONTIN) 300 mg capsule Take 1 capsule (300 mg total) by mouth nightly 30 capsule 06/24/19 25 Active ibuprofen (ADVIL,MOTRIN) 600 mg tabletIndications :Pain Take 1 tablet (600 mg total) by mouth every 6 (six) hours as needed for pain 30 tablet 06/24/19 25 Active ondansetron ODT (ZOFRAN-ODT) 4 mg disintegrating tabletIndications :Nausea and Vomiting Take 1 tablet (4 mg total) by mouth every 6 (six) hours as needed for nausea or vomiting 20 tablet 06/24/19 25 Active vit-iron fum-folic ac 27 mg iron- 800 mcg tabletIndications :Vitamin Deficiency Prevention Take 1 tablet by mouth daily 30 tablet 06/24/19 25 Active polyethylene glycol (MIRALAX) 17 gram/dose bulk powderIndications :constipation Take 17 g by mouth daily 289 g 06/24/19 25 Active dicyclomine (BENTYL) 20 mg tablet Take 1 tablet (20 mg total) by mouth 2 (two) times a day 20 tablet 01/16/20 25 026 Active ondansetron (ZOFRAN) 4 mg tablet Take 1 tablet (4 mg total) by mouth every 6 (six) hours 12 tablet 01/16/20 25 Active dicyclomine (BENTYL) 20 mg tablet Take 1 tablet (20 mg total) by mouth 2 (two) times a day 20 tablet 01/16/20 25 025 Discontinued ondansetron (ZOFRAN) 4 mg tablet Take 1 tablet (4 mg total) by mouth every 6 (six) hours 12 tablet 01/16/20 25 025 Discontinued Active Problems Problem Noted Date Diagnosed Date 38 weeks gestation of 06/22/2024 Has child with Autisim 06/22/2024 Nausea and vomiting during 05/04/2024 complicated by tobacco use in second t rimester 03/05/2024 Hyponatremia 03/05/2024 Metabolic acidosis 03/05/2024 Abdominal pain affecting 03/05/2024 22 weeks gestation of 03/24/2023 History of inadequate care 03/24/2023 History of illicit drug use 03/24/2023 complicated by tobacco use in third tr imester 03/24/2023 Cocaine abuse affecting in first trime ster 03/24/2023 Marijuana use during 03/24/2023 Generalized anxiety disorder 03/24/2023 Bipolar affective disorder in remission 03/24/20 23 Encounters Date Type Department Care Team Description 01/15/2025 8:10 AM CDT - 01/15/2025 10:22 AM CDT Emergency [facility] Emergency Department [address] [place] [address] Andriy Corral MD Gastroenteritis (Primary Dx) Discharge Disposition: Discharge to home or self care 01/15/2025 7:51 AM CDT Hospital Encounter [facility] from Last 3 Months Immunizations Immunization Administration Dates Next Due MMR 06/24/2024 Medical History Medical History Date Comments Bipolar depression (HCC) Social History Tobacco Use Types Packs/Day Years Used Date Smoking Tobacco: Every Day Cigarettes 0.5 16.7 Started: 2008 Passive Smoke Exposure: Current Smokeless Tobacco: Never Tobacco Cessation:Ready to Q uit: No; Counseling Given: Yes Comments:10 cigarettes per day Alcohol Use Standard Drinks/Week Comments Not Currently 0 (1 standard drink = 0.6 oz pur e alcohol) [facility] Utilities Answer Date Recorded In the past 12 months has e [employer] gas, oil, or water [employer] threatened to shut off services in your [...] often do you attend chur ch or tenriism services? Never 06/22/2024 Do you belong to any clubs o r organizations such as quaker groups, unions, fraternal or athletic groups, or [...] Date Recorded PHQ-2 Total Score 0 06/22/2024 [facility] of Occupat ional Health - Occupational [...] place to sleep or slept in a penitentiary (including now)? No 03/25/2023 [place] Depression Scale Answer Date Recorded [place] Depression Scale Total 3 06/22/2024 The thought [...] any time in the past 12 m [facility], were you homeless or living in a penitentiary (including now)? Yes 06/22/2024 Personal Safety Answer Date Recorded Have you ever been in or are you currently in a harmful physical or emotional relationship or is someone making you feel afraid or unsafe? 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 Gender Identity Not on file Sexual Orientation Not on file Obstetrics History Para Term AB IAB SAB Ectopic Multiple Livin g Live Births 6 4 4 2 2 0 4 4 Date Outcome GA Total Labor Labor/2nd/3rd Weight Sex Type Anes PTL Sowmya A1 A5 Name Clin 5 SAB 15w 0d 2016 Term 39w 0d 2.778 kg (6 lb 2 oz) F Vag-Sp ont Epidur al N Livin g Delivery Location:[place] 9 SAB 8w0 d 2019 Term 40w 2d 6h 39m 6h 15m/0h 18m/0h 06m 2.579 kg (5 lb 11 oz) M Vag-Sp ont Epidur al N Livin g 8 9 ISABEL OSUNA MD Complications: care, History of hemorrhage Delivery Location:[facility]) 2022 Term 40w 4d 9h 08m 8h 35m/0h 28m/0h 05m 2.693 kg (5 lb 15 oz) M Vagina l Epidur al N Livin g 8 9 CamOrellana tt Som Borjas MD Complications:None Delivery [facility]) 2024 Term 38w 2d 0h 09m 0h 09m/ 2.214 kg (4 lb 14.1 oz) M Vagina l None N Livin g 7 9 Hari Nieves tt Jovany terry, Peña hood MD Complications:None Delivery [facility]) Last Filed Vital Signs Vital Sign Reading Time Taken Comments Blood Pressure 108/60 01/15/2025 10:15 AM CDT Pulse 59 01/15/2025 10:15 AM CDT Temperature 37.2 C (99 F) 01/15/2025 8:08 AM CDT Respiratory Rate 18 01/15/2025 10:15 AM CDT Oxygen Saturation 98% 01/15/2025 10:15 AM CDT Inhaled Oxygen Concentration - - Weight 70.3 kg (155 lb) 01/15/2025 8:08 AM CDT Height 157.5 cm (5' 2) 01/15/2025 8:08 AM CDT Body Mass Index 28.35 01/15/2025 8:08 AM CDT Plan of Treatment Health Maintenance Due Date Last Done Comments Cervical Cancer Screening 1997 Hepatitis C Screening 1997 Hepatitis B Screening 08/24/2015 Regular Well Visit/Exam 18-64 08/24/2015 Pneumococcal vaccine <65 (2 of 2 - PCV) 12/17/2020 12/18/2019 Varicella Vaccines (1 of 2 - 13+ 2-dose series) 07/22/2024 HPV Vaccines (1 - 3-dose SCD M series) 2024 Covid-19 Vaccine (2 - 2024-2 6 season) 2025 05/22/2021 Influenza Vaccine (#1) 2025 Depression Screening 06/22/2025 06/22/2024, 05/06/2024, 03/05/2024, Additional history exists DTaP/Tdap/Td Vaccine (2 - Td or Tdap) 12/17/2029 12/18/2019 Procedures Procedure Name Priority Date/Time Associated Diagnosis Comments POCT HCG, URINE Routine 01/15/2025 8:24 AM CDT URINALYSIS, MICROSCOPIC ONLY STAT 01/15/2025 8:13 AM CDT URINALYSIS AND REFLEX TO MICROSCOPIC AND CULTURE STAT 01/15/2025 8:13 AM CDT EGFR STAT 01/15/2025 8:12 AM CDT DIFFERENTIAL AUTO STAT 01/15/2025 8:1 2 AM CDT LIPASE STAT 01/15/2025 8:12 AM CDT COMPREHENSIVE METABOLIC PANEL STAT 01/15/2025 8:12 AM CDT CBC WITH AUTO DIFFERENTIAL STAT 01/15/2025 8:12 AM CDT from Last 3 Months Results * POCT hCG, urine (01/15/2025 8:24 AM CDT) HCG, ur, POC Negative Negative Lot Number [id number] QC Backgroud Clear Acceptable QC Control Line Acceptable Urine 01/15/2025 8:24 AM CDT Andriy Corral MD POINT OF CARE TEST ORDERABLES Final Result * (ABNORMAL) Urinalysis reflex to microscopic and culture Urine (01/15/2025 8:13 AM CDT) Color, ur Yellow Yellow Clarity, ur Clear Clear LUIS E DENNIS ([place]) Specific gravity, ur 1.026 1.003 - 1.030 LUIS E NGUYEN (JOHN) pH, urine 6.5 LUIS E NGUYEN (JOHN) Comment: Interpretive Data U rine pH is affected by diet, medications, systemic acid-base disturbances, and renal tubular function. pH may affect urinary stone formation. For example, urine pH below 6.0 may help reduce the tendency for calcium phosphate stones and pH greater than 6.0 may reduce the tendency for uric acid stone formation. Source: [facility] Current Interpretive Data was last revised on 2017 Protein, ur ql 1+(A) Negative [facility] ([facility]) Glucose, ur ql Negative Negative [facility] ([facility]) Ketones, ur 1+(A) Negative [facility] ([place]) Bilirubin, ur Negative Negative [facility] ([facility]) Blood, ur Trace(A) Negative [facility] ([facility]) Urobilinogen, ur 2.0(A) <2.0 mg/dL [facility] ([facility]) Nitrite, ur Negative Negative [facility] ([facility]) Leukocyte esterase, ur Negative Negative [facility] ([facility]) UA reflex comment Reflex to microscopic UA will be performed. LUIS E NGUYEN (JOHN) Urine 01/15/2025 8:13 AM CDT 01/15/2025 8:45 AM CDT Andriy Corral MD LAB MICROBIOLOGY - GENERAL ORD ERABLES Final Result Performing Organization Address [facility]/ZIP Co de Phone Number LUIS E NGUYEN (JOHN) [address] [facility] [place] [address] * (ABNORMAL) Urinalysis, microscopic only (01/15/2025 8:13 AM CDT) WBC, ur 0-5 0 - 5 /HPF RBC, ur 3-5(A) 0 - 2 /HPF [facility] ([facility]) Epithelial cells, squamous, ur 6-10(A) 0 - 5 /HPF [facility] ([facility]) Mucous, ur Present(A) [facility] (JOHN) Culture Reflex Comment Reflex conditions for urine culture (WBC >10) not met. LUIS E NGUYEN (JOHN) Urine 01/15/2025 8:13 AM CDT 01/15/2025 8:45 AM CDT us Andriy Corral MD LAB URINE ORDERABLES Final Res ult Performing Organization Address City/[facility]/ZIP Co de Phone Number LUIS E NGUYEN (JOHN) [address] Department [place] [address] * eGFR (01/15/2025 8:12 AM CDT) Pathologist [facility] eGFR >90 >=60 mL/min/1. 73 m2 Comment: Interpretive Data Reference Interval Normal >/= 90 mL/min/1.73m2 Mildly decreased* 60 - 89 mL/min/1.73m2 Mildly to moderately decreased 45 - 59 mL/min/1.73m2 Moderately to severely decreased 30 - 44 mL/min/1.73m2 Severely decreased 15 - 29 mL/min/1.73m2 Kidney Failure < 15 mL/min/1.73m2 *Relative to young adult level Estimated glomerular filtration rate is determined by the 2020 CKD-EPI equation recommended by the National Kidney Foundation (A Unifying Approach to GFR Estimation: Recommendations of the NKF-ASK Task Force on Reassessing the Inclusion of Race in Diagnosing Kidney Disease, JASN 2020). The CKD-EPI equation should not be used for patients with unstable renal function and has not been validated in children and those over 70. Current interpretive data was last reviewed 2021. Blood 01/15/2025 8:12 AM CDT 01/15/2025 8:17 AM CDT us Andriy Corral MD LAB BLOOD ORDERABLES Final Res ult LUIS E NGUYEN ([place]) 1 [facility] Department [place] [address] * (ABNORMAL) Differential, auto (01/15/2025 8:12 AM CDT) Pathologist [facility] Neutrophil abs 7.56(H) 1.50 - 6.50 K/cumm Imm gran abs 0.04 0.00 - 0.10 K/cumm [facility] ([facility]) Lymphocyte abs 2.04 0.80 - 3.30 K/cumm [facility] ([facility]) Monocyte abs 0.48 0.20 - 0.80 K/cumm [facility] ([facility]) Eosinophil abs 0.18 0.00 - 0.50 K/cumm [facility] ([facility]) Basophil abs 0.04 0.00 - 0.10 K/cumm [facility] ([facility]) Neutrophil pct 73.2 % [facility] ([facility]) Comment: Interpretive Data Percent cell count reference ranges are not reported, since discordance with absolute values may lead to misinterpretation of CBC data. Current Interpretive Data was last revised on 2017. Imm gran pct 0.4 % [facility] ([facility]) Comment: Interpretive Data Percent cell count reference ranges are not reported, since discordance with absolute values may lead to misinterpretation of CBC data. Current Interpretive Data was last revised on 2017. Lymphocyte pct 19.7 % [facility] ([facility]) Comment: Interpretive Data Percent cell count reference ranges are not reported, since discordance with absolute values may lead to misinterpretation of CBC data. Current Interpretive Data was last revised on 2017. Monocyte pct 4.6 % [facility] ([facility]) Comment: Interpretive Data Percent cell count reference ranges are not reported, since discordance with absolute values may lead to misinterpretation of CBC data. Current Interpretive Data was last revised on 2017. Eosinophil pct 1.7 % [facility] ([facility]) Comment: Interpretive Data Percent cell count reference ranges are not reported, since discordance with absolute values may lead to misinterpretation of CBC data. Current Interpretive Data was last revised on 2017. Basophil pct 0.4 % [facility] ([facility]) Comment: Interpretive Data Percent cell count reference ranges are not reported, since discordance with absolute values may lead to misinterpretation of CBC data. Current Interpretive Data was last revised on 2017. Blood 01/15/2025 8:12 AM CDT 01/15/2025 8:17 AM CDT us Andriy Corral MD LAB BLOOD ORDERABLES Final Res ult LUIS E NGUYEN (JOHN) [address] [facility] Department [place] [address] * (ABNORMAL) CBC with auto differential (01/15/2025 8:12 AM CDT) WBC 10.34(H) 3.80 - 9.90 K/cumm Hgb 13.0 11.9 - 15.5 g/dL [facility] ([facility]) Hct 39.6 35.6 - 45.5 % [facility] ([facility]) Plt 251 150 - 400 K/cumm [facility] ([facility]) MPV 10.1 9.1 - 12.3 fL [facility] ([facility]) RBC 4.54 3.90 - 5.20 M/cumm [facility] ([facility]) MCV 87.2 81.3 - 96.4 fL [facility] ([facility]) MCH 28.6 27.1 - 33.3 pg [facility] ([facility]) MCHC 32.8 32.3 - 35.7 g/dL [facility] ([facility]) RDW CV 15.8(H) 11.1 - 14.9 % [facility] ([facility]) RDW SD 50.4(H) 35.7 - 48.1 fL [facility] ([facility]) NRBC abs 0.00 0.00 - 0.01 K/cumm [facility] ([facility]) Blood Venous blood specimen / Unknown 01/15/2025 8:12 AM CDT 01/15/2025 8:17 AM CDT Andriy Corral MD LAB BLOOD ORDERABLES Final Res ult Performing Organization Address City/[facility]/ZIP Co de Phone Number LUIS E NGUYEN (JOHN) [address] [facility] [place] [address] * Lipase (01/15/2025 8:12 AM CDT) Lipase 26 10 - 99 Units/L [facility] ([facility]) Blood Venous blood specimen / Unknown 01/15/2025 8:12 AM CDT 01/15/2025 8:17 AM CDT Andriy Corral MD LAB BLOOD ORDERABLES Final Res ult LUIS E NGUYEN (JOHN) [address] [facility] Department [place] [address] * Comprehensive metabolic panel (01/15/2025 8:12 AM CDT) Sodium 136 135 - 145 mmol/L [facility] ([facility]) Potassium, pl 3.8 3.3 - 4.9 mmol/L [facility] ([facility]) Chloride 103 97 - 110 mmol/L [facility] ([facility]) CO2 22 22 - 32 mmol/L [facility] ([facility]) Anion gap 11 2 - 15 mmol/L [facility] ([facility]) BUN 9 6 - 25 mg/dL [facility] ([facility]) Creatinine 0.72 0.60 - 1.10 mg/dL [facility] ([facility]) Glucose 94 70 - 199 mg/dL [facility] ([facility]) Comment: Interpretive Data Fasting glucose >/= 126 mg/dl is diagnostic for diabetes. Fasting is defined as no caloric intake for at least 8 hours. Fasting glucose between 100 mg/dl to 125 mg/dl is diagnostic of prediabetes. In a patient with classic symptoms of hyperglycemia or hyperglycemic crisis, a random glucose >/= 200 mg/dl is diagnostic for diabetes. In the absence of unequivocal hyperglycemia, results should be confirmed by repeat testing. The classification and Diagnosis of Diabetes Diabetes Care 2021; 46: S19-S40. Current interpretive data was last revised 2022. Calcium 9.4 8.5 - 10.3 mg/dL [facility] ([facility]) Bilirubin, total 0.6 0.1 - 1.2 mg/dL [facility] ([facility]) Protein, pl 7.6 6.5 - 8.5 g/dL [facility] ([facility]) Albumin 4.5 3.5 - 5.0 g/dL [facility] ([facility]) Alk phos 68 40 - 130 Units/L [facility] ([facility]) ALT 11 7 - 45 Units/L [facility] ([facility]) AST 19 10 - 45 Units/L [facility] ([facility]) Blood 01/15/2025 8:12 AM CDT 01/15/2025 8:17 AM CDT us Andriy Corral MD LAB BLOOD ORDERABLES Final Res ult [facility] [place] [address] [facility] Department [place] [address] from Last 3 Months Insurance PLAN Advance Directives For more information, please contact: [phone] * Full Code (Latest Code Status on File) Date Activated Date Inactivated Comments 06/22/2024 5:07 AM 06/25/2024 12:15 AM * Full Code Date Activated Date Inactivated Comments 06/22/2024 4:39 AM 06/22/2024 5:07 AM Full CPR in case of cardiopulmonary arrest * Full Code Date Activated Date Inactivated Comments 03/24/2023 5:37 PM 03/26/2023 10:40 PM * Full Code Date Activated Date Inactivated Comments 03/24/2023 2:54 AM 03/24/2023 5:37 PM Full CPR i n case of cardiopulmonary arrest Care Teams Information Writer Relationship Specialty Start Date End Date No, Physician PCP - General 04/26/17 Salome Urena MD [address] [place] [address] [place] [address] Consulting Physician Obstetrics and Gynecology 03/26/23
[2025-01-18 11:28] LABS: Alanine Aminotransferase 18 U/L (6-35); Albumin Level 5.1 g/dL (3.5-5.1); Alkaline Phosphatase 79 U/L (38-126); Anion Gap 14 mmol/L (4-12); Aspartate Amino Transferase 32 U/L (14-36); Bilirubin,Total 0.9 mg/dL (0.2-1.3); Blood Urea Nitrogen 8 mg/dL (7-17); Calcium 9.9 mg/dL (8.4-10.2); Carbon Dioxide 21 mmol/L (22-30); Chloride 104 mmol/L (98-107); Estimated CRCL calculation 83 ml/min; Estimated Glomerular Filt Rate > 60; Glucose 110 mg/dL (65-110); INR 1.0; Lipase 176 U/L (23-300); Potassium 3.8 mmol/L (3.4-5.0); Prothrombin Time 13.3 Seconds (11.1-14.7); Sodium 139 mmol/L (137-145); Total Protein 8.9 g/dL (6.3-8.2)
[2025-01-18 11:29] LABS: Partial Thromboplastin Time 28.4 Seconds (22.3-36.8)
[2025-01-18 11:45] LABS: Appearance Urine Clear (Clear); Glucose Urine UA Negative (Negative); Specific Grav Ur 1.020 (1.001-1.035)
[2025-01-18 11:46] LABS: Add Urine Microscopic? YES; Leukocyte Esterase Ur Negative LEU/UL (Negative); Nitrate Urine Negative (Negative)
[2025-01-18] MEDS: HYDROmorphone HCL INJ (*CRX) 1 MG/ML SYR IV PUSH (11:46)
[2025-01-18 11:51] LABS: Non Pathogenic Casts 0-2
[2025-01-18 13:50] VITALS: BP 108/61; PULSE 77; RESP 13; O2SAT 99
== END 2025-01-18 13:52 | disposition home or self-care (01) ==
PROVIDERS: Emergency Provider Emergency Medicine
DX: K29.70 Gastritis, unspecified, without bleeding (principal); R11.2 Nausea with vomiting, unspecified; F12.90 Cannabis use, unspecified, uncomplicated; N83.202 Unspecified ovarian cyst, left side; N83.201 Unspecified ovarian cyst, right side; K44.9 Diaphragmatic hernia without obstruction or gangrene; M46.1 Sacroiliitis, not elsewhere classified
CPT/HCPCS: 36415; 74177; 80053; 81001; 81025; 83605; 83690; 85025; 85610; 85730; 96361; 96372; 96374; 96375; 99284; A9270; J1171; J1630; J2470; J7120; Q9967

== ENCOUNTER 2025-03-11 07:47 | Emergency (ER) | payer BC, SELFPAY ==
--- NOTE | ~2025-03-11 | CT_ITS ---
EXAMINATION: CT abdomen pelvis w con DATE: 03/11/2025 09:11 INDICATION: Abdominal pain TECHNIQUE: Computed tomography (CT) of the abdomen and pelvis was performed with 100 mL Omnipaque-350 intravenous contrast. Automated exposure control and iterative reconstruction technique were employed. The dose-length product was 308.19 mGy-cm. COMPARISON: 01/18/2025 FINDINGS: Lung bases are clear. Heart size is normal. No pericardial or pleural effusion. Small sliding-type hiatal hernia. Liver, gallbladder, spleen, pancreas, bilateral adrenal glands and kidneys are normal. No abnormal bowel wall thickening or obstruction. The appendix is not visualized. No pericecal inflamm atory change to suggest acute appendicitis. 2.3 similar left adnexal cyst. Bladder, uterus and right adnexa are unremarkable. No free intraperitoneal gas or fluid. No pathologically enlarged abdominal or pelvic lymphadenopathy. Mild lower thoracic spondylosis. Mild bilateral sacroiliitis with a few small erosions and subcortical sclerosis, left greater than right. IMPRESSION: 1. 2.3 similar left adnexal cyst. No other acute intra-abdominal/pelvic process. 2. Small sliding-type hiatal hernia. 3. Stable appearance of chronic asymmetric bilateral sacroiliitis, mild on the left and minimal on the right Reviewed, dictated and finalized at location A. IMPRESSION: 1. 2.3 similar left adnexal cyst. No other acute intra-abdominal/pelvic process . 2. Small sliding-type hiatal hernia. 3. Stable appearance of chronic asymmetric bilateral sacroiliitis, mild on the left and minimal on the right
--- OUTSIDE RECORDS SUMMARY | 2025-03-11 07:55 | XMS_ITS | Clinical Summary ---
Author Organization [facility] Address [address] [place] [address] Care Team Providers Care Forest Botany Instructor Name Role Phone Patricia Nicolas LCSW Unavailable Unavailabl e None, Physician Primary Care Provider Unavailabl e Source Comments [facility],non-owned Affiliates and Associated Physician Practices is amultiple site organization consisting of ambulatory clinics and hospital sitesin [place], [place], [place] and [place]. This disclosure is being madepursuant to the Care Everywhere program and may not contain all information available regarding this patient. Last updated 18.[facility] Allergies Active Allergy Reactions Criticality Noted Date [...] medical care, and heating? Somewhat hard 02/17/[address] [facility] [place] of Occupat ional Health - Occupational Stress [...] place to sleep or slept in a chcf (including now)? No 02/17/2023 [place] Depression Scale Answer Date Recorded [place] Depression Scale Total 5 09/19/2022 The thought [...] (2 of 2 - PCV) 12/17/2020 12/18/2019 DEPRESSION SCREENING 05/13/2024 HPV VACCINE (1 - 3-dose SCDM series) 2024 COVID-19 VACCINE (3 - 2024-2 6 season) 2025 07/06/2021, 05/22/2021 INFLUENZA VACCINE (#1) 2025 DTAP/TDAP/TD VACCINES (2 - T d or Tdap) 12/17/2029 12/18/2019 ZOSTER VACCINE (1 of 2) 08/24/2047 HIV SCREENING Completed 11/05/2019, 06/17/2019 HEPATITIS C SCREENING Completed 12/16/2019 HIB VACCINE Aged Out No longer eligi ble based on patient's age to complete this topic MENINGOCOCCAL (Group B) VACCINE SHARED DECISION-MAKING Aged Out No longer eligible based on patient's age to complete this topic MENINGOCOCCAL GROUPS A/C/Y/W VACCINE Aged Out No longer eligible b ased on patient's age to complete this topic Insurance [facility] [id number] Advance Directives * Full Code (Latest Code Status on File) Date Activated Date Inactivated Comments 10/13/2018 4:37 PM 10/17/2018 1:57 PM * Full Code Date Activated Date Inactivated Comments 10/12/2018 8:22 AM 10/13/2018 4:37 PM * Full Code Date Activated Date Inactivated Comments 10/12/2018 8:22 AM 10/12/2018 8:22 AM Care Teams Forest Botany Instructor Relationship Specialty Start Date End Date None, Physician [address] [place] [address] PCP - General 02/17/23 Patricia Nicolas LCSW Outpatient Forestry Crew Chief 12/25/22
--- OUTSIDE RECORDS SUMMARY | 2025-03-11 07:55 | XMS_ITS | Encounter Summary ---
Author Organization [facility] Address [address] [place] [id number] Care Team Providers Care Pig Handler Name Role Phone None, Provider MD Primary Care Provider Unavaila ble None, Provider MD Primary Care Provider Unavaila ble Encounter Details Date Type Department Care Team (Late st Contact Info) Description 12/22/2019 Hospital Follow-up Call [facility] [place] [address] Paula Castle RN Social History Tobacco Use Types Packs/Day Years Used Date Smoking Tobacco: Every Day Cigarettes Smokeless Tobacco: Never Alcohol Use Standard Drinks/Week Comments Not Currently 0 (1 standard drink = 0.6 oz pur e alcohol) Humiliation, Afraid, Rape, and Kick questionnair e Answer Date Recorded Fear of Current or Ex-Partner No Emotionally Abused No 12/16/2019 Physically Abused No 12/16/2019 Sexually Abused No 12/16/2019 Overall Financial Resource Strain (CARDIA) Answe r Date Recorded Difficulty of Paying Living Expenses Somewhat mckeon rd 12/16/2019 Hunger Vital Sign Answer Date Recorded Worried About Running Out of Food in the Last Ye ar Sometimes true 12/16/2019 Ran Out of Food in the Last Year Not on file 12/16/2019 Comments No Sex and Gender Information Value Date Recorded Sex Assigned at Not on file Legal Sex Female 7:19 PM CDT Gender Identity Not on file Sexual Orientation Not on file COVID-19 Exposure Response Date Recorded In the last month, have you been in contact with someone who was confirmed or suspected to have Coronavirus / COVID-19? No / Unsure 12/16/2019 7:33 PM CDT documented as of this encounter Functional Status * RETIRED Are you deaf or do you have serious difficulty hearing Answer Date of Assessment Author Status No 12/16/2019 9:10 PM CDT Activ e * RETIRED Are you blind or do you have serious difficulty seeing, even when wearing glasses? Answer Date of Assessment Author Status No 12/16/2019 9:10 PM CDT Activ e * Do you have serious difficulty walking or climbing stairs? Answer Date of Assessment Author Status No 12/16/2019 9:10 PM CDT Sherlyn Urena RN Active * Do you have difficulty dressing or bathing? Answer Date of Assessment Author Status No 12/16/2019 9:10 PM CDT Sherlyn Urena RN Active * Because of a physical, mental, or emotional condition, do you have difficulty doing errands alone such as visiting a doctor's office or shopping? Answer Date of Assessment Author Status No 12/16/2019 9:10 PM [place]ON[place] Sherlyn Urena RN Active documented as of this encounter Mental Status * Because of a physical, mental, or emotional condition, do you have serious difficulty concentrating, remembering, or making decisions? Answer Entry Date Author Status No 12/16/2019 9:10 PM CDT Sherlyn Urena RN Active documented in this encounter Plan of Treatment Not on file documented as of this encounter Visit Diagnoses Not on filedocumented in this encounter Care Teams Pig Handler Relationship Specialty Start Date End Date None, ProviderMD PCP - General 12/08/19 08/03/22 None, ProviderMD PCP - General UNKNOWN PHYSICIAN SPECIALTY 08/04/22 documented as of this encounter
--- OUTSIDE RECORDS SUMMARY | 2025-03-11 07:56 | XMS_ITS | Clinical Summary ---
Author Organization [facility] Address [facility] [place] [address] Care Team Providers Care Communications Media Professor Name Role Phone None, Provider MD Primary Care Provider Unavaila ble Allergies Active Allergy Reactions Criticality Noted Date Comments Promethazine Hives 12/16/2019 Medications ferrous sulfate EC 325 (65 Fe) MG tablet Take 1 tablet (325 mg total) by mouth 2 (two) times daily with meals. 1 tablet/day with 4 ounces of orange juice, if does not upset stomach or constipate take this twice/day 60 tablet 0 Active hydrOXYzine (VISTARIL) 25 MG capsule Take 1-2 capsules (25-50 mg total) by mouth 4 (four) times daily as needed for Itching or Anxiety (insomnia, nausea or pain). 30 capsule 2 0 Active HYDROcodone-yazan taminophen (NORCO) 5-325 MG tabletIndicatio ns:Acute Pain < 3 Day Supply Take 1 tablet by mouth every 6 (six) hours as needed for Pain. Indications: Acute Pain < 3 Day Supply 8 tablet 0 Active metoclopramide (REGLAN) 5 MG tablet Take 1 tablet (5 mg total) by mouth 4 (four) times daily as needed (nausea or vomiting not alleviated by other medications). 20 tablet 3 Active Active Problems Problem Noted Date Diagnosed Date Normal labor and delivery 12/16/2019 Comments Yes Immunizations Immunization Administration Dates Next Due Pneumococcal (Pneumovax 23) 12/18/2019 Tdap (Boostrix) 12/18/2019 Family History Medical History Relation Comments Other Brother born with 1 kidn ey schizophrenia Father Other Sister born with 1 arm Relation Status Comments Brother Alive Father Alive Mother Alive Sister Alive Social History Tobacco Use Types Packs/Day Years Used Date Smoking Tobacco: Every Day Cigarettes Smokeless Tobacco: Never Tobacco Cessation:Ready to Q uit: No Alcohol Use Standard Drinks/Week Comments Not Currently [...] Last Year Not on file 12/16/2019 Comments Yes Sex and Gender Information Value Date Recorded Sex Assigned at Not on file Legal Sex Female 7:19 PM CDT Gender Identity Not on file Sexual Orientation Not on file Last Filed Vital Signs Vital Sign Reading Time Taken Comments Blood Pressure 113/67 08/04/2022 5:37 AM CDT Pulse 85 08/04/2022 5:37 AM CDT Temperature 36.3 C (97.4 F) 08/04/2022 1:22 AM CDT Respiratory Rate 19 08/04/2022 1:49 AM CDT Oxygen Saturation 96% 08/04/2022 5:37 AM CDT Inhaled Oxygen Concentration - - Weight 70.3 kg (155 lb) 08/04/2022 1:22 AM CDT Height 157.5 cm (5' 2) 08/04/2022 1:22 AM CDT Body Mass Index 28.35 08/04/2022 1:22 AM CDT Plan of Treatment Health Maintenance Due Date Last Done Comments Annual Physical 2000 Hepatitis B Vaccines (1 of 3 - 19+ 3-dose series) 2016 Pneumococcal Vaccine: Pediat rics (0 to 5 Years) and At-Risk Patients (6 to 49 Years) (2 of 2 - PCV) 12/17/2020 12/18/2019 Cervical Cancer Screening Pa p Smear (Age 21 to 29) Every 3 Years 10/12/2021 10/12/2018 Cervical Cancer Screening 10/12/2021 HPV Vaccines (1 - 3-dose SCD M series) 2024 COVID-19 Vaccine (1 - 2024-2 6 season) 2025 Influenza Adult (#1) 2025 DTaP, Tdap and Td Vaccines ( 2 - Td or Tdap) 12/17/2029 12/18/2019 RSV Immunization or 60+ Years (1 - 1-dose 75+ series) 2072 Chlamydia Screening Females ages 16-24 Discontinued 10/12/2018 Hepatitis C Completed 12/16/2019 Hepatitis A Vaccines Aged Out No long er eligible based on patient's age to complete this topic Meningococcal B Vaccine Aged Out No l onger eligible based on patient's age to complete this topic Meningococcal Vaccine Aged Out No tisha austin eligible based on patient's age to complete this topic RSV Immunizations Under 20 Months Aged Out No longer eligible based on patient's age to complete this topic Procedures Procedure Name Priority Date/Time Associated Diagnosis Comments HEPATITIS C ANTIBODY Routine 12/16/2019 8:30 PM CDT from Last 3 Months or Most Recently Relevant to Health Maintenance Results * HEPATITIS C ANTIBODY (12/16/2019 8:30 PM CDT) HEPATITIS C AB NON-REACTI VE NON-REACTI VE 12/17/2019 5:15 AM CDT [facility] 12/16/2019 8:30 PM CDT Melissa Nielson MD LABORATORY Final Result [facility] [address] [place] [address], [place] [phone] from Last 3 Months or Most Recently Relevant to Health Maintenance [place] [address] Advance Directives * Full Code (Latest Code Status on File) Date Activated Date Inactivated Comments 12/16/2019 8:43 PM 12/17/2019 1:27 AM Care Teams Communications Media Professor Relationship Specialty Start Date End Date None, Provider, MD PCP - General UNKNOWN PHYSICIAN SPECIALTY 08/04/22
--- OUTSIDE RECORDS SUMMARY | 2025-03-11 07:56 | XMS_ITS | Clinical Summary ---
Author Organization [facility] Address [address] [place] [address] Phone Care Team Providers Care Non Clinical Advisor Name Role Phone Unavailable Primary Care Provider [...] Nicotine abuse Routine general medical examination at [facility] Family History Relation Name Status Comments [...] on file Legal Sex Female 5:39 PM PHARMACY TECHNICIAN TRAINEE Gender Identity Not on file Sexual Orientation Not on file Last Filed Vital Signs Vital Sign Reading Time Taken Comments Blood Pressure 116/70 04/25/2018 8:49 AM PHARMACY TECHNICIAN TRAINEE Pulse 76 04/25/2018 8:49 AM PHARMACY TECHNICIAN TRAINEE Temperature 36.1 C (97 F) 04/25/2018 8:49 AM PHARMACY TECHNICIAN TRAINEE Respiratory Rate 18 04/25/2018 8:49 AM PHARMACY TECHNICIAN TRAINEE Oxygen Saturation 97% 04/25/2018 8:49 AM PHARMACY TECHNICIAN TRAINEE Inhaled Oxygen Concentration - - Weight 48.1 kg (106 lb) 04/23/2018 11:33 AM PHARMACY TECHNICIAN TRAINEE Height 157.5 cm (5' 2) 04/23/2018 11:33 AM PHARMACY TECHNICIAN TRAINEE Body Mass Index 19.39 04/23/2018 11:33 AM PHARMACY TECHNICIAN TRAINEE Plan of Treatment Health Maintenance Due Date Last Done Comments DTAP/TDAP/TD VACCINES (1 - Tdap) 2016 HEPATITIS B VACCINES (1 of 3 - 19+ 3-dose series) 08/11 CERVICAL CANCER SCREENING 2018 HPV/Cotest (21-29) 2018 PAP SMEAR 2018 HPV VACCINES (1 - 3-dose SCDM series) 2024 INFLUENZA VACCINE (#1) 2024 Advance Directives For more information, please contact: [phone] * Full Code (Latest Code Status on File) Date Activated Date Inactivated Comments 04/23/2018 12:49 PM 04/25/2018 2:47 PM
--- OUTSIDE RECORDS SUMMARY | 2025-03-11 07:56 | XMS_ITS | Clinical Summary ---
Author Organization [facility] [address] Address [address] [place] [address] Phone Care Team Providers Care Induction Heat Treater Name Role Phone No, Physician Primary Care Provider [phone] Salome Urena MD Unavailable [phone] Allergies Active Allergy Reactions Criticality Noted Date Comments Promethazine Hives Medium 04/26/2021 Medications albuterol HFA (PROVENTIL HFA,VENTOLIN HFA,PROAIR HFA) 90 mcg/actuation inhaler Inhale 2 puffs every 4 (four) hours as needed for wheezing or shortness of breath 3 Active ferrous sulfate 325 mg (65 mg of elemental iron) tablet Take 1 tablet (325 mg total) by mouth daily with breakfast 4 Active ARIPiprazole (ABILIFY) 10 mg tabletIndications: Bipolar Disorder Take 1 tablet (10 mg total) by mouth daily 30 tablet 5 Active docusate sodium (COLACE) 100 mg capsuleIndications :constipation,Stoo l Softener Take 1 capsule (100 mg total) by mouth 2 (two) times a day 30 capsule 5 Active gabapentin (NEURONTIN) 300 mg capsule Take 1 capsule (300 mg total) by mouth nightly 30 capsule 5 Active ibuprofen (ADVIL,MOTRIN) 600 mg tabletIndications: Pain Take 1 tablet (600 mg total) by mouth every 6 (six) hours as needed for pain 30 tablet 5 Active ondansetron ODT (ZOFRAN-ODT) 4 mg disintegrating tabletIndications: Nausea and Vomiting Take 1 tablet (4 mg total) by mouth every 6 (six) hours as needed for nausea or vomiting 20 tablet 5 Active vit-iron fum-folic ac 27 mg iron- 800 mcg tabletIndications: Vitamin Deficiency Prevention Take 1 tablet by mouth daily 30 tablet 5 Active polyethylene glycol (MIRALAX) 17 gram/dose bulk powderIndications: constipation Take 17 g by mouth daily 289 g 5 Active dicyclomine (BENTYL) 20 mg tablet Take 1 tablet (20 mg total) by mouth 2 (two) times a day 20 tablet 5 01/16/20 26 Active ondansetron (ZOFRAN) 4 mg tablet Take 1 tablet (4 mg total) by mouth every 6 (six) hours 12 tablet 5 Active Active Problems Problem Noted Date Diagnosed [...] CDT - 01/15/2025 10:22 AM CDT Emergency [facility] Emergency Department [address] [place] [address] Andriy Corral MD Gastroenteritis (Primary Dx) Discharge Disposition: Discharge to home or self care 01/15/2025 7:51 AM CDT - 01/15/2025 11:59 PM CDT Hospital Encounter [facility] Emergency, Room R Discharge Disposition: Discharge to home or self care from Last 3 Months Immunizations Immunization Administration Dates Next Due MMR 06/24/2024 Medical History Medical History Date Comments Bipolar depression (HCC) Social History Tobacco Use Types Packs/Day Years Used Date Smoking Tobacco: Every Day Cigarettes 0.5 16.8 Started: 2008 Passive Smoke Exposure: Current Smokeless Tobacco: Never Tobacco Cessation:Ready to Q uit: No; Counseling Given: Yes Comments:10 cigarettes per day Alcohol Use Standard Drinks/Week Comments Not Currently 0 (1 standard drink = 0.6 oz pur e alcohol) [facility] Utilities Answer Date Recorded In the past 12 months has e [employer], [employer], oil, or water Doormen. threatened to shut off services in your [...] week 06/22/2024 How often do you attend [facility] or [facility]? Never 06/22/2024 Do you belong to any clubs o r organizations such as voodoo groups, unions, fraternal or athletic groups, or [...] Date Recorded PHQ-2 Total Score 0 06/22/2024 [facility] - Occupational Stress Questionnaire Answer Date Recorded [...] place to sleep or slept in a mcc (including now)? No 03/25/2023 [place] Depression Scale Answer Date Recorded [place] Depression Scale Total 3 06/22/2024 The thought [...] any time in the past 12 m [facility], were you homeless or living in a mcc (including now)? Yes 06/22/2024 Personal Safety Answer Date Recorded Have you ever been in or are you currently in a harmful physical or emotional relationship or is someone making you feel afraid or unsafe? 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 Gender Identity Not on file Sexual Orientation [...] ont Epidur al N Livin g Delivery Location:[place] 9 SAB 8w0 d 2019 Term 40w 2d 6h 39m 6h 15m/0h 18m/0h 06m 2.579 kg (5 lb 11 oz) M Vag-Sp ont Epidur al N Livin g 8 9 ISABEL OSUNA MD Complications: care, History of hemorrhage Delivery Location:[facility]) 2022 Term 40w 4d 9h 08m 8h 35m/0h 28m/0h 05m 2.693 kg (5 lb 15 oz) M Vagina l Epidur al N Livin g 8 9 Camde andrew reece, Som taveras MD Complications:None Delivery Location:[facility] ([facility]) 2024 Term 38w 2d 0h 09m 0h 09m/ 2.214 kg (4 lb 14.1 oz) M Vagina l None N Livin g 7 9 Hari terry, Peña hood MD Complications:None Delivery Location:This [...] Acceptable QC Control Line Acceptable Urine 01/15/2025 8:2 4 AM CDT Andriy Corral MD POINT OF CARE TEST ORDERABLES Final Result * (ABNORMAL) Urinalysis reflex to microscopic and culture Urine (01/15/2025 8:13 AM CDT) Color, ur Yellow Yellow Clarity, ur Clear Clear [facility] ([place]) Specific gravity, ur 1.026 1.003 - 1.030 [facility] ([place]) pH, urine 6.5 [facility] ([place]) Comment: Interpretive Data U rine pH is affected by diet, medications, systemic acid-base disturbances, and renal tubular function. pH may affect urinary stone formation. For example, urine pH below 6.0 may help reduce the tendency for calcium phosphate stones and pH greater than 6.0 may reduce the tendency for uric acid stone formation. Source: [facility] [place] Current Interpretive Data was last revised on 2017 Protein, ur ql 1+(A) Negative [facility] ([place]) Glucose, ur ql Negative Negative [facility] ([place]) Ketones, ur 1+(A) Negative [facility] ([place]) Bilirubin, ur Negative Negative [facility] ([place]) Blood, ur Trace(A) Negative [facility] ([place]) Urobilinogen, ur 2.0(A) <2.0 mg/dL [facility] ([place]) Nitrite, ur Negative Negative [facility] ([place]) Leukocyte esterase, ur Negative Negative [facility] ([place]) UA reflex comment Reflex to microscopic UA will be performed. [facility] ([place]) Urine 01/15/2025 8:13 AM CDT 01/15/2025 8:45 AM CDT Andriy Corral MD LAB MICROBIOLOGY - GENERAL ORD ERABLES Final Result Performing Organization Address [facility]/ZIP Co de Phone Number [facility] [address] [facility] [place] [address] * (ABNORMAL) Urinalysis, microscopic only (01/15/2025 8:13 AM CDT) WBC, ur 0-5 0 - 5 /HPF RBC, ur 3-5(A) 0 - 2 /HPF [facility] ([place]) Epithelial cells, squamous, ur 6-10(A) 0 - 5 /HPF [facility] ([place]) Mucous, ur Present(A) [facility] ([place]) Culture Reflex Comment Reflex conditions for urine culture (WBC >10) not met. [facility] ([place]) Urine 01/15/2025 8:13 AM CDT 01/15/2025 8:45 AM CDT Andriy Corral MD LAB URINE ORDERABLES Final Res ult Performing Organization Address City/[facility]/ZIP Co de Phone Number [facility] 1 [facility] [place] [address] * eGFR (01/15/2025 8:12 AM CDT) eGFR >90 >=60 mL/min/1. 73 m2 Comment: [...] MD LAB BLOOD ORDERABLES Final Res ult [facility] 1 [facility] [place] [address] * (ABNORMAL) Differential, auto (01/15/2025 8:12 AM CDT) Neutrophil abs 7.56(H) 1.50 - 6.50 K/cumm [...] Neutrophil pct 73.2 % [facility] ([place]) Comment: Interpretive Data Percent cell count reference [...] revised on 2017. Basophil pct 0.4 % [facility] ([place]) Comment: Interpretive Data Percent cell count reference ranges are not reported, since discordance with absolute values may lead to misinterpretation of CBC data. Current Interpretive Data was last revised on 2017. Blood 01/15/2025 8:12 AM CDT 01/15/2025 8:17 AM CDT us Andriy Corral MD LAB BLOOD ORDERABLES Final Res ult [facility] ([place]) 1 [facility] [place], [place] [id number] * (ABNORMAL) CBC with auto differential (01/15/2025 8:12 AM CDT) WBC 10.34(H) 3.80 - 9.90 K/cumm Hgb 13.0 11.9 - 15.5 g/dL [facility] ([place]) Hct 39.6 35.6 - 45.5 % [...] Res ult [facility] ([place]) 1 [facility] [place] [address] * Lipase (01/15/2025 8:12 AM CDT) Lipase 26 10 - 99 Units/L [facility] Blood Venous blood specimen / Unknown 01/15/2025 8:12 AM CDT 01/15/2025 8:17 AM CDT Andriy Corral MD LAB BLOOD ORDERABLES Final Res ult [facility] ([place]) 1 [facility] [place] [address] * Comprehensive metabolic panel (01/15/2025 8:12 AM CDT) Sodium 136 135 - 145 mmol/L [facility] ([place]) Potassium, pl 3.8 3.3 - [...] BLOOD ORDERABLES Final Res ult [facility] ([place]) 1 [facility] [place] [address] from Last 3 Months Insurance PLAN [id number] [place] [address] [place] Advance Directives For more information, please contact: [phone] * Full Code (Latest Code Status on [...] n case of cardiopulmonary arrest Care Teams Induction Heat Treater Relationship Specialty Start Date End Date No, Physician PCP - General 04/26/17 Salome Urena MD [address] [place] [address] [address] [place] [id number] Consulting Physician Obstetrics and Gynecology 03/26/23
[2025-03-11 08:03] VITALS: BP 123/73; PULSE 82; RESP 18; TEMP 36.3; O2SAT 98
--- OUTSIDE RECORDS SUMMARY | 2025-03-11 08:05 | XMS_ITS | Data Portability ---
Author Organization [facility] JUAN FRocael [facility] Address [address] [place] [address] Care Team Providers Care Catering Server Name Role Phone JULIETA JONES Administrative Dietitian [phone] Assessment Encounter Date Assessment Date Assessment LastModified by Organization Details LastModified Time 07/06/2024 07/06/2024 Presents today for first PP appointment, delivered vaginally on 06/22/24 [email or web address] Not available 07/06/2024 10:15:43 Plan of Treatment Reminders Order Date Submit Date Provider Last Modified By Organization Details Last Modified Time Details Appointments None recorde d. Lab urinaly sis, dipstic k 2024 025 [email or web address] In-Office Order, Internal Use Only DO Not Attach Compendium DO Not Attach Compendium, Do Not Delete/merge, [id number] 5 10:42:09 urinaly sis, dipstic k 2023 024 [email or web address] In-Office Order, Internal Use Only DO Not Attach Compendium DO Not Attach Compendium, Do Not Delete/merge, [id number] 14:24:07 vaginal pathoge ns panel, [place]+pro be, vaginal fluid 2023 024 EZEQUIEL [facility], [address] [place] [address], [address], [place], [address], 4 08:29:18 pregnan cy test, urine 2023 024 [email or web address] In-Office Order, Internal Use Only DO Not Attach Compendium DO Not Attach Compendium, Do Not Delete/merge, [id number] 4 17:13:06 prenata l panel 2023 024 [facility]QUIEL [facility], [address], [address], [place], [address], 4 10:15:00 varicel la zoster virus IgG Ab, QN, IA, serum 2023 024 [facility]IEL [facility], [address], [address], [place], [address], 4 10:15:06 drug screen, 14 drugs (detect imed), urine 2023 024 [facility]EL [facility], [address], [address], [place], [address], 4 10:15:03 aneuplo idy risk and X & Y analysi s, chromos ome specifi c circula ting cell free (CCF) DNA, materna l serum 2023 024 mmeti [facility], [address], [address], [place], [address], 4 17:05:31 culture , urine [address] [facility], [address], [place], [address], 3 20:09:11 drug screen, urine [address] [facility], [address], [place], [address], 3 20:09:04 hemoglo bin S (hbs), presenc e, blood 2022 023 [facility], [address], [address], [place], [address], 3 20:09:08 varicel la zoster virus IgG Ab, QN, IA, serum 2022 023 [facility], [address], [address], [place], [address], 20:09:12 Hepatit is C IgG Ab, qual, serum 2022 023 [facility], [address], [address], [place], [address], 3 20:09:06 CBC w/ auto diff 2022 023 [facility], [address], [address], [place], [address], 3 03:08:47 RPR (rapid plasma reagin) , serum 2022 023 E[facility]EL [facility], [address], [address], [place], [address], 3 20:09:11 HBsAg (hepati tis B surface Ag), EIA, serum 2022 023 E[facility]QU[facility]EL [facility], [address], [address], [place], [address], 3 20:09:10 rubella IgG Ab, quant immunoa ssay, serum or plasma 2022 023 E[facility], [address], [place], [address], 3 20:09:09 cf (cystic fibrosi s) profile 2022 023 [facility], [address], [address], [place], [address], 3 20:09:07 abo group + rh type, blood [address] [facility], [address], [place], [address], 3 20:09:09 antibod y screen, serum or plasma [address] [facility], [address], [place], [address], 3 20:09:08 HIV 1 + 2, meaning ful use set [address] [facility], [address], [place], [address], 3 20:09:12 chlamyd ia trachom atis + neisser ia gonorrh oeae + trichom onas vaginal is DNA panel, [place]+pro be, unspeci fied specime n [address] [facility], [address], [place], [address], 3 20:09:07 urinaly sis, dipstic k 2022 023 [email or web address] In-Office Order, Internal Use Only DO Not Attach Compendium DO Not Attach Compendium, Do Not Delete/merge, 3 17:07:26 pregnan cy test, urine 2022 023 [email or web address] In-Office Order, Internal Use Only DO Not Attach Compendium DO Not Attach Compendium, Do Not Delete/merge, 3 17:07:26 HBsAg (hepati tis B surface Ag), EIA, serum 2021 022 [facility], [address] [place] [address], [address], [place], [address], 2 10:11:43 hepatit is C Ab, signal- to-cuto ff, serum or plasma 2021 SHARON [facility], [address] [facility] [address], [address], [place], [address], 10:11:43 RPR (rapid plasma reagin) , serum 2021 [facility]EL [facility], [address] [place] [address] [address], [address], [place], [address], 10:11:44 HIV 1 + 2, meaning ful use set 2021 [facility], [address] [facility] [address], [address], [place], [address], 10:11:44 vaginal pathoge ns panel, [place]+pro be, vaginal fluid 2021 SH[facility]ON [facility], [address] [place] [address], [address], [place], [address], 10:11:42 pregnan cy test, urine 2021 [email or web address] In-Office Order, Internal Use Only DO Not Attach Compendium DO Not Attach Compendium, Do Not Delete/merge, [id number] 2 12:42:15 Referral pharmac ist referra l 2023 024 [email or web address] So Weinberg MD, 4 [facility] , [address], [place], [address], 4 16:40:26 Procedures None recorde d. Surgeries None recorde d. Imaging US, obstetr ic, materna l evaluat ion + anatomy - Dating/ Anatomy US, LMP September 17, 20232023 024 [facility], [address], [place], [address], 4 18:01:13 Medication Orders albuter ol sulfate HFA 90 mcg/act uation aerosol inhaler 2024 025 [facility] #[id number], [address], [place], [id number], 5 16:15:40 docusat e sodium 100 mg tablet 2023 024 [facility] #[id number], [address], [place], [place], [id number], 4 17:13:05 pyridox ine (vitami n B6) 25 mg tablet 2023 024 [facility] #65973, [address], [place], [place], [id number], 4 17:13:04 Unisom (doxyla mine) 25 mg tablet 2023 024 [facility] #59615, [address], [place], [place], [id number], 4 17:13:05 Prenata l 28 mg iron-80 0 mcg tablet 2023 024 [facility] #99090, [address], [place], [place], [id number], 4 17:13:04 cephale janny 500 mg capsule 2022 023 [email or web address] [facility] #49347, [address], [place], [place], [id number], 4 16:25:23 sulfame thoxazo le 800 mg-trim ethopri m 160 mg tablet 2021 022 [email or web address] [facility], [address] [facility] [address], [place], [place], [id number], 3 16:25:37 Depo-Pr overa 150 mg/mL intramu scular suspens ion 2021 022 [email or web address] [facility], [address] [facility] [address], [place], [place], [id number], 3 16:24:14 Patient TargetsNo targets recorded. Patient Instructions Encounter Date Encounter Id Patient Instructions Last Modified By Organization Details Last Modified Time 09/06/2022 [id number] NOB ACOG visit w/nurse for education, WOMBSS, [...] Care Plan WOMBSS: Screening Tools [employer]/[facility] rosa isela Navigator [place] & [facility] [employer] Patient Incentive Notification Program NOB scheduled w/Provider Micah 09/13/22 @ 7:30 AM Patients questions answered and patient verbalized understanding of education provided this visit. CRYSTAL Whyte Not available 09/06/2022 17:21:58 07/06/2024 [id number] Care at Home With Your Baby: Care Instructions [email or web address] Not available 07/06/2024 10:42:09 learning about asthma [email or web address] Not available 07/06/2024 10:42:09 Attending Physician Attestation [...] Negati ve negati ve Not Available [facility] ([facility]) [address] [place], [address], 07/01/2021 10:11:42 06/29/19 22 07/01/2021 CT, NG, TRICH VAG BY [place] gonococcus by [place] Negati ve negati ve Not Available [facility] ([facility]) [address] [place], [address], 07/01/2021 10:11:42 06/29/19 22 07/01/2021 CT, NG, TRICH VAG BY [place] trich vag by [place] Negati ve negati ve Not Available [facility] ([facility]) [address] [place], [address], 07/01/2021 10:11:42 06/29/19 22 06/30/2021 HCV ANTIB LEONORA RFX TO QUANT PCR HCV Ab <0.1 s/co_ ratio 0.0-0. 9 Not Available [facility] ([facility]) [address] [place], [address], 07/01/2021 10:11:43 06/29/19 22 06/30/2021 HCV ANTIB LEONORA RFX TO QUANT PCR interpretati on: Commen t Negat yulia Not infec arun with HCV, unles s recen t infec tion is suspe cted or other evide nce exist s to indic ate HCV infec tion. Not Available [facility] ([facility]) [address] [facility], [place], [address], 07/01/2021 10:11:43 06/29/19 22 07/01/2021 HEP B SURFA CE AG HBsAg screen Confir m. indica arun negati ve Not Available [facility] ([facility]) [address] [place], [address], 07/01/2021 10:11:43 06/29/19 22 07/01/2021 HEP B SURFA CE AG HBsAg Perfor med Not Available [facility] ([facility]) [address] [facility], [place], [address], 07/01/2021 10:11:43 06/29/19 22 06/30/2021 HIV AB/P2 4 AG WITH REFLE X HIV Ab/P24 Ag screen Non Reacti ve non reacti ve HIV Negat yulia HIV-1 /HIV- 2 antib odies and HIV-1 p24 antig en were NOT detec arun. There is no labor atory evide nce of HIV infec tion. Not Available [facility] ([facility]) [address] [facility], [place], [address], 07/01/2021 10:11:44 06/29/19 22 06/30/2021 RPR RPR Non Reacti ve non reacti ve Not Available [facility] ([facility]) [address] [place], [address], 07/01/2021 10:11:44 06/29/19 22 06/29/2021 pregn angel test, urine HCG negati ve Not Available In-Office Order Internal Use Only DO Not Attach Compendium DO Not Attach Compendium, Do Not Delete/merge, [id number] 06/29/2021 12:31:12 08/11/19 23 08/11/2022 HCG,B ETA SUBUN IT, QNT HCG,beta subunit,qnt, serum 96752 mIU/m L Femal e (Non- pregn ant) 0 - 5 (Post menop ausal ) 0 - 8 Femal e (Preg nant) Weeks of Gesta tion 3 6 - 71 4 10 - 750 5 067 - 2705 6 737 - 70566 7 2228 -1621 63 8 71768 -5574 71 9 51569 -2336 10 10 87182 -3426 77 12 77802 -1999 12 14 98838 - 86728 15 85356 - 76343 16 4739 - 22340 17 8649 - 29138 18 9117 - 46565 Resul ts confi rmed on dilut ion. Alphonso ECLIA metho dolog y Not Available [facility] ([facility]) [address] [facility], [place], [address], 08/11/2022 09:37:42 09/07/1909/06/2022 CBC WITH DIFFE RENTI AL/PL ATELE T WBC 9.0 K/uL 3.4-10 .8 Not Available [facility] [address] [place], [address], 09/07/2022 03:08:47 09/07/1909/06/2022 CBC WITH DIFFE RENTI AL/PL ATELE T RBC 4.0 M/uL 4.2-5. 4 below low normal Not Available [facility] [address] [place], [address], 09/07/2022 03:08:47 09/07/19 23 09/06/2022 CBC WITH DIFFE RENTI AL/PL ATELE T hemoglobin 12.0 g/dL 11.5-1 5.5 Not Available [facility] [address] [place], [address], 09/07/2022 03:08:47 09/07/1909/06/2022 CBC WITH DIFFE RENTI AL/PL ATELE T hematocrit 35.7 % 36.0-4 8.0 below low normal Not Available [facility] [address] [place], [address], 09/07/2022 03:08:47 09/07/19 23 09/06/2022 CBC WITH DIFFE RENTI AL/PL ATELE T MCV 90 fL 80-95 Not Available [facility] [address] [place], [address], 09/07/2022 03:08:47 09/07/19 23 09/06/2022 CBC WITH DIFFE RENTI AL/PL ATELE T MCH 30 pg 27-32 Not Available [facility] [address] [place], [address], 09/07/2022 03:08:47 09/07/19 23 09/06/2022 CBC WITH DIFFE RENTI AL/PL ATELE T MCHC 34 g/dL 32-36 Not Available [facility] [address] [place], [address], 09/07/2022 03:08:47 09/07/19 23 09/06/2022 CBC WITH DIFFE RENTI AL/PL ATELE T RDW 11.9 % 11.5-1 4.5 Not Available [facility] [address] [place], [address], 09/07/2022 03:08:47 09/07/1909/06/2022 CBC WITH DIFFE RENTI AL/PL ATELE T platelets 282 K/uL 155-37 9 MPV 10.5 FL 8.9-1 2.7 N Not Available [facility] [address] [place], [address], 09/07/2022 03:08:47 09/07/19 23 09/06/2022 CBC WITH DIFFE RENTI AL/PL ATELE T neutrophils 61.7 % 40.0-7 4.0 Not Available [facility] [address] [place], [address], 09/07/2022 03:08:47 09/07/19 23 09/06/2022 CBC WITH DIFFE RENTI AL/PL ATELE T lymphs 25.3 % 14.0-4 6.0 Not Available [facility] [address] [place], [address], 09/07/2022 03:08:47 09/07/19 23 09/06/2022 CBC WITH DIFFE RENTI AL/PL ATELE T monocytes 7.2 % 4.0-12 .0 Not Available [facility] [address] [place], [address], 09/07/2022 03:08:47 09/07/19 23 09/06/2022 CBC WITH DIFFE RENTI AL/PL ATELE T eos 4 % 0-5 Not Available [facility] [address] [place], [address], 09/07/2022 03:08:47 09/07/19 23 09/06/2022 CBC WITH DIFFE RENTI AL/PL ATELE T basos 0.6 % 0.0-1. 0 Not Available [facility] [address] [place], [address], 09/07/2022 03:08:47 09/07/19 23 09/06/2022 CBC WITH DIFFE RENTI AL/PL ATELE T neutrophils (absolute) 5.5 K/uL 1.4-7. 0 Not Available [facility] [address] [place], [address], 09/07/2022 03:08:47 09/07/19 23 09/06/2022 CBC WITH DIFFE RENTI AL/PL ATELE T lymphs (absolute) 2.3 K/uL 0.7-3. 1 Not Available [facility] [address] [place], [address], 09/07/2022 03:08:47 09/07/19 23 09/06/2022 CBC WITH DIFFE RENTI AL/PL ATELE T monocytes(ab solute) 0.6 K/uL 0.1-0. 9 Not Available [facility] [address] [place], [address], 09/07/2022 03:08:47 09/07/19 23 09/06/2022 CBC WITH DIFFE RENTI AL/PL ATELE T eos (absolute) 0.3 K/uL 0.0-0. 4 Not Available [facility] [address] [place], [address], 09/07/2022 03:08:47 09/07/19 23 09/06/2022 CBC WITH DIFFE RENTI AL/PL ATELE T baso (absolute) 0.1 K/uL 0.0-0. 3 Not Available [facility] [address] [place], [address], 09/07/2022 03:08:47 09/07/19 23 09/06/2022 CBC WITH DIFFE RENTI AL/PL ATELE T immature granulocytes 1.7 % Not Available [facility] Department [address] [place], [address], 09/07/2022 03:08:47 09/07/19 23 09/06/2022 CBC WITH DIFFE RENTI AL/PL ATELE T immature grans (abs) 0.2 K/uL Not Available [facility] Department [address] [place], [address], 09/07/2022 03:08:47 09/07/19 23 09/06/2022 CBC WITH DIFFE RENTI AL/PL ATELE T NRBC 0 % Not Available [facility] [address] [place], [address], 09/07/2022 03:08:47 09/07/19 23 09/13/2022 TOXAS SURE [...] and delta -8-te trahy droca nnabi nol. [facility] codon e 693 ng/mg creat [facility] morph one 78 ng/mg creat Dihyd rocod eine 61 ng/mg creat Norhy droco done >1408 ng/mg creat Sourc es of hydro codon e inclu de sched uled presc ripti on medic ation s. [facility] morph one, dihyd rocod eine and norhy droco done are expec arun metab olite s of hydro codon e. [facility] morph one and dihyd rocod eine are [...] francis consu ltati on, pleas e call . ===== ===== ===== ===== ===== ===== ===== ===== ===== ===== ===== ===== ===== === Not Available [facility] ([facility]) [address] [place], [address], 09/13/2022 20:09:04 09/07/19 23 09/13/2022 TOXAS SURE SELEC T 13 (MW) pdf . Not Available [facility] ([facility]) [address] [place], [address], 09/13/2022 20:09:04 09/07/19 23 09/07/2022 HCV ANTIB LEONORA RFX TO QUANT PCR HCV Ab Non Reacti ve nonrea ctive Not Available [facility] ([facility]) [address] [place], [address], 09/13/2022 20:09:06 09/07/19 23 09/08/2022 CT, NG, TRICH VAG BY [place] chlamydia by [place] Negati ve negati ve Not Available [facility] ([facility]) [address] [place], [address], 09/13/2022 20:09:07 09/07/19 23 09/08/2022 CT, NG, TRICH VAG BY [place] gonococcus by [place] Negati ve negati ve Not Available [facility] ([facility]) [address] [facility], [place], [address], 09/13/2022 20:09:07 09/07/19 23 09/08/2022 CT, NG, TRICH VAG BY [place] trich vag by [place] Negati ve negati ve Not Available [facility] ([facility]) [address] [place], [address], 09/13/2022 20:09:07 09/07/19 23 09/06/2022 CYSTI C FIBRO SIS PROFI LE comment: Commen t The assay provi tiki infor matio n inten ded to be used for mary er scree deonna in adult s of repro ducti ve age, as an aid in [facility] rn scree deonna, and as a confi rmato ry test for anoth er medic ally estab lishe d diagn osis in [facility] rns and child catherine. The test is not indic ated for use in diagn ostic testi ng, pre-i mplan tatio n scree deonna, or for any stand -ton e diagn ostic purpo ses witho ut confi rmati on by ano er medic ally estab lishe d diagn ostic produ ct or proce dure. Not Available [facility] ([facility]) [address] [place], [address], 09/13/2022 20:09:07 09/07/19 23 09/13/2022 CYSTI C [...] [facility] [place] [facility] susan at [phone] for a andreas ed repor t. Mutat [...] Joya h,PhD ,FAC G Not Available [facility] ([facility]) [address] [place], [address], 09/13/2022 20:09:07 09/07/19 23 09/13/2022 CYSTI C FIBRO SIS PROFI LE pdf . Not Available [facility] ([facility]) [address] [place], [address], 09/13/2022 20:09:07 09/07/19 23 09/07/2022 HB SOLU + RFLX FRAC hemoglobin (HGB) solubility Negati ve negati ve Not Available [facility] ([facility]) [address] [place], [address], 09/13/2022 20:09:08 09/07/19 23 09/07/2022 ANTIB LEONORA SCREE N antibody screen Negati ve negati ve Not Available [facility] ([facility]) [address] [place], [address], 09/13/2022 20:09:08 09/07/19 23 09/07/2022 ABO GROUP ING AND RHO(D ) TYPIN G ABO grouping O Not Available [facility]) [address] [place], [address], 09/13/2022 20:09:09 09/07/19 23 09/07/2022 ABO GROUP ING AND RHO(D ) TYPIN G Rh factor Positi ve Pleas e note: Prior recor ds for this patie nt's ABO / Rh type are not avail able for addit ional verif icati on. Not Available [facility] ([facility]) [address] [place], [address], 09/13/2022 20:09:09 09/07/19 23 09/07/2022 RUBEL LA ANTIB ODIES , IGG rubella antibodies, IgG 1.62 index immune >0.99 Non-i mmune <0.90 Equiv ocal 0.90 - 0.99 Immun e >0.99 Not Available [facility] ([facility]) [address] [facility], [place], [address], 09/13/2022 20:09:09 09/07/19 23 09/07/2022 HBSAG SCREE N HBsAg screen Negati ve negati ve Not Available [facility] ([facility]) [address] [place], [address], 09/13/2022 20:09:10 09/07/19 23 09/08/2022 URINE CULTU RE, ROUTI NE urine culture, routine Final report Not Available [facility] ([facility]) [address] [facility], [place], [address], 09/13/2022 20:09:11 09/07/19 23 09/08/2022 URINE CULTU RE, ROUTI NE result 1 No growth Not Available [facility] ([facility]) [address] [facility], [place], [address], 09/13/2022 20:09:11 09/07/19 23 09/07/2022 RPR, RFX QN RPR/C ONFIR M TP RPR Non Reacti ve nonrea ctive Not Available [facility] ([facility]) [address] [place], [address], 09/13/2022 20:09:11 09/07/19 23 09/07/2022 HIV AB/P2 4 AG WITH REFLE X HIV Ab/P24 Ag screen Non Reacti ve nonrea ctive HIV Negat yulia HIV-1 /HIV- 2 antib odies and HIV-1 p24 antig en were NOT detec arun. There is no labor atory evide nce of HIV infec tion. Not Available [facility] ([facility]) [address] [facility], [place], [address], 09/13/2022 20:09:12 09/07/19 23 09/07/2022 VARIC MIROSLAVA- [...] stage of disea se. Not Available [facility] ([facility]) [address] [facility], [place], [address], 09/13/2022 20:09:12 09/07/19 23 09/06/2022 pregn angel [...] DO Not Attach Compendium, Do Not Delete/merge, [id number] 09/06/2022 16:43:58 09/07/19 23 09/06/2022 urina lysis [...] 09/06/2022 urina lysis , dipst ick Specific [place] 1.020 Not Available In-Off ice Order Internal [...] 09/06/2022 urina lysis , dipst ick Color [place] Not Available In-Office Order Internal Use Only DO Not Attach Compendium DO Not Attach Compendium, Do Not Delete/merge, [id number] 09/06/2022 16:43:58 09/07/19 23 09/07/2022 INTER PRETA TION: interpretati on: Commen t Not infec arun with HCV unles s early or acute infec tion is suspe cted (whic h may be delay ed in an immun ocomp romis ed indiv idual ), or other evide nce exist s to indic ate HCV infec tion. Not Available [facility] ([facility]) [address] [facility], [place], [address], 09/13/2022 20:09:06 12/23/19 24 12/25/2023 NUSWA B VAGIN ITIS PLUS (VG+) atopobium vaginae LOW - 0 score Not Available [facility] ([facility]) [address] [facility], [place], [address], 12/25/2023 08:29:18 12/23/19 24 12/25/2023 NUSWA B VAGIN ITIS PLUS (VG+) bvab 2 LOW - 0 score Not Available [facility] ([facility]) [address] [facility], [place], [address], 12/25/2023 08:29:18 12/23/19 24 12/25/2023 NUSWA B [...] prese nce of BV. Not Available [facility] ([facility]) [address] [facility], [place], [address], 12/25/2023 08:29:18 12/23/19 24 12/25/2023 NUA B VAGIN ITIS PLUS (VG+) chanell albicans, [place] NEGATI VE negati ve Not Available [facility] ([facility]) [address] [facility], [place], [address], 12/25/2023 08:29:18 12/23/19 24 12/25/2023 NUA B VAGIN ITIS PLUS (VG+) chanell glabrata, [place] NEGATI VE negati ve Not Available [facility] ([facility]) [address] [facility], [place], [address], 12/25/2023 08:29:18 12/23/19 24 12/25/2023 NUA B VAGIN ITIS PLUS (VG+) trich vag by [place] NEGATI VE negati ve Not Available [facility] ([facility]) [address] [facility], [place], [address], 12/25/2023 08:29:18 12/23/19 24 12/25/2023 NUA B VAGIN ITIS PLUS (VG+) chlamydia trachomatis, [place] NEGATI VE negati ve Not Available [facility] ([facility]) [address] [facility], [place], [address], 12/25/2023 08:29:18 12/23/19 24 12/25/2023 NUA B VAGIN ITIS PLUS (VG+) neisseria gonorrhoeae, [place] NEGATI VE negati ve Not Available [facility] ([facility]) [address] [facility], [place], [address], 12/25/2023 08:29:18 12/23/19 24 12/23/2023 pregn angel test, urine HCG positi ve Not Available In-Office Order Internal Use Only DO Not Attach Compendium DO Not Attach Compendium, Do Not Delete/merge, [id number] 12/23/2023 16:24:14 02/20/2002/21/2024 INTER PRETA TION: interpretati on: Commen t Not infec arun with HCV unles s early or acute infec tion is suspe cted (whic h may be delay ed in an immun ocomp romis ed indiv idual ), or other evide nce exist s to indic ate HCV infec tion. Not Available [facility] ([facility]) [address] [facility], [place], [address], 02/26/2024 10:14:59 02/20/2002/21/2024 PREGN ANGEL, INITI AL SCREE N HBsAg screen NEGATI VE negati ve Not Available [facility] ([facility]) [address] [facility], [place], [address], 02/26/2024 10:14:59 02/20/2002/21/2024 PREGN ANGEL, INITI AL SCREE N HCV Ab NON REACTI VE nonrea ctive Not Available [facility] Lab) [address] [facility], [place], [address], 02/26/2024 10:14:59 02/20/2002/21/2024 PREGN ANGEL, INITI AL SCREE N RPR NON REACTI VE nonrea ctive Not Available [facility] ([facility]) [address] [place], [address], 02/26/2024 10:14:59 02/20/2002/21/2024 PREGN ANGEL, INITI AL SCREE N rubella antibodies, IgG 1.49 index immune >0.99 Non-i mmune <0.90 Equiv ocal 0.90 - 0.99 Immun e >0.99 Not Available [facility] ([facility]) [address] [facility], [place], [address], 02/26/2024 10:14:59 02/20/2002/21/2024 PREGN ANGEL, INITI AL SCREE N ABO grouping O Not Available [facility] ([facility]) [address] [facility], [place], [address], 02/26/2024 10:14:59 02/20/2002/21/2024 PREGN ANGEL, INITI AL SCREE N Rh factor POSITI VE Pleas e note: Prior recor ds for this patie nt's ABO / Rh type are not avail able for addit ional verif icati on. Not Available [facility] ([facility]) [address] [place], [address], 02/26/2024 10:14:59 02/20/2002/21/2024 PREGN ANGEL, INITI AL SCREE N antibody screen NEGATI VE negati ve Not Available [facility] ([facility]) [address] [facility], [place], [address], 02/26/2024 10:14:59 02/20/2002/21/2024 PREGN ANGEL, INITI AL SCREE N HIV Ab/P24 Ag screen NON REACTI VE nonrea ctive HIV-1 /HIV- 2 antib odies and HIV-1 p24 antig en were NOT detec arun. There is no labor atory evide nce of HIV infec tion. HIV Negat yulia Not Available [facility] ([facility]) [address] [facility], [place], [address], 02/26/2024 10:14:59 02/20/2002/21/2024 PREGN ANGEL, INITI AL SCREE N WBC 9.6 x10e3 /uL 3.4-10 .8 Not Available [facility] ([facility]) [address] [place], [address], 02/26/2024 10:14:59 02/20/2002/21/2024 PREGN ANGEL, INITI AL SCREE N RBC 3.34 x10e6 /uL 3.77-5 .28 below low normal Not Available [facility] ([facility]) [address] [place], [address], 02/26/2024 10:14:59 02/20/2002/21/2024 PREGN ANGEL, INITI AL SCREE N hemoglobin 10.2 g/dL 11.1-1 5.9 below low normal Not Available [facility] ([facility]) [address] [place], [address], 02/26/2024 10:14:59 02/20/2002/21/2024 PREGN ANGEL, INITI AL SCREE N hematocrit 31.2 % 34.0-4 6.6 below low normal Not Available [facility] ([facility]) [address] [place], [address], 02/26/2024 10:14:59 02/20/2002/21/2024 PREGN ANGEL, INITI AL SCREE N MCV 93 fL 79-97 Not Available [facility] ([facility]) [address] [place], [address], 02/26/2024 10:14:59 02/20/2002/21/2024 PREGN ANGEL, INITI AL SCREE N MCH 30.5 pg 26.6-3 3.0 Not Available [facility] ([facility]) [address] [place], [address], 02/26/2024 10:14:59 02/20/2002/21/2024 PREGN ANGEL, INITI AL SCREE N MCHC 32.7 g/dL 31.5-3 5.7 Not Available [facility] ([facility]) [address] [place], [address], 02/26/2024 10:14:59 02/20/2002/21/2024 PREGN ANGEL, INITI AL SCREE N RDW 12.5 % 11.7-1 5.4 Not Available [facility] ([facility]) [address] [place], [address], 02/26/2024 10:14:59 02/20/2002/21/2024 PREGN ANGEL, INITI AL SCREE N platelets 207 x10e3 /uL 150-45 0 Not Available [facility] ([facility]) [address] [facility], [place], [address], 02/26/2024 10:14:59 02/20/2002/21/2024 PREGN ANGEL, INITI AL SCREE N neutrophils 72 % notest ab. Not Available [facility] ([facility]) [address] [facility], [place], [address], 02/26/2024 10:14:59 02/20/2002/21/2024 PREGN ANGEL, INITI AL SCREE N lymphs 21 % notest ab. Not Available [facility] ([facility]) [address] [facility], [place], [address], 02/26/2024 10:14:59 02/20/2002/21/2024 PREGN ANGEL, INITI AL SCREE N monocytes 4 % notest ab. Not Available [facility] ([facility]) [address] [facility], [place], [address], 02/26/2024 10:14:59 02/20/2002/21/2024 PREGN ANGEL, INITI AL SCREE N eos 2 % notest ab. Not Available [facility] ([facility]) [address] [facility], [place], [address], 02/26/2024 10:14:59 02/20/2002/21/2024 PREGN ANGEL, INITI AL SCREE N basos 0 % notest ab. Not Available [facility] ([facility]) [address] [facility], [place], [address], 02/26/2024 10:14:59 02/20/20 24 02/21/2024 PREGN ANGEL, INITI AL SCREE N neutrophils (absolute) 7.0 x10e3 /uL 1.4-7. 0 Not Available [facility] ([facility]) [address] [place], [address], 02/26/2024 10:14:59 02/20/2002/21/2024 PREGN ANGEL, INITI AL SCREE N lymphs (absolute) 2.0 x10e3 /uL 0.7-3. 1 Not Available [facility] ([facility]) [address] [facility], [place], [address], 02/26/2024 10:14:59 02/20/2002/21/2024 PREGN ANGEL, INITI AL SCREE N monocytes(ab solute) 0.4 x10e3 /uL 0.1-0. 9 Not Available [facility] ([facility]) [address] [facility], [place], [address], 02/26/2024 10:14:59 02/20/2002/21/2024 PREGN ANGEL, INITI AL SCREE N eos (absolute) 0.2 x10e3 /uL 0.0-0. 4 Not Available [facility] ([facility]) [address] [place], [address], 02/26/2024 10:14:59 02/20/2002/21/2024 PREGN ANGEL, INITI AL SCREE N baso (absolute) 0.0 x10e3 /uL 0.0-0. 2 Not Available [facility] ([facility]) [address] [place], [address], 02/26/2024 10:14:59 02/20/2002/21/2024 PREGN ANGEL, INITI AL SCREE N immature granulocytes 1 % notest ab. Not Available [facility] ([facility]) [address] [place], [address], 02/26/2024 10:14:59 02/20/2002/21/2024 PREGN ANGEL, INITI AL SCREE N immature grans (abs) 0.1 x10e3 /uL 0.0-0. 1 Not Available [facility] ([facility]) [address] [facility], [place], [address], 02/26/2024 10:14:59 02/20/2002/21/2024 PREGN ANGEL, INITI AL SCREE N specific gravity 1.010 1.005- 1.030 Not Available [facility] ([facility]) [address] [facility], [place], [address], 02/26/2024 10:14:59 02/20/2002/21/2024 PREGN ANGEL, INITI AL SCREE N pH 8.0 5.0-7. 5 above high normal Not Available [facility] ([facility]) [address] [facility], [place], [address], 02/26/2024 10:14:59 02/20/2002/21/2024 PREGN ANGEL, INITI AL SCREE N urine-color YELLOW yellow Not Available [facility] ([facility]) [address] [facility], [place], [address], 02/26/2024 10:14:59 02/20/2002/21/2024 PREGN ANGEL, INITI AL SCREE N appearance CLEAR clear Not Available [facility] ([facility]) [address] [facility], [place], [address], 02/26/2024 10:14:59 02/20/2002/21/2024 PREGN ANGEL, INITI AL SCREE N WBC esterase NEGATI VE negati ve Not Available [facility] ([facility]) [address] [place], [address], 02/26/2024 10:14:59 02/20/2002/21/2024 PREGN ANGEL, INITI AL SCREE N protein NEGATI VE negati ve/tra ce Not Available [facility] ([facility]) [address] [place], [address], 02/26/2024 10:14:59 02/20/2002/21/2024 PREGN ANGEL, INITI AL SCREE N glucose NEGATI VE negati ve Not Available [facility] ([facility]) [address] [place], [address], 02/26/2024 10:14:59 02/20/2002/21/2024 PREGN ANGEL, INITI AL SCREE N ketones NEGATI VE negati ve Not Available [facility] ([facility]) [address] [place], [address], 02/26/2024 10:14:59 02/20/2002/21/2024 PREGN ANGEL, INITI AL SCREE N occult blood NEGATI VE negati ve Not Available [facility] ([facility]) [address] [place] [address], [address], 02/26/2024 10:14:59 02/20/2002/21/2024 PREGN ANGEL, INITI AL SCREE N bilirubin NEGATI VE negati ve Not Available [facility] ([facility]) [address] [place], [address], 02/26/2024 10:14:59 02/20/2002/21/2024 PREGN ANGEL, INITI AL SCREE N urobilinogen ,semi-qn 0.2 mg/dL 0.2-1. 0 Not Available [facility] ([facility]) [address] [place], [address], 02/26/2024 10:14:59 02/20/2002/21/2024 PREGN ANGEL, INITI AL SCREE N nitrite, urine NEGATI VE negati ve Not Available [facility] ([facility]) [address] [place], [address], 02/26/2024 10:14:59 02/20/2002/21/2024 PREGN ANGEL, INITI AL SCREE N microscopic examination COMMEN T Micro scopi c follo ws if indic ated. Not Available [facility] ([facility]) [address] [facility], [place], [address], 02/26/2024 10:14:59 02/20/2002/21/2024 PREGN ANGEL, INITI AL SCREE N microscopic examination SEE BELOW: Micro scopi c was indic ated and was perfo rmed. Not Available [facility] ([facility]) [address] [facility], [place], [address], 02/26/2024 10:14:59 02/20/2002/22/2024 PREGN ANGEL, INITI AL SCREE N urine culture,pren atal, w/gbs FINAL REPORT Not Available [facility] ([facility]) [address] [facility], [place], [address], 02/26/2024 10:14:59 02/20/2002/23/2024 PREGN ANGEL, INITI AL SCREE N chlamydia trachomatis, [place] NEGATI VE negati ve Not Available [facility] ([facility]) [address] [facility], [place], [address], 02/26/2024 10:14:59 02/20/2002/23/2024 PREGN ANGEL, INITI AL SCREE N neisseria gonorrhoeae, [place] NEGATI VE negati ve Not Available [facility] ([facility]) [address] [facility], [place], [address], 02/26/2024 10:14:59 02/20/2002/21/2024 MICRO SCOPI C EXAMI NATIO N WBC None seen /hpf 0-5 Not Available [facility] ([facility]) [address] [place], [address], 02/26/2024 10:15:02 02/20/2002/21/2024 MICRO SCOPI C EXAMI NATIO N RBC None seen /hpf 0-2 Not Available [facility] ([facility]) [address] [facility], [place], [address], 02/26/2024 10:15:02 02/20/2002/21/2024 MICRO SCOPI C EXAMI NATIO N epithelial cells (non renal) 0-10 /hpf 0-10 Not Available [facility] ([facility]) [address] [facility], [place], [address], 02/26/2024 10:15:02 02/20/2002/21/2024 MICRO SCOPI C EXAMI NATIO N casts None seen /lpf nonese en Not Available [facility] ([facility]) [address] [facility], [place], [address], 02/26/2024 10:15:02 02/20/2002/21/2024 MICRO SCOPI C EXAMI NATIO N bacteria None seen nonese en/few Not Available [facility] ([facility]) [address] [facility], [place], [address], 02/26/2024 10:15:02 02/20/2002/26/2024 DRUG SCREE N 17 W/CON F, UR creatinine 57 mg/dL REFER ENCE RANGE : Ref Range >=20 Not Available [facility] ([facility]) [address] [facility], [place], [address], 02/26/2024 10:15:03 02/20/2002/26/2024 DRUG SCREE N 17 W/CON F, UR ethanol biomarkers ia NEGATI VE NG/mL cutoff :500 Not Available [facility] ([facility]) [address] [facility], [place], [address], 02/26/2024 10:15:03 02/20/2002/26/2024 DRUG SCREE N 17 W/CON F, UR amphetamines ia NEGATI VE NG/mL cutoff :300 Not Available [facility] ([facility]) [address] [place], [address], 02/26/2024 10:15:03 02/20/2002/26/2024 DRUG SCREE N 17 W/CON F, UR barbiturates ia NEGATI VE NG/mL cutoff :200 Not Available [facility] ([facility]) [address] [place], [address], 02/26/2024 10:15:03 02/20/2002/26/2024 DRUG SCREE N 17 W/CON F, UR benzodiazepi [place] ia NEGATI VE NG/mL cutoff :50 Not Available [facility] ([facility]) [address] [place], [address], 02/26/2024 10:15:03 02/20/2002/26/2024 DRUG SCREE N 17 W/CON F, UR cocaine metabolite ia NEGATI VE NG/mL cutoff :150 Not Available [facility] ([facility]) [address] [place], [address], 02/26/2024 10:15:03 02/20/2002/26/2024 DRUG SCREE N 17 W/CON F, UR phencyclidin e ia NEGATI VE NG/mL cutoff :25 Not Available [facility] ([facility]) [address] [place], [address], 02/26/2024 10:15:03 02/20/2002/26/2024 DRUG SCREE N 17 W/CON F, UR cannabinoids ia COMMEN T NG/mL cutoff :20 Furth er testi ng indic ated Not Available [facility] ([facility]) [address] [place], [address], 02/26/2024 10:15:03 02/20/2002/26/2024 DRUG SCREE N 17 W/CON F, UR 6-acetylmorp emelia ia NEGATI VE NG/mL cutoff :10 Not Available [facility] ([facility]) [address] [place], [address], 02/26/2024 10:15:03 02/20/20 24 02/26/2024 DRUG SCREE N 17 W/CON F, UR opiate class ia NEGATI VE NG/mL cutoff :100 Not Available [facility] ([facility]) [address] [place], [address], 02/26/2024 10:15:03 02/20/2002/26/2024 DRUG SCREE N 17 W/CON F, UR oxycodone class ia NEGATI VE NG/mL cutoff :100 Not Available [facility] ([facility]) [address] [place], [address], 02/26/2024 10:15:03 02/20/2002/26/2024 DRUG SCREE N 17 W/CON F, UR methadone ia NEGATI VE NG/mL cutoff :100 Not Available [facility] ([facility]) [address] [place], [address], 02/26/2024 10:15:03 02/20/2002/26/2024 DRUG SCREE N 17 W/CON F, UR fentanyl ia NEGATI VE NG/mL cutoff :2.0 Not Available [facility] ([facility]) [address] [place], [address], 02/26/2024 10:15:03 02/20/2002/26/2024 DRUG SCREE N 17 W/CON F, UR buprenorphin e ia NEGATI VE NG/mL cutoff :5.0 Not Available [facility] ([facility]) [address] [place], [address], 02/26/2024 10:15:03 02/20/2002/26/2024 DRUG SCREE N 17 W/CON F, UR tramadol ia NEGATI VE NG/mL cutoff :200 Not Available [facility] ([facility]) [address] [place], [address], 02/26/2024 10:15:03 02/20/2002/26/2024 DRUG SCREE N 17 W/CON F, UR propoxyphene ia NEGATI VE NG/mL cutoff :300 Not Available [facility] ([facility]) [address] [place], [address], 02/26/2024 10:15:03 02/20/2002/26/2024 DRUG SCREE N 17 W/CON F, UR tapentadol ia NEGATI VE NG/mL cutoff :200 Not Available [facility] ([facility]) [address] [place], [address], 02/26/2024 10:15:03 02/20/2002/26/2024 DRUG SCREE N 17 W/CON F, UR nicotine metabolite ++POSI TIVE++ abnormal Not Available [facility] ([facility]) [address] [place], [address], 02/26/2024 10:15:03 02/20/2002/26/2024 DRUG SCREE N 17 W/CON F, UR cotinine >200 NG/mL Not Available [facility] ([facility]) [address] [place], [address], 02/26/2024 10:15:03 02/20/2002/26/2024 BRITTANY MURILLO DS, MS, UR RFX cannabinoids ++POSI TIVE++ abnormal Not Available [facility] ([facility]) [address] [place], [address], 02/26/2024 10:15:04 02/20/2002/26/2024 BRITTANY MURILLO DS, MS, [...] other canna binoi ds. Not Available [facility] ([facility]) [address] [facility], [place], [address], 02/26/2024 10:15:04 02/20/20 24 02/22/2024 RESUL T result 1 Commen t Mixed uroge nital shagufta 10,00 0-25, 000 colon y formi ng units per mL Not Available [facility] ([facility]) [address] [facility], [place], [address], 02/26/2024 10:15:05 02/20/2002/21/2024 VARIC MIROSLAVA- ZOSTE R [...] not been acqui red. Not Available [facility] ([facility]) [address] [facility], [place], [address], 02/26/2024 10:15:06 02/20/2002/26/2024 MATER NIT21 PLUS CORE gestation SINGLE TON Not Available [facility] ([facility]) [address] [facility], [place], [address], 02/26/2024 17:10:33 02/20/2002/26/2024 MATER NIT21 PLUS CORE fraction 20% Not Available [facility] ([facility]) [address] [facility], [place], [address], 02/26/2024 17:10:33 02/20/2002/26/2024 MATER NIT21 PLUS CORE gestational age > or = 9W: YES Not Available [facility] ([facility]) [address] [place], [address], 02/26/2024 17:10:33 02/20/20 24 02/26/2024 MATER NIT21 PLUS CORE test result NEGATI VE Not Available [facility] ([facility]) [address] [place], [address], 02/26/2024 17:10:33 02/20/20 24 02/26/2024 MATER NIT21 PLUS CORE [employer] laboratory director comments FEI Berrios speci men showe d an expec arun repre senta tion of chrom osome 21, 18 and 13 mater ial. Clini francis corre latio n is buster cueto. Not Available [facility] ([facility]) [address] [place], [address], 02/26/2024 17:10:33 02/20/20 24 02/26/2024 MATER NIT21 PLUS CORE approved by FEI ocampo MD, PhD, [facility] tor, [place] [facility] Labor atori es Not Available [facility] ([facility]) [address] [place], [address], 02/26/2024 17:10:33 02/20/20 24 02/26/2024 MATER NIT21 PLUS CORE trisomy 21 (down syndrome) NEGATI VE Not Available [facility] ([facility]) [address] [place], [address], 02/26/2024 17:10:33 02/20/20 24 02/26/2024 MATER NIT21 PLUS CORE trisomy 18 (calderon syndrome) NEGATI VE Not Available [facility] ([facility]) [address] [place], [address], 02/26/2024 17:10:33 02/20/20 24 02/26/2024 MATER NIT21 PLUS CORE trisomy 13 (patau syndrome) NEGATI VE Not Available [facility] ([facility]) [address] [facility], [place], [address], 02/26/2024 17:10:33 02/20/20 24 02/26/2024 MATER NIT21 PLUS CORE sex COMMEN T Consi stent with Male Not Available [facility] ([facility]) [address] [facility], [place], [address], 02/26/2024 17:10:33 02/20/20 24 02/26/2024 MATER NIT21 PLUS CORE negative predictive value NOTE The Negat yulia Predi ctive Value (NPV) for triso my 21, 18, and 13 is great er than 99%. The NPV for SCA and ESS canno t be calcu lated as SCA and ESS are only repor arun when an abnor malit y is detec arun. Not Available [facility] ([facility]) [address] [facility], [place], [address], 02/26/2024 17:10:33 02/20/20 24 02/26/2024 MATER NIT21 PLUS CORE positive predictive value N/A Not Available [facility] ([facility]) [address] [facility], [place], [address], 02/26/2024 17:10:33 02/20/20 24 02/26/2024 MATER NIT21 [...] yet been valid ated. Not Available [facility] ([facility]) [address] [facility], [place], [address], 02/26/2024 17:10:33 02/20/20 24 02/26/2024 MATER NIT21 [...] s 16 and 22. Not Available [facility] ([facility]) [address] [facility], [place], [address], 02/26/2024 17:10:33 02/20/20 24 02/26/2024 MATER NIT21 PLUS CORE performance COMMEN T The perfo rmanc e tru cteri stics of the Mater niT(R ) 21 PLUS labor atory -deve loped test (LDT) have been deter mined in a clini francis valid ation study with pregn ant women at incre ased risk for chrom osoma l aneup loidy .[1-4 ] Not Available [facility] ([facility]) [address] [facility], [place], [address], 02/26/2024 17:10:33 02/20/20 24 02/26/2024 MATER NIT21 [...] ase nstd3 7 [http s://w rola.nc bi.nl .[facility] [place] .gov/ dbvar /stud ies/n std37 / ] [...] eton gesta tion only. Not Available [facility] ([facility]) [address] [facility], [place], [address], 02/26/2024 17:10:33 02/20/20 24 02/26/2024 MATER NIT21 [...] and Fragm in(R) ). Not Available [facility] ([facility]) [address] [facility], [place], [address], 02/26/2024 17:10:33 02/20/2002/26/2024 MATER NIT21 PLUS CORE note COMMEN T See Notes [facility] is a subsi diary of Labor atory Corpo ratio n of Judith mott Holdi ngs, using the brand [employer]. This test was devel oped and its perfo rmanc e tru cteri stics deter mined by [employer] [facility]. It has not been clear ed [...] men will be avail able until term. [facility] sampl es will not be retai tarsha beyon d 60 days. [facility] patie nts will have to send a new sampl e for re-se quenc ing ([facility] Test Code: [id number]). Not Available [facility] ([facility]) [address] [facility], [place], [address], 02/26/2024 17:10:33 02/20/2002/26/2024 MATER NIT21 PLUS CORE [...] No. 226, Feb 2020. Not Available [facility] ([facility]) [address] [facility], [place], [address], 02/26/2024 17:10:33 02/20/20 24 02/26/2024 MATER NIT21 PLUS CORE pdf . Not Available [facility] ([facility]) [address] [facility], [place], [address], 02/26/2024 17:10:33 03/11/20 24 03/11/2024 urina lysis [...] 03/11/2003/11/2024 urina lysis , dipst ick Specific [place] 1.025 Not Available In-Off ice Order Internal [...] nt clini francis [facility]) Not Available [address] [place], [address], 05/06/2024 08:52:45 05/04/20 24 05/04/2024 cultu re, urine RPR non-re active normal Not Available [address] [place], [address], 05/06/2024 08:52:45 05/04/20 24 05/04/2024 RPR (rapi d plasm a reagi n), quant itati ve, serum urine culture negati ve Less than 100,0 00 colon ies/m L (clin icall y insig nific ant growt h based on curre nt clini francis [facility]) Not Available [address] [place], [address], 05/07/2024 17:02:50 05/04/20 24 05/04/2024 RPR (rapi d plasm a reagi n), quant itati ve, serum RPR non-re active normal Not Available [address] [place], [address], 05/07/2024 17:02:50 06/22/19 25 06/22/2024 patho logy, [...] in depos ition prese nt. Not Available [address] [place], [address], 06/25/2024 14:46:41 07/06/19 25 07/06/2024 urina lysis , dipst ick Leukocytes Negati ve Not Available In-Office Order Internal Use Only DO Not Attach Compendium DO Not Attach Compendium, Do Not Delete/merge, [facility] 07/06/2024 10:08:01 07/06/19 25 07/06/2024 urina lysis , dipst ick Nitrite negati ve Not Available In-Office Order Internal Use Only DO Not Attach Compendium DO Not Attach Compendium, Do Not Delete/merge, [facility] 07/06/2024 10:08:01 07/06/19 25 07/06/2024 urina lysis , dipst ick Urobilinogen .2 Not Available In-Of fice Order Internal Use Only DO Not Attach Compendium DO Not Attach Compendium, Do Not Delete/merge, [facility] 07/06/2024 10:08:01 07/06/19 25 07/06/2024 urina lysis , dipst ick Protein Negati ve Not Available In-Office Order Internal Use Only DO Not Attach Compendium DO Not Attach Compendium, Do Not Delete/merge, [facility] 07/06/2024 10:08:01 07/06/19 25 07/06/2024 urina lysis , dipst ick pH 7.0 Not Available In-Office Order Internal Use Only DO Not Attach Compendium DO Not Attach Compendium, Do Not Delete/merge, [facility] 07/06/2024 10:08:01 07/06/19 25 07/06/2024 urina lysis , dipst ick Blood Modera te Not Available In-Office Order Internal Use Only DO Not Attach Compendium DO Not Attach Compendium, Do Not Delete/merge, [facility] 07/06/2024 10:08:01 07/06/19 25 07/06/2024 urina lysis , dipst ick Specific [place] 1.020 Not Available In-Off ice Order Internal Use Only DO Not Attach Compendium DO Not Attach Compendium, Do Not Delete/merge, [facility] 07/06/2024 10:08:01 07/06/19 25 07/06/2024 urina lysis , dipst ick Ketone Negati ve Not Available In-Office Order Internal Use Only DO Not Attach Compendium DO Not Attach Compendium, Do Not Delete/merge, [id number] 07/06/2024 10:08:01 07/06/19 25 07/06/2024 urina lysis , dipst ick Bilirubin Negati ve Not Available In-Office Order Internal Use Only DO Not Attach Compendium DO Not Attach Compendium, Do Not Delete/merge, [id number] 07/06/2024 10:08:01 07/06/19 25 07/06/2024 urina lysis , dipst ick Glucose Negati ve Not Available In-Office Order Internal Use Only DO Not Attach Compendium DO Not Attach Compendium, Do Not Delete/merge, [id number] 07/06/2024 10:08:01 01/21/20 24 01/21/2024 US, obste tric, mater nal evalu ation + anato my No observ [facility] ed[facility] [address], [place], [address], 05/07/2024 17:14:19 05/04/20 24 05/04/2024 US, obste tric, mater nal evalu ation + anato my No observ ation record ed. [facility] [address] [place], [address], 05/07/2024 17:15:27 Result Notes None recorded. Problems Name Problem SNOMED Code Status Onset Date Resolution Date Notes Provider Name and Address Organization Details Recorded Time Bipolar disorder 64749326 Active 2020 KELLE LEDESMA MD Attn: Accounting ,[address] [place], [address] , [place] [facility] 1 21:06:09 Infectio n of tooth 949266452 Active 2022 Romi Cazares LPN [place], [place] [facility] 3 16:26:08 Pregnanc y 34870120 Completed 202204/30/2023 Brennon Hdez RN [place] [facility] 5 12:42:22 Substanc e abuse 59495112 Completed 2022 [place] Al[place] ite [place] [facility] 3 13:14:16 Substanc e abuse 98481534 Active 2022 [place] [facility] 3 13:14:17 Varicell a non-immu ne 156447659 Completed 2022 [place]e [place] [facility] 3 13:14:16 Pregnanc y 63333969 Completed 202307/06/2024 Brennon Hdez [place] [facility] 5 12:42:22 Late entry into care 513868750 Completed 2023 KELLE LEDESMA MD Attn: Accounting ,[address] [place], [place], [address] [place] [address] , [place] [facility] 4 16:42:17 Harmful pattern of use of Cannabis 20375094 Completed 2023 Recommen ded quitting KELLE LEDESMA MD Attn: Accounting ,[address] [facility], [place], [place], [address] [place] [address] , [place] [facility] 4 18:19:36 Harmful pattern of use of Cannabis 27378243 Active 2023 Recommen ded quitting KELLE LEDESMA MD Attn: Accounting ,[address] [facility], [place], [address] , [place] [facility] 4 18:19:36 Nausea and vomiting in pregnanc y Completed 2023 Recommen ded B6 and Doxylami ne KELLE LEDESMA MD Attn: Accounting ,[address] [facility], [place], [address] , [place] [facility] 4 16:43:08 Tobacco smoking in mother complica ting pregnanc y 02661461508 4109 Completed 2023 KELLE LEDESMA MD Attn: Accounting ,[address] [facility], [place], [address] , [place] [facility] 4 18:18:13 Tobacco smoking in mother complica ting pregnanc y 67894114419 4109 Active 2023 KELLE LEDESMA MD Attn: Accounting ,[address] [place], [address] , [place] [facility] 4 18:18:13 Varicell a non-immu ne 763547605 Active 2023 will need PP Varicell a vaccine KELLE LEDESMA MD Attn: Accounting ,[address] [place], [address] , [place] [facility] 4 18:18:35 Varicell a non-immu ne 821084301 Completed 2023 will need PP Varicell a vaccine KELLE LEDESMA MD Attn: Accounting ,[address] [place], [place], [address] [place] [address] , [place] [facility] 4 18:18:35 Anemia of pregnanc y 35399529 Completed 2023 Hgb 10.2, normocyt ic FeS recommen ded. KELLE LEDESMA MD Attn: Accounting ,[address] [place], [address] , [place] [facility] 4 18:19:03 Asthma 329738484 Active 2024 LEROY MACHADO MD Attn: Accounting ,[address] [place], [address] , [place] [facility] 5 10:31:25 Postpart um care Active 2024 LEROY MACHADO MD Attn: Accounting ,[address] [place], [address] , [place] [facility] 5 10:40:22 Problem Notes None recorded. Medical Equipment None Reported. Allergies Allergen ID Allergen Name Allergen Category Reaction Reaction Severity Criticality Documentation Date Start Date Code Code System Note Provider Name and Address Organization Details Recorded Time 019504 Phenergan medicatio n hives Not available Not available 03/16/2021 66140 8 RxNorm heada analy Fried MA [facility], [place] [facility] 12:46:15 Medications Name Sig [...] Available Not Available gabapentin 300 mg capsule TAKE ONE CAPSULE BY MOUTH NIGHTLY active Not Available Not Available No t Available hydroxyzine HCl 25 mg tablet Take 1 [...] Not Available aripiprazol e 10 mg tablet TAKE ONE TABLET BY MOUTH EVERY DAY active Not Available Not Available No t Available aripiprazol e 5 mg tablet Take 1 [...] Updated DateTime 2 157.48 cm 27 kg/m2 03668.2 7 g 98.2 [degF] 16 /min 99 % 99 % 90 /min 122/90 mm[Hg] Yokasta Fried [place] [facility] 2 11:44:57 Date Recorded Body height Body mass index (BMI) Body weight Heart rate Oxygen saturation Oxygen saturation in Arterial blood by Pulse oximetry Systolic And Diastolic Provider Name and Address Organization Details Last Updated DateTime 5 157.48 cm 23.6 kg/m2 25111.4 2 g 88 /min 97 % 97 % 118/64 mm[Hg] Heike Vega [place] [facility] 5 10:10:15 Date Recorded Body height Body mass index (BMI) Body weight Body temperature Respiratory rate Oxygen saturation Oxygen saturation in Arterial blood by Pulse oximetry Heart rate Systolic And Diastolic Provider Name and Address Organization Details Last Updated DateTime 3 157.48 cm 26.9 kg/m2 81523.6 48693 g 98.1 [degF] 18 /min 97 % 97 % 84 /min 110/70 mm[Hg] Romi Cazares LPN [place] [facility] 3 16:22:13 Date Recorded Body mass index (BMI) Body height Provider Name and Address Organization Details Last Updated DateTime 12/23/2023 26.2 kg/m2 157.48 cm KELLE LEDESMA MD Attn: Accounting,[address] [place], [address], [place] [facility] 01/07/2024 16:41:59 Date Recorded Body weight Respiratory rate Heart rate Body temperature Systolic And Diastolic Provider Name and Address Organization Details Last Updated DateTime 4 84584.1 6 g 20 /min 102 /min 98.5 [degF] 112/72 mm[Hg] Julia Knott MA [place] [facility] 4 16:17:38 Date Recorded Body height Body mass index (BMI) Body weight Provider Name and Address Organization Details Last Updated DateTime 03/11/2024 157.48 cm 26.6 kg/m2 24858.29 g Patricia Frost [facility] 03/11/2024 14:58:13 Social History Question Answer Notes LastModified by Organizat ion Details LastModified Time Tobacco Smoking Status Current Every Day Smoker Yokasta Fried MA [facility], [facility] 03/16/2021 12:49:13 Do You Have An Advance [...] 03/16/2021 Are you able to care for yourself independently? Yes Information not available 03/16/2021 Do you or have you ever used e-cigarettes or vape? Former user of electronic cigarettes Information not available 07/06/2024 Mental Status None recorded. Family History Nothing Reported Notes:no connection to famil y Medical History Condition Response Coronary Artery Disease N Other N High Blood Pressure Y Atrial Fibrillation N Kidney or Bladder Problems N Thyroid Problems N Blood Clots N COPD N Depression Y GI Problems N Skin Problems N Eating Disorder N Anemia N Heart Attack (TN) N Anxiety Disorder Y Diabetes N Muscle, [...] Immunizations Vaccine Type Date Status Note Provider Nam e and Address Organization Details Recorded Time COVID-19, mRNA, LNP-S, PF, 30 mcg/0.3 mL dose 2 completed KELLE LEDESMA MD Attn: Accounting,[address] [facility], [place], [address], [place] [facility] 01/07/2024 17:08:27 COVID-19, mRNA, LNP-S, PF, 30 mcg/0.3 mL dose, phillip-sucrose 2 completed KELLE LEDESMA MD Attn: Accounting,[address] [facility], [place], [address], [place] [facility] 01/07/2024 17:08:27 pneumococcal polysaccharide PPV23 0 completed KELLE LEDESMA MD Attn: Accounting,[address] [place], [address], [place] [facility] 01/07/2024 17:08:27 Tdap 0 completed KELLE LEDESMA MD Attn: Accounting,[address] [place], [address], [place] [facility] 01/07/2024 17:08:27 Past Encounters Encounter ID Performer Location Encounter Start Date Encounter Closed Date Diagnosis/Indication Diagnosis SNOMED-CT Code Diagnosis ICD10 Code Diagnosis IMO Codes Diagnosis Note [id number] KELLE LEDESMA MD [place] [address] [facility] [address] [place] [phone] 03/16/2021 11:57:58 03/17/2021 10:15:37 History of anemia 059280992 Z86.2 denies symptoms currently but was on iron in the past Bipolar disorder 1502976 4 F31.9 03/16/21 - PHQ9 20, GAD7 21, denies SI/HIHisto ry of bipolar disorder, will start Abilify 5mg and Zoloft 50mg, with PRN hydroxyzin e 25mg TID PRN for anxiety, worked on her beforenot interested in counselludy ontiveros at this timeRT in 2-4 weeks for follow up Seasonal a llergic rhinitis 002511510 J30.2 Uses oral contraception 4360477 Z30.41 discussed control options, patient would like to start with OCP and transtion to NuVa ring in the future. [id number] MD John MALONEY [address] [facility] [place] [address] 03/30/2021 11:14:19 03/30/2021 22:40:01 Bipolar disorder 23567490 F31.9 03/16/21 - PHQ9 20, GAD7 21, denies SI/HIHisto ry of bipolar disorder,- will increase Abilify to 10mg, continue zoloft 50mg daily- stop hydroxyzin e, start buspar 10mg BID- Referral to psychiatry for assistance in med management , not interested in conselling at this time- RTC in 2-4 weeks for a phone visit. [id number] MD John MALONEY [address] [facility] [place] [address] 05/23/2021 11:38:41 06/01/2021 22:51:28 Syncope 760663192 R55 DDx includes vagal episode vs hypoglycem ia vs orthostati c hypotensio n vs other- in office orthostati c BP wnl- Will obtain some blood work- Provided education on warning signs to monitor- Low suspicion for seizure- Advised patient to continue to monitor and note some precipitat ing effects, consider tilt-table test in the future [id number] MD John MALONEY [address] [place] [address] 06/29/2021 11:18:51 06/30/2021 12:23:49 Cellulitis of skin 163760596 L03.90 induration on back concerning for cellulitis will treat with bactrim DS BID x7 daysDiscus sed return precaution s and warning signs to present to the ED, patient voiced understand ing Elevated blood-pressure reading without diagnosis of hypertension 036657537 R03.0 DBP 90, from pain, will reassess at next visit Contracept ion care management 467881627 Z30.9 Risks of hormonal control reviewed, menstrual bleeding or no bleeding, weight changes, and mood changes. Risks of bone loss with Depo Provera also reviewed. All questions answered. Pt understand s & accepts risks. Instructio ns/warning signs given. Safe sex counseling done.- in office UPT negative- Patient conselled on considerin g Nexplanon, will think about it and follow up Venereal d isease screening 491872912 Z11.3 STI testing done per patient's request [id number] RACHEL RON (STRATEGIC MARKETING LEADER) [address] [place] [phone] 09/06/2022 15:29:51 09/07/2022 15:38:10 Routine care 707044281 Z34.91 Acute urin anita tract infection 059707473 N39.0 [id number] MD John MALONEY [address] [place] [address] 12/23/2023 15:48:36 01/08/2024 09:19:02 Urine test positive 377151825 Z32.01 in office UPT positive Routine an tenatal care 455231947 Z34.81 -FH measuring large -FHR reassuring - vitals wnl - urine dip abnormal for proteinuri a, blood, and leuks - anticipato ry guidance provided - initiate PNV - follow-up pending results or in 4 weeks- Initial labs and dating US ordered today Vaginal discharge 808017 006 N89.8 obtain nuswab as patient is complainin g of DC on exam Nausea and vomiting in 0585743978 O21.9 Constipati on during 4058166581 5857775 K59.00 Late entry into care 524813689 O09.32 [id number] MD John Willis [address] [place] [address] [address] [place] [phone] 03/11/2024 14:41:05 03/13/2024 09:28:50 Routine care 717930491 Z34.82 [id number] MD Rohit MALONEY (STRATEGIC MARKETING LEADER) [address] [place] [id number] 07/06/2024 09:29:04 07/21/2024 13:25:12 care 062804549 Z39.2 - Bonding: Hard to haley due [...] weeks - Blues (EDPS): Started back at [facility], tearful in room due to baby not living at home with her, lives at home with zohra, has good support system, does not want to see a therapist/ counselor, has 4y/o boy with autism, has two kids from previous marriage and current fiance has 2 kids- Control: Nexplanon Plan:-Foll ow up in 4 weeks Asthma 630353916 J45.90 9 -Reports SOB daily, worse with [...] Person Member ID Guarantor Name 02/26/2024 1 [facility] ON OR AFTER 11/10/20 (MEDICAID REPLACEMENT - HMO) Sierra Cheng [id number] Sierra Cheng 02/26/2024 1 [facility] ON OR AFTER 11/10/20 (MEDICAID REPLACEMENT - HMO) Sierra Cheng [id number] Sierra hCeng 12/20/2023 1 *SELF PAY* Carol Cheng 07/06/2024 SLIDING FEE SCHEDULE - DISCOUNT Sierra Cheng 12/23/2023 2 *SELF PAY* Carol Cheng Notes Date Note Type Note Provider Name and Address Organization Details Recorded Time 06/29/2021 text/html ROS as noted in the HPI 25 yo F with PMhx of bipolar disorder, here to discuss erythma on back and changing control. Got bitten by something yesterday on her back, was viewing houses and concerned something may have crawled on herfelt nauseous and warm, but denies fevers/chillsNo chest pain, SOB, or throat swellingDenies bleeding, or discharge but endorses induration, itching, and pain Contraception carecurrently on sprintec, wants to go to depo,LMP 06/25, currently on her period, likely last dayHas [...] Bipolar disorder (not on meds currently) Anticipate [facility] Delivery INITIAL LABS Date:Ordered on 12/23/2023 Blood Type: Rh Type: Antibody Screen: CBC: Hgb Hct WBC Plts VDRL/RPR: Hep B: HepC: HIV: Vaginal Cultures: GC:; Chlamydia:;Trich: Pap: Rubella: Varicella: CF: SS: consistent with Urine Dip Culture: UDS: LyepnygK94:; consistent with Dating US: LMP: GA MICHAEL: Patient is of dating. DUS: Date AUA: MICHAEL: Discrepancy MICHAEL: Based on Anatomy Scan: 26 weeks: Date GTT: ; 3HR GTT CBC: Hgb Hct WBC Plts HIV: RPR Tdap: COVID: Flu RSV Rhogam: Date: 36 weeks: Date: Vaginal Cultures: GC:; Chlamydia:;Trich: GBS Limited US: Situational Awareness: Patient living with boyfriend, at his parent's home in [place], [facility] Patient did not have time to complete OB packets today. Support Person/Partner/Othe r Parent(s): Siblings: Possible Baby Name(s): Willing to participate in group visits: Home visits ok: Established Dentist: Dental Visit in the last year: Regular Exercise Routine: Taking vitamin prior to : Open to vaccination: Tdap: COVID: Flu: RSV: Consent for urine drug screen: [place]: PHQ9: GAD7: ACES: Resilience: Trauma/PTSD screen SDOH: Planning to breastfeed: Circumcision Epidural Post- contraception KELLE LEDESMA MD Attn: Accounting[address] [place], [address], [facility] 01/07/2024 17:05:48 07/06/2024 text/html 28y/o F presenting for PP visit -Delivered on 06/22/24 at [...] control: Nexplanon (received prior to hospital discharge)-Extra: under custody of [employer]CF[employer], placement of with relay assembler - Bonding: Hard to haley due to baby living with foster mom, sees him once a week- Breast: No tenderness- Belly: Occasional cramping- Bowels: No concerns- Bladder: No concerns- Bleeding: Still having some vaginal bleeding but it is letting up- Boinking 'sex': Has had vaginal sex- Blues (EDPS): Started back at [facility], tearful in room due to baby not living at home with her, lives at home with duy, has good support system, does not want to see a therapist/counselor , has 4y/o boy with autism, has two kids from previous marriage and current fiance has 2 kids- Control: Nexplanon KELLE LEDESMA MD Attn: Accounting[address] [place], [address], [facility] 07/16/2024 15:55:21 OBGyn Episode Ob Episode Information Episode Created Date Number of Fetuses Patient Bloodtype Patient rh Status Prepregnancy Weight lbs Domestic Partner Domestic Partner Phone Father Name Log [employer] Derrick Operator Status 01/16/20 25 1 DELETED Fetus Data First Name Last Name Admitted to NICU Weight (g) Sex Living Outcome Pediatric Complications Fetus ID Race Codes Race Delivery Type 70036 Michael Calculation Initial Michael Date Initial Exam Date Initial Exam Provider Initial Ultrasound Date Last Menstrual Period Date Ultra Sound Weeks Gestation 01/15/2025 0 Eighteen To Twenty Week Michael Update [...] Domestic Partner Domestic Partner Phone Father Name Log [employer] Derrick Operator Status 12/23/19 24 1 O Positive CLOSED Fetus Data First Name Last Name Admitted to NICU Weight (g) Sex Living Outcome Pediatric Complications Fetus ID Race Codes Race Delivery Type [facility] false 2214.11 80791 M true Full Term 69825 2106-3 White Vaginal Problems Problem Notes Problem Name Start Date End Date Resolution Snomed Code Not e Anemia of 02/20/2024 20079942 Hgb 10.2, normocyticFeS recommended. Tobacco smoking in mother complicating 12/23/2023 373960147817461 Late entry into care 12/23/2023 663663186 Varicella non-immune 02/20/2024 903996833 will need PP Varicella vaccine Harmful pattern of use of Cannabis 12/23/2023 40567130 Recommended quitting Nausea and vomiting in 12/23/2023 0826622886 Recommended B6 and Doxylamine Michael Calculation Initial [...] Gestation 0 mmetias 02/26/2024 07/04/19 25 0 Pre-edda Flowsheet Flowsheet Date 12/23/2023 Marcum Score Blood Edema Fundus Height Fundus Units Glucose Ketones Leukocytes Nitrite Labor Signs Protein Cervic Dilation Cervic Effacement Cervic Station 2+ none none large none 2+ Type Weight in lbs Pre/Post Dialysis Refused With clothes 143.607978455566 BP Diastolic BP Location Tested BP Systolic [...] in lbs Pre/Post Dialysis Refused With clothes 145.57004746583 BP Diastolic BP Location Tested BP Systolic BP Type Fetus Heart Rate Present A 150 Fetus Movement A Yes Comments Pt doing well. Missed this m orning appt w/ Metias due to being on the bus for [...] son. Will get pt set up with [employer] [facility] here at [facility] and have our healthcare insurance sales agent get in touch. Pt given [employer] [place] [employer] help info to help pt obtain a divorce from the father of first two children who [place] now [place] [facility]. Pt to follow up in 2 weeks with [facility], sooner if needed. This provider will keep in touch to make sure pt is able to get to appts. Pt v/u. Flowsheet Date 07/06/2024 Marcum Score Blood Edema Fundus Height Fundus Units Glucose Ketones Leukocytes Nitrite Labor Signs Protein Cervic Dilation Cervic Effacement Cervic Station Type Weight in lbs Pre/Post Dialysis Refused With clothes 129.23842582055 BP Diastolic BP Location Tested BP Systolic [...] Domestic Partner Domestic Partner Phone Father Name [employer] Derrick Operator Status 09/07/19 23 1 CLOSED Fetus Data First Name Last Name Admitted to NICU Weight (g) Sex Living Outcome Pediatric Complications Fetus ID Race Codes Race Delivery Type 2778.25 1 F Full Term 37341 Vaginal Michael Calculation Initial Michael Date Initial [...] Complications Tubal Sterilization Discharge Date Comments 7 [facility] [address] Discharge Information Feeding Method Contraceptive Method Maternal HG B and HCT Levels Ob Episode Information Episode Created Date Number of Fetuses Patient Bloodtype Patient rh Status Prepregnancy Weight lbs Domestic Partner Domestic Partner Phone Father Name [employer] Derrick Operator Status 09/07/19 1 O Positive CLOSED Fetus Data First Name Last Name Admitted to NICU Weight (g) Sex Living Outcome Pediatric Complications Fetus ID Race Codes Race Delivery Type 23212 Problems Problem Notes 09/06/22: Hospital: Undecided Breast Feed: Yes Circumcision: Yes PPBC: Undecided [employer] Derrick Operator: Undecided Problem Name Start Date End Date Resolution Snomed Code Not e Varicella non-immune 09/14/2022 38874926 9 Substance abuse 09/14/2022 65393193 Michael Calculation Initial Michael Date Initial Exam [...] Ultra Sound Latest Days Gestation 0 03/25/20 0 Pre-edda Flowsheet Flowsheet Date 09/06/2022 Marcum Score Blood Edema Fundus Height Fundus Units Glucose Ketones Leukocytes Nitrite Labor Signs Protein Cervic Dilation Cervic Effacement Cervic Station 2+ none none large 1+ Type Weight in lbs Pre/Post Dialysis Refused With clothes 147.883734444202 BP Diastolic BP Location Tested BP Systolic [...] At Estimated Date of Delivery false Thalassemia (Swiss, Trinidadian, Mediterranean, Or Background): MCV < 80 false Neural Tube Defect (Meningomyelocele, Spina Bifida, Or Anencephaly) false Congenital Heart Defect false Down Syndrome false Kvng-Sachs (eg, Jainism, Cajun , Chinese-Linwood) false Freddie Disease false Sickle Cell Disease Or Trait () false Hemophilia Or Other Blood Disorders false Muscular Dystrophy false Cystic Fibrosis false Dickey's Chorea false Mental Retardation/Autism false If Yes, [...] STD, Gonorrhea, Chlamydia, HPV, Syphilis true CT 2015 Other Infection History false History of HIV [...] 09/06/2022 Exercise 09/06/22: ACOG Ed ucation: pantera nashauerlpandrew 09/06/2022 Teratogens 09/06/22: ACOG Ed ucation: pantera nashauerlpn 09/06/2022 Use of any medicatio ns (including supplements, vitamins, herbs, or OTC drugs) 09/06/22: ACOG Education: pantera ferreira 09/06/2022 09/06/22: ACOG Ed ucation: pantera nashauerlpn 09/06/2022 Sexual activity 09/06/22: ACOG Ed ucation: pantera nashauerlpandrew 09/06/2022 Tobacco/smoking cess ation counseling (ask, advise, assess, assist, and arrange) 09/06/22: ACOG Education: pantera ferreira 09/06/2022 Illicit/recreational drugs : ACOG Education: pantera ferreira 09/06/2022 Dental care 09/06/22: ACOG Ed ucation: pantera nashauercrystal 09/06/2022 Travel 09/06/22: ACOG Ed ucation: pantera nashauercrystal 09/06/2022 Seat belt use 09/06/22: ACOG Ed ucation: pantera nashauercrystal 09/06/2022 Indications for ultrasonography 09/06/22: ACOG Education: pantera nashauercrystal 09/06/2022 Avoidance of saunas or hot tubs 09/06/22: ACOG Education: pantear nashauercrystal 09/06/2022 Toxoplasmosis precau tions (cats/raw meat) 09/06/22: [...] Domestic Partner Domestic Partner Phone Father Name Log [employer] Derrick Operator Status 09/07/19 23 1 CLOSED Fetus Data First Name Last Name Admitted to NICU Weight (g) Sex Living Outcome Pediatric Complications Fetus ID Race Codes Race Delivery Type , Spontane ous 53306 Michael Calculation Initial Michael Date Initial Exam [...] Domestic Partner Domestic Partner Phone Father Name [employer] Derrick Operator Status 09/07/19 23 1 CLOSED Fetus Data First Name Last Name Admitted to NICU Weight (g) Sex Living Outcome Pediatric Complications Fetus ID Race Codes Race Delivery Type 2579.57 7704 M Full Term 51219 Vaginal Michael Calculation Initial Michael Date Initial [...] Complications Tubal Sterilization Discharge Date Comments 0 [facility] in[facility] 40 Discharge Information Feeding Method Contraceptive Method Maternal HG B and HCT Levels Ob Episode Information Episode Created Date Number of Fetuses Patient Bloodtype Patient rh Status Prepregnancy Weight lbs Domestic Partner Domestic Partner Phone Father Name [employer] Derrick Operator Status 09/07/19 23 1 CLOSED Fetus Data First Name Last Name Admitted to NICU Weight (g) Sex Living Outcome Pediatric Complications Fetus ID Race Codes Race Delivery Type , Spontane ous 32270 Michael Calculation Initial Michael Date Initial Exam [...] Domestic Partner Domestic Partner Phone Father Name [employer] Derrick Operator Status 03/16/20 21 1 DELETED Michael Calculation [...] Domestic Partner Domestic Partner Phone Father Name [employer] Derrick Operator Status 03/16/20 21 1 DELETED Michael Calculation [...]
[2025-03-11 08:25] LABS: Hematocrit 39.7 % (37.0-47.0); Hemoglobin 12.6 g/dL (12.0-15.0); Immature Granulocyte Percent A 0.4 % (0-0.5); Lymphocytes Absolute Auto 1.70 K/mm3 (0.9-3.2); Mean Corpuscular HGB Conc 31.7 g/dl (32-36); Mean Corpuscular Hemoglobin 28.4 pg (26-34); Mean Corpuscular Volume 89.4 fl (80-100); Nucleated Red Blood Cells Absolute Auto 0.000 K/mm3 (0.0-0.012); Nucleated Red Blood Cells Perc 0.0 % (0.0-0.2); Platelet Count Result 227 k/mm3 (150-375); Red Blood Count 4.44 M/mm3 (4.2-5.4); White Blood Count 8.3 K/mm3 (4.5-10.0)
[2025-03-11] MEDS: SODIUM CHLORIDE 0.9% IV 1,000 ML 999 ML IV CONT (08:34)
[2025-03-11] MEDS: KETOROLAC 30 MG/ML VIAL (*BKC) IV PUSH (08:34)
[2025-03-11 08:39] LABS: BEDSIDEPREGUCG Negative (Negative)
[2025-03-11 08:49] LABS: Alanine Aminotransferase 15 U/L (6-35); Albumin Level 4.3 g/dL (3.5-5.1); Alkaline Phosphatase 77 U/L (38-126); Anion Gap 8 mmol/L (4-12); Aspartate Amino Transferase 25 U/L (14-36); Bilirubin,Total 0.5 mg/dL (0.2-1.3); Blood Urea Nitrogen 12 mg/dL (7-17); Calcium 8.8 mg/dL (8.4-10.2); Carbon Dioxide 24 mmol/L (22-30); Chloride 106 mmol/L (98-107); Estimated CRCL calculation 88 ml/min; Estimated Glomerular Filt Rate > 60; Glucose 103 mg/dL (65-110); Potassium 3.7 mmol/L (3.4-5.0); Sodium 138 mmol/L (137-145); Total Protein 7.4 g/dL (6.3-8.2)
--- NOTE | 2025-03-11 10:06 | ED_ITS ---
HPI - Abdominal Pain General Chief Complaint: Abdominal Pain Stated Complaint: abdominal pain Time Seen by Provider: 03/11/25 07:56 Source: patient Mode of arrival: ambulatory Limitations: no limitations History of Present Illness HPI narrative: 29-year-old with a history of marijuana abuse on a daily basis presents to the ER with a complains of abdominal pain which is been ongoing for last several months. She states that she constantly has nausea and vomiting. Denies any fever or chills. Patient states that she has not seen her primary doctor over a year because of finding pain pills. MD elicited complaint: abdominal pain Pertinent past history: none Onset (ago): month(s) Pain Consistency: constant Location: epigastric Severity: moderate Quality: cramping Radiation: none Migration to: no migration Exacerbating factors: eating Relieving factors: nothing Associated symptoms: denies other symptoms Related Data Home Medications ?Medication ?Instructions ?Recorded ?Confirmed ?Last Taken ?Type etonogestrel 68 mg subdermal 1 implant subdermal ONCE 11/18/24 11/18/24 Unknown History implant (Nexplanon) gabapentin 100 mg capsule 100 mg PO DAILY 11/18/2402/04 Unknown History Allergies Allergy/AdvReac Type Severity Reaction Status Date / Time promethazine AdvReac Unknown HIVES/VOMIT Verified 11/18/24 10:30 ING Review of Systems 2 Review of Systems: All systems reviewed & are unremarkable except as noted in HPI and below Constitutional: Constitutional: Reports no additional constitutional complaints Eyes: Eyes: Reports no additional eye complaints ENT: Reports system reviewed and no additional complaints, except as documented Cardiovascular: Cardiovascular: Reports no additional cardiovascular complaints Respiratory: Respiratory: Reports no additional respiratory complaints Gastrointestinal: Gastrointestinal: Reports no additional gastrointestinal complaints Musculoskeletal: Musculoskeletal: Reports no additional musculoskeletal complaints Exam 2 Narrative: GENERAL: Well-appearing, well-nourished, and in no acute distress. HEAD: Normocephalic, atraumatic. EYES: PERRLA and EOMI. ENT: Nares clear, no rhinorrhea or epistaxis. Mucous membranes moist. NECK: Supple. CHEST: Clear to auscultation. No respiratory distress. HEART: Regular rate and rhythm. No murmur heard. Normal peripheral pulses. ABDOMEN: Soft, nontender, nondistended, normal active bowel sounds. EXTREMITIES: Normal range of motion. No edema. SKIN: Warm, dry, no rash. NEURO: No focal deficits. Alert and oriented x3. PSYCH: Normal mood and affect. Course Course Emergency Course: Notified patient about her lab work, CT findings counseled regarding marijuana smoking advised her to follow up with the primary doctor. Vital Signs Vital signs: Vital Signs Temperature 36.3 C L 03/11/25 08:03 Pulse Rate 82 03/11/25 08:03 Respiratory Rate 18 03/11/25 08:03 Blood Pressure 123/73 03/11/25 08:03 Pulse Oximetry 98 03/11/25 08:03 Oxygen Delivery Room Air 03/11/25 08:03 Temperature 36.3 C L 03/11/25 08:03 Pulse Rate 82 03/11/25 08:03 Respiratory Rate 18 03/11/25 08:03 Blood Pressure 123/73 03/11/25 08:03 Pulse Oximetry 98 03/11/25 08:03 Oxygen Delivery Room Air 03/11/25 08:03 MDM - Abdominal Pain Lab Data 03/11/25 08:17 03/11/25 08:17 Labs: Lab Results 03/11/25 03/11/25 Range/Units 08:17 08:28 WBC 8.3 (4.5-10.0) K/mm3 RBC 4.44 (4.2-5.4) M/mm3 Hgb 12.6 (12.0-15.0) g/dL Hct 39.7 (37.0-47.0) % MCV 89.4 (80-100) fl MCH 28.4 (26-34) pg MCHC 31.7 L (32-36) g/dl RDW 14.7 H (11.5-14.5) % Plt Count 227 (150-375) k/mm3 MPV 10.3 (7.4-10.4) fl Immature Gran % (Auto) 0.4 (0-0.5) % Neut % (Auto) 71.2 (45.5-73.1) % Lymph % (Auto) 20.5 (18.3-44.2) % [place] % (Auto) 5.9 (2.6-8.5) % Eos % (Auto) 1.6 (0-4.4) % Baso % (Auto) 0.4 (0.2-1.2) % Lymph # (Auto) 1.70 (0.9-3.2) K/mm3 [place] # (Auto) 0.5 (0.1-0.6) K/mm3 Eos # (Auto) 0.1 (0-0.3) K/mm3 Baso # (Auto) 0.0 (0.0-0.1) K/mm3 Abs Immat Gran (auto) 0.03 (0.00-0.031) K/mm3 Absolute Neuts (auto) 5.9 (1.3-6.7) K/mm3 Absolute Nucleated RBC 0.000 (0.0-0.012) K/mm3 Nucleated RBC % 0.0 (0.0-0.2) % Sodium 138 (137-145) mmol/L Potassium 3.7 (3.4-5.0) mmol/L Chloride 106 (98-107) mmol/L Carbon Dioxide 24 (22-30) mmol/L Anion Gap 8 (4-12) mmol/L BUN 12 (7-17) mg/dL Creatinine 0.83 (0.7-1.0) mg/dL Estim Creat Clear Calc 88 ml/min Estimated GFR > 60 (59 - ) Glucose 103 (65-110) mg/dL Lactic Acid 0.8 (0.7-2.0) mmol/L Calcium 8.8 (8.4-10.2) mg/dL Total Bilirubin 0.5 (0.2-1.3) mg/dL AST 25 (14-36) U/L ALT 15 (6-35) U/L Alkaline Phosphatase 77 (38-126) U/L Total Protein 7.4 (6.3-8.2) g/dL Albumin 4.3 (3.5-5.1) g/dL POC Urine HCG, Qual Negative (Negative) Imaging Data Radiologist's impression: ITS Impressions Abdomen/Pelvis CT 03/11/25 09:13 IMPRESSION: 1. 2.3 similar left adnexal cyst. No other acute intra-abdominal/pelvic process. 2. Small sliding-type hiatal hernia. 3. Stable appearance of chronic asymmetric bilateral sacroiliitis, mild on the left and minimal on the right Discharge Plan Discharge Clinical Impression: Abdominal pain Qualifiers: Abdominal location: epigastric Qualified Code(s): R10.13 - Epigastric pain Patient Disposition: Home Condition: Stable Instructions: Abdominal Pain (ED) Additional Instructions: stop marijuana ,follow with your doctor Patient Language: Portuguese Prescriptions: No Action Nexplanon 68 mg implant 1 implant subdermal ONCE Rx Instructions: as a single dose gabapentin 100 mg capsule 100 mg PO DAILY amoxicillin-pot clavulanate 875-125 mg tablet 1 tablet PO Q12H 10 Days Qty: 20 0RF ibuprofen 800 mg tablet 800 mg PO TID 10 Days Qty: 30 0RF omeprazole 20 mg capsule,delayed release(DR/EC) 20 mg PO DAILY 14 Days Qty: 14 0RF ondansetron 4 mg tablet,disintegrating 4 mg PO Q8H PRN (Reason: nausea and vomiting) Qty: 14 0RF metoclopramide HCl [Reglan] 10 mg tablet 10 mg PO Q6H PRN (Reason: nausea and vomiting) Qty: 14 0RF Follow-up/Referrals: Jay Bermudez MD [Physician, Family Practice] UNKNOWN,DOCTOR [Primary Care Provider]
[2025-03-11 10:27] VITALS: PULSE 81; RESP 20; O2SAT 100
== END 2025-03-11 10:28 | disposition home or self-care (01) ==
PROVIDERS: Emergency Provider Family Medicine
DX: R10.13 Epigastric pain (principal)
CPT/HCPCS: 36415; 74177; 80053; 81025; 83605; 85025; 96361; 96374; 99284; J1885; J7030; Q9967